=== PATIENT | male | born 1945 | race Caucasian/White ===

== ENCOUNTER → 2016-12-19 | Outpatient (CLI) | payer MEDICARE, BC ==
[2016-12-19 15:41] LABS: CH 32.8; CHCM 32.7; HCT 38.6 % (39.0-53.0); HDW 2.67; HGB 12.7 gm/dL (13.0-17.5); MCH 33.2 pg (25.0-35.0); MCV 100.6 fL (80.0-100.0); Macrocytosis Slight; Mean Platelet Volume 8.6; RBC 3.84 m/uL (4.30-5.90); RDW 14.2 % (11.5-15.5); WBC 7.3 k/uL (3.8-10.6)
[2016-12-19 16:05] LABS: Anion Gap 13 mmol/L; Blood Urea Nitrogen 10 mg/dL (9-20); Carbon Dioxide 25 mmol/L (22-30); Chloride 104 mmol/L (98-107); Non-African American GFR(MDRD) >60 (>60 ml/min/1.73 sqM); Potassium 4.6 mmol/L (3.5-5.1); Sodium 142 mmol/L (137-145)
== END | disposition home or self-care (01) ==
LOC: LABWHC1 14:59
PROVIDERS: ATTEND Internal Medicine Cardiovascular Disease
DX: I47.2 Ventricular tachycardia (principal)
CPT/HCPCS: 36415; 80051; 82565; 84443; 84520; 85027

== ENCOUNTER → 2016-12-21 | Outpatient (CLI) | payer MEDICARE, BC | END | disposition home or self-care (01) | LOC: LABWHC1 11:07 | PROVIDERS: ATTEND Internal Medicine Cardiovascular Disease | DX: E05.90 Thyrotoxicosis, unspecified without thyrotoxic crisis or storm (principal) | CPT/HCPCS: 36415; 84439; 84481 ==

== ENCOUNTER → 2016-12-24 | Outpatient (CLI) | payer MEDICARE, BC | LOC: LABWHC1 10:24 | PROVIDERS: ATTEND Internal Medicine Endocrinology, Diabetes & Metabolism | DX: E05.00 Thyrotoxicosis with diffuse goiter without thyrotoxic crisis or storm (principal) | CPT/HCPCS: 36415; 84439; 84443; 84445; 84480 ==

== ENCOUNTER → 2017-01-09 | Outpatient (CLI) | payer MEDICARE, BC ==
[2017-01-09 12:06] LABS: Blood Urea Nitrogen 9 mg/dL (9-20); Non-African American GFR(MDRD) >60 (>60 ml/min/1.73 sqM)
--- NOTE | 2017-01-09 13:40 | CT ---
EXAMINATION TYPE: CT ChestAbdPelvis w con DATE OF EXAM: 01/09/2017 1:10 PM COMPARISON: CT cap October 01, 2016 HISTORY: f/u for right sided lung ca CT DLP: 830.9 mGycm. Automated Exposure Control for Dose Reduction was Utilized. CONTRAST: CT scan of the thorax, abdomen and pelvis is performed with oral and with IV Contrast, patient inject ed with 100 mL of Omnipaque 300. FINDINGS: LUNGS: Left apical scarring and bleb formation is redemonstrated. Some anterior subpleural fibrosis a djacent to fluid collection anteriorly right midlung is redemonstrated. There is persistent small rig ht basilar pleural effusion or fluid collection contiguous with this felt diminished in size versus p rior. Some right basilar linear scarring and/or atelectasis is redemonstrated with more focal nodular consolidation anteriorly right midlung on axial image 52 measuring 1.8 x 1.1 cm favor inflammatory c hange or atelectasis, neoplasm felt much less likely due to appearance and location but can be follow ed. There is linear scarring left medial lung base on axial image 53 redemonstrated. No left-sided no dules or masses are identified There is no pneumothorax seen. The tracheobronchial tree is patent. Right-sided volume loss with mediastinal shift is redemonstrated. Surgical changes from partial right -sided pneumonectomy are redemonstrated. MEDIASTINUM: There are no greater than 1 cm new noncalcified hilar or mediastinal lymph nodes. There is stable prominent right paratracheal 1.4 x 0.8 cm lymph node. Calcified subcentimeter subcarinal ly mph nodes are redemonstrated No cardiomegaly or pericardial effusion is seen. There is stable left-s ided dual lead pacemaker. Coronary artery calcifications are redemonstrated. Ascending aorta is stabl e measuring up to 4.1 cm in diameter. OTHER: Small degree of bilateral gynecomastia is again seen. LIVER/GB: Small dependent gallstone is redemonstrated in gallbladder. PANCREAS: Some atrophy and calcification in the pancreas consistent with product of chronic pancreati tis is redemonstrated. SPLEEN: No significant abnormality is seen. ADRENALS: 1 cm nodularity to the left adrenal gland on axial image 66 is stable, nonspecific. KIDNEYS: No significant abnormality is seen. BOWEL: A 3.7 cm diverticulum on coronal image 36 along the medial portion of the duodenum is unchange d from prior exam. Normal-appearing appendix is seen from cecum. No suspicious bowel dilatation is se en. GENITAL ORGANS: Prostate gland is stable and felt upper limits of normal in size. LYMPH NODES: No greater than 1cm abdominal or pelvic lymph nodes are appreciated. OSSEOUS STRUCTURES: There is facet arthropathy lower lumbar levels.. Vacuum disc phenomenon lumbosacr al junction is noted. OTHER: There is moderate atherosclerotic change of aorta and pelvic branch vessels. Some ectasia to r ight common iliac artery measuring up to 1.4 cm in diameter is redemonstrated. Small fat-containing umbilical hernia on axial image 95 is stable. IMPRESSION: Interval improvement in small right pleural effusion or fluid collection. No new mass or adenopathy is definitively seen to suggest neoplastic recurrent.
== END | disposition home or self-care (01) ==
LOC: RADCTMAIN 11:17
PROVIDERS: ATTEND Internal Medicine Hematology & Oncology
DX: Z03.89 Encounter for observation for other suspected diseases and conditions ruled out (principal); C34.11 Malignant neoplasm of upper lobe, right bronchus or lung
CPT/HCPCS: 82565; 84520; 71260; 74177; 36415; Q9967

== ENCOUNTER → 2017-02-11 | Outpatient (CLI) | payer MEDICARE, BC ==
[2017-02-11 12:06] LABS: ALT 19 U/L (21-72); AST 16 U/L (17-59)
== END | disposition home or self-care (01) ==
LOC: LABWHC1 11:21
PROVIDERS: ATTEND Internal Medicine Cardiovascular Disease
DX: I47.2 Ventricular tachycardia (principal)
CPT/HCPCS: 36415; 84443; 84450; 84460

== ENCOUNTER → 2017-02-25 | Outpatient (CLI) | payer MEDICARE, BC ==
--- NOTE | 2017-02-26 11:50 | NM ---
EXAMINATION TYPE: NM thyroid image w uptake DATE OF EXAM: 02/26/2017 11:43 AM COMPARISON: CT cap January 09, 2017. Older chest CT December 06, 2015. HISTORY: Graves' disease per order. Family history of thyroid disease per patient. TECHNIQUE: After the intravenous administration of 10.9 mCi Tc 99m Sodium Pertechnetate, thyroid imag ing is performed 10 minutes post injection. Thyroid iodine uptake is calculated after the oral admini stration of 11.0 uCi I-131 capsule. FINDINGS: There is normal distribution of activity throughout the gland. No suspicious increased or d iminished uptake at area of more hypodense probable nodule lower pole level right thyroid lobe. The 4 hour iodine uptake is calculated at 10% (normal range 8-14%). The 24-hour iodine uptake is calculate d at 28% (normal range 15-35%). IMPRESSION: Normal thyroid scan and uptake.
== END | disposition home or self-care (01) ==
LOC: RADNMMAIN 10:43
PROVIDERS: ATTEND Internal Medicine Endocrinology, Diabetes & Metabolism
DX: E05.00 Thyrotoxicosis with diffuse goiter without thyrotoxic crisis or storm (principal)
CPT/HCPCS: 78014; A9528; A9512

== ENCOUNTER → 2017-02-28 | Outpatient (CLI) | payer MEDICARE, BC | END | disposition home or self-care (01) | LOC: LABWHC1 11:53 | PROVIDERS: ATTEND Internal Medicine Endocrinology, Diabetes & Metabolism | DX: E05.90 Thyrotoxicosis, unspecified without thyrotoxic crisis or storm (principal) | CPT/HCPCS: 36415; 84439; 84443; 84445; 84480 ==

== ENCOUNTER → 2017-04-11 | Outpatient (CLI) | payer MEDICARE, BC ==
[2017-04-11 12:00] LABS: Blood Urea Nitrogen 10 mg/dL (9-20); Non-African American GFR(MDRD) >60 (>60 ml/min/1.73 sqM)
--- NOTE | 2017-04-11 14:08 | CT ---
EXAMINATION TYPE: CT ChestAbdPelvis w con DATE OF EXAM: 04/11/2017 COMPARISON: CT cap January 09, 2017. HISTORY: Lung cancer progress study. CT DLP: 1088.6 mGycm. Automated Exposure Control for Dose Reduction was Utilized. CONTRAST: CT scan of the thorax, abdomen and pelvis is performed with oral and with IV Contrast, patient inject ed with 100 mL of Omnipaque 300. FINDINGS: LUNGS: Mild left apical scarring is redemonstrated. There is persistent small right pleural fluid col lection that does not completely layer dependently. No significant change from prior study is seen. T here is additional right basilar scarring redemonstrated. Slightly more prominent nodular right anter ior basilar component measures 15 x 7 mm on current study less prominent than prior exam. No suspicio us new nodule or adenopathy is present. Right-sided volume loss with mediastinal shift is again seen. Right-sided surgical changes are redemonstrated. MEDIASTINUM: There are no greater than 1 cm new hilar or mediastinal lymph nodes. There is stable ri ght paratracheal lymph node measuring 13 x 8 mm on axial image 25. Calcified subcentimeter subcarinal lymph nodes are redemonstrated. No pericardial effusion is seen. Cardiomegaly is redemonstrated. Th ere is dual lead pacemaker/AICD seen. Coronary artery calcification is again seen. Ascending aorta me asures up to 4.0 cm in diameter on axial image 33. OTHER: Bilateral gynecomastia is redemonstrated. LIVER/GB: Tiny dependent gallstone is again seen on axial image 71. PANCREAS: Atrophic calcified pancreas consistent with product of chronic pancreatitis is redemonstrat ed. SPLEEN: No significant abnormality is seen. ADRENALS: No significant abnormality is seen. KIDNEYS: No significant abnormality is seen. BOWEL: Fecal prominence in the rectum is present. No suspicious bowel dilatation is seen. Moderate fe arnold material throughout the distal colon is somewhat prominent. There is stable 3 cm diverticulum of duodenal near axial image 79 there is GENITAL ORGANS: Prostate gland felt within normal limits. LYMPH NODES: No greater than 1cm abdominal or pelvic lymph nodes are appreciated. OSSEOUS STRUCTURES: Facet arthropathy lower lumbar levels is seen. Multilevel spurring and spine is p resent. There is healing or healed right posterior lateral rib fracture deformity of seventh rib rede monstrated. OTHER: There is moderate to severe calcified atherosclerotic change of the distal abdominal aorta ext ending to pelvic branch vessels. Small fat-containing umbilical hernia is stable. IMPRESSION: Postsurgical changes right lung redemonstrated. No new mass or adenopathy is seen to sugg est neoplastic recurrence.
== END | disposition home or self-care (01) ==
LOC: RADCTMAIN 11:14
PROVIDERS: ATTEND Internal Medicine Hematology & Oncology
DX: C34.11 Malignant neoplasm of upper lobe, right bronchus or lung (principal); E05.00 Thyrotoxicosis with diffuse goiter without thyrotoxic crisis or storm; E05.90 Thyrotoxicosis, unspecified without thyrotoxic crisis or storm; Z98.890 Other specified postprocedural states
CPT/HCPCS: 84439; 84443; 82565; 84520; 71260; 74177; 36415; Q9967

== ENCOUNTER → 2017-06-19 | Outpatient (CLI) | payer MEDICARE, BC | END | disposition home or self-care (01) | LOC: LABWHC1 12:25 | PROVIDERS: ATTEND Internal Medicine Endocrinology, Diabetes & Metabolism | DX: E05.90 Thyrotoxicosis, unspecified without thyrotoxic crisis or storm (principal) | CPT/HCPCS: 36415; 84439; 84443 ==

== ENCOUNTER → 2017-06-24 | Outpatient (CLI) | payer MEDICARE, BC ==
[2017-06-24 15:32] LABS: Anion Gap 10 mmol/L; Blood Urea Nitrogen 9 mg/dL (9-20); Carbon Dioxide 26 mmol/L (22-30); Chloride 105 mmol/L (98-107); Magnesium 1.9 mg/dL (1.6-2.3); Non-African American GFR(MDRD) >60 (>60 ml/min/1.73 sqM); Potassium 4.8 mmol/L (3.5-5.1); Sodium 141 mmol/L (137-145)
== END | disposition home or self-care (01) ==
LOC: LABWHC1 14:55
PROVIDERS: ATTEND Internal Medicine Cardiovascular Disease
DX: I47.2 Ventricular tachycardia (principal)
CPT/HCPCS: 36415; 80051; 82565; 83735; 84520

== ENCOUNTER → 2017-08-06 | Outpatient (CLI) | payer MEDICARE, BC ==
[2017-08-06 11:40] LABS: Blood Urea Nitrogen 7 mg/dL (9-20); Non-African American GFR(MDRD) >60 (>60 ml/min/1.73 sqM)
--- NOTE | 2017-08-06 13:16 | CT ---
EXAMINATION TYPE: CT ChestAbdPelvis w con DATE OF EXAM: 08/06/2017 COMPARISON: 04/11/2017 HISTORY: Lung CA CT DLP: 2172 mGycm CONTRAST: CT scan of the chest, abdomen and pelvis is performed with Oral Contrast and with IV Contrast, patien t injected with 100 mL of Omnipaque 300. CT Chest: LUNGS: Partially loculated right-sided pleural effusion persists and may be slightly smaller in size. Adjacent parenchymal scar or atelectasis unchanged. Postoperative changes right hemithorax. No evide nce for suspicious nodule or mass at this time. Left upper lobe emphysematous change. MEDIASTINUM: St able ascending thoracic aorta measures of 4.2 cm AP dimension. The heart is not enlarged. No evidenc e for mediastinal mass or adenopathy. HILAR STRUCTURES: No evidence for mass. No hilar adenopathy is appreciated. OTHER: Bilateral gynecomastia. CONTRAST CT ABDOMEN AND PELVIS FINDINGS: LIVER/GB: No calcified gallstones. No space occupying hepatic lesion. Biliary tree is of normal ca liber. PANCREAS: No inflammation. No distinct mass. Atrophic changes of the pancreas with calcifications n oted compatible with chronic pancreatitis. SPLEEN: No splenic enlargement. No lesion seen. ADRENALS: No nodule. No thickening. KIDNEYS/BLADDER: No hydronephrosis. No nephrolithiasis. No distinct renal mass. BOWEL: Normal appendix. Normal bowel caliber. No inflammation. GENITAL ORGANS: No gross abnormality. LYMPH NODES: No greater than 1cm abdominal or pelvic lymph nodes are appreciated. AORTA: No significant abnormality. OSSEOUS STRUCTURES: No significant abnormality is seen. OTHER: No significant additional abnormality is seen. IMPRESSION: 1. Postoperative changes right hemithorax is partially loculated pleural effusion. No evidence for re current or residual neoplasm. No evidence for metastatic disease at this time.
== END | disposition home or self-care (01) ==
LOC: RADCTMAIN 11:02
PROVIDERS: ATTEND Internal Medicine Hematology & Oncology
DX: C34.11 Malignant neoplasm of upper lobe, right bronchus or lung (principal); J90 Pleural effusion, not elsewhere classified; Z98.890 Other specified postprocedural states
CPT/HCPCS: 82565; 84520; 71260; 74177; 36415; Q9967

== ENCOUNTER 2017-10-21 09:21 | Inpatient (IN) | payer MEDICARE, BC ==
--- NOTE | 2017-10-21 09:39 | ED ---
General Adult HPI - General Chief complaint: Shortness of Breath Stated complaint: SHAHID Time Seen by Provider: 10/21/17 09:25 Source: patient, family, RN notes reviewed Mode of arrival: wheelchair - History of Present Illness Initial comments: This is a 71-year-old male who presents emergency department with past medical history significant for lung cancer and a lobectomy. Patient states he is a smoker continues to smoke. Patient comes in today complaining of difficulty breathing which is worsening over the last few weeks. Family notes that he is much more pale than normal. Patient denies being on any blood thinners. Patient denies any black or bloody stools. Patient denies abdominal pain patient denies nausea vomiting diarrhea. Patient denies any chest pain or palpitations. Patient denies headache patient denies any numbness weakness. Patient denies lightheadedness dizziness or near syncopal episode. - Related Data Home Medications Medication Instructions Recorded Confirmed Aspirin [Adult Low Dose Aspirin EC] 81 mg PO DAILY 01/06/16 10/21/17 Carvedilol 6.25 mg PO BID 01/06/16 10/21/17 Citalopram Hydrobromide [CeleXA] 40 mg PO DAILY 10/21/17 10/21/17 Gemfibrozil [Lopid] 600 mg PO AC-BID 10/21/17 10/21/17 Mexiletine [Mexitil] 150 mg PO DAILY 10/21/17 10/21/17 Omeprazole 40 mg PO DAILY 10/21/17 10/21/17 Potassium Chloride ER [K-Dur 10] 10 meq PO DAILY 10/21/17 10/21/17 Pregabalin [Lyrica] 75 mg PO BID 10/21/17 10/21/17 Rosuvastatin [Crestor] 10 mg PO DAILY 10/21/17 10/21/17 Saw Benton 450mg 900 mg PO BID 10/21/17 10/21/17 Tamsulosin [Flomax] 0.4 mg PO DAILY 10/21/17 10/21/17 metFORMIN HCL 1,000 mg PO BID 10/21/17 10/21/17 Allergies Allergy/AdvReac Type Severity Reaction Status Date / Time No Known Allergies Allergy Verified 10/21/17 10:39 Review of Systems ROS Statement: Those systems with pertinent positive or pertinent negative responses have been documented in the HPI. ROS Other: All systems not noted in ROS Statement are negative. Past Medical History Past Medical History: Cancer, Diabetes Mellitus, GERD/Reflux, Hyperlipidemia, Hypertension, Renal Disease Additional Past Medical History / Comment(s): R sided LUNG CA, cardiomyopathy with AICD, STATES WAS TOLD HAD KIDNEY STONES IN PAST, FREQUENT SINUSITIS, IDDM diagnosed within the past year, History of Any Multi-Drug Resistant Organisms: None Reported Past Surgical History: AICD, Orthopedic Surgery Additional Past Surgical History / Comment(s): 06/04/16 Robotic assisted R thoracoscopy, R upper lobectomy, mediastinal lymph node disection, cryoablation intercostal nerves 3-7. Other surgical hx: AICD, DFT, RT SHOULDER SX for dislocation, AICHA CATARACTS, bilateral lasik eye surgery, testicular surgery, Past Anesthesia/Blood Transfusion Reactions: No Reported Reaction Type of Cardiac Device: AICD Device Placement Date:: 2005 [employer] Past Psychological History: Anxiety Smoking Status: Current every day smoker Past Alcohol Use History: None Reported Past Drug Use History: None Reported - Past Family History Father Family Medical History: Cancer Additional Family Medical History / Comment(s): Father of lung cancer in his 80's Mother Family Medical History: Myocardial Infarction ([place]) Additional Family Medical History / Comment(s): Mother of [place] in her 80's General Exam - General Exam Comments Initial Comments: GENERAL: Patient is well-developed and well-nourished. Patient is nontoxic and well- hydrated and is in mild distress. ENT: Neck is soft and supple. No significant lymphadenopathy is noted. Oropharynx is clear. Moist mucous membranes. Neck has full range of motion without eliciting any pain. EYES: The sclera were anicteric and conjunctiva is pale. Extraocular movements were intact and pupils were equal round and reactive to light. Eyelids were unremarkable. PULMONARY: Unlabored respirations. Good breath sounds bilaterally. No audible rales rhonchi or wheezing was noted. CARDIOVASCULAR: There is a regular rate and rhythm without any murmurs gallops or rubs. ABDOMEN: Soft and nontender with normal bowel sounds. No palpable organomegaly was noted. There is no palpable pulsatile mass. SKIN: Patient's skin is extremely pale NEUROLOGIC: Patient is alert and oriented x3. Cranial nerves II through XII are grossly intact. Motor and sensory are also intact. Normal speech, volume and content. Symmetrical smile. MUSCULOSKELETAL: Normal extremities with adequate strength and full range of motion. No lower extremity swelling or edema. No calf tenderness. LYMPHATICS: No significant lymphadenopathy is noted PSYCHIATRIC: Normal psychiatric evaluation. Normal interpersonal interactions appears functionally intact in deals appropriately with others. No signs of depression. No signs of anxiety. Course Vital Signs 10/21/17 09:23 Temperature 97 F L Pulse Rate 77 Respiratory 20 Rate Blood Pressure 130/58 O2 Sat by Pulse 100 Oximetry Medical Decision Making - Medical Decision Making EKG shows sinus rhythm at a rate of 76 bpm [place] interval 236 QRS is 108 QT interval is 410 QTC is 461. Patient's EKG shows no ST segment elevation or depression or T wave abnormalities are noted Chest x-ray shows right-sided pleural effusion. Patient's hemoglobin was 6.3 so I gave the patient a unit of packed red blood cells. I spoke with the primary medical care doctor admitted the patient and wrote admitting orders - Lab Data Result diagrams: 10/21/17 09:43 10/21/17 09:43 Lab Results 10/21/17 10/21/17 10/21/17 Range/Units 09:43 09:43 09:43 WBC 1.4 L* (3.8-10.6) k/uL RBC 1.95 L (4.30-5.90) m/uL Hgb 6.3 L* (13.0-17.5) gm/dL Hct 18.7 L* (39.0-53.0) % MCV 95.8 (80.0-100.0) fL MCH 32.3 (25.0-35.0) pg MCHC 33.8 (31.0-37.0) g/dL RDW 25.3 H (11.5-15.5) % Plt Count 62 L (150-450) k/uL Neutrophils % 42 % Lymphocytes % 46 % Monocytes % 8 % Eosinophils % 1 % Basophils % 1 % Neutrophils # 0.6 L (1.3-7.7) k/uL Lymphocytes # 0.6 L (1.0-4.8) k/uL Monocytes # 0.1 (0-1.0) k/uL Eosinophils # 0.0 (0-0.7) k/uL Basophils # 0.0 (0-0.2) k/uL Manual Slide Review Performed Hypochromasia Slight Poikilocytosis Moderate Anisocytosis Marked Microcytosis Slight Macrocytosis Moderate Fragmented RBCs Present PT (9.0-12.0) sec INR (<1.2) APTT (22.0-30.0) sec Sodium (137-145) mmol/L Potassium (3.5-5.1) mmol/L Chloride (98-107) mmol/L Carbon Dioxide (22-30) mmol/L Anion Gap mmol/L BUN (9-20) mg/dL Creatinine (0.66-1.25) mg/dL Est GFR (MDRD) Af Amer (>60 ml/min/1.73 sqM) Est GFR (MDRD) Non-Af (>60 ml/min/1.73 sqM) Glucose (74-99) mg/dL Calcium (8.4-10.2) mg/dL Total Bilirubin (0.2-1.3) mg/dL AST (17-59) U/L ALT (21-72) U/L Alkaline Phosphatase (38-126) U/L Total Creatine Kinase 33 L (55-170) U/L CK-MB (CK-2) 1.6 (0.0-2.4) ng/mL CK-MB (CK-2) Rel Index 4.8 Troponin I <0.012 (0.000-0.034) ng/mL Total Protein (6.3-8.2) g/dL Albumin (3.5-5.0) g/dL Stool Occult Blood (Negative) Blood Type A Negative Blood Type Recheck No Antibody Screen NEGATIVE Crossmatch See Detail Spec Expiration Date 10/24/2017234210/21/17 10/21/17 10/21/17 Range/Units 09:43 09:43 09:43 WBC (3.8-10.6) k/uL RBC (4.30-5.90) m/uL Hgb (13.0-17.5) gm/dL Hct (39.0-53.0) % MCV (80.0-100.0) fL MCH (25.0-35.0) pg MCHC (31.0-37.0) g/dL RDW (11.5-15.5) % Plt Count (150-450) k/uL Neutrophils % % Lymphocytes % % Monocytes % % Eosinophils % % Basophils % % Neutrophils # (1.3-7.7) k/uL Lymphocytes # (1.0-4.8) k/uL Monocytes # (0-1.0) k/uL Eosinophils # (0-0.7) k/uL Basophils # (0-0.2) k/uL Manual Slide Review Hypochromasia Poikilocytosis Anisocytosis Microcytosis Macrocytosis Fragmented RBCs PT 11.4 (9.0-12.0) sec INR 1.2 H (<1.2) APTT 24.3 (22.0-30.0) sec Sodium 133 L (137-145) mmol/L Potassium 4.3 (3.5-5.1) mmol/L Chloride 102 (98-107) mmol/L Carbon Dioxide 21 L (22-30) mmol/L Anion Gap 10 mmol/L BUN 14 (9-20) mg/dL Creatinine 0.80 (0.66-1.25) mg/dL Est GFR (MDRD) Af Amer >60 (>60 ml/min/1.73 sqM) Est GFR (MDRD) Non-Af >60 (>60 ml/min/1.73 sqM) Glucose 137 H (74-99) mg/dL Calcium 8.9 (8.4-10.2) mg/dL Total Bilirubin 1.1 (0.2-1.3) mg/dL AST 12 L (17-59) U/L ALT 25 (21-72) U/L Alkaline Phosphatase 66 (38-126) U/L Total Creatine Kinase (55-170) U/L CK-MB (CK-2) (0.0-2.4) ng/mL CK-MB (CK-2) Rel Index Troponin I (0.000-0.034) ng/mL Total Protein 6.7 (6.3-8.2) g/dL Albumin 4.0 (3.5-5.0) g/dL Stool Occult Blood Negative (Negative) Blood Type Blood Type Recheck Antibody Screen Crossmatch Spec Expiration Date Disposition Clinical Impression: Anemia Disposition: [facility] Referrals: Bradly Yang MD [Primary Care Provider] - 1-2 days Time of Disposition: 10:13
[2017-10-21 09:52] LABS: Anisocytosis Marked; Basophils % (A) 1 %; Eosinophils % (A) 1 %; Hypochromasia Slight; Lymphocytes # (A) 0.6 k/uL (1.0-4.8); Lymphocytes % (A) 46 %; MCH 32.3 pg (25.0-35.0); MCHC 33.8 g/dL (31.0-37.0); MCV 95.8 fL (80.0-100.0); Macrocytosis Moderate; Mean Platelet Volume 13.2; Microcytosis Slight; Monocytes # (A) 0.1 k/uL (0-1.0); Monocytes % (A) 8 %; Neutrophils # (A) 0.6 k/uL (1.3-7.7); Neutrophils % (A) 42 %; Poikilocytosis Moderate; RBC 1.95 m/uL (4.30-5.90)
[2017-10-21 10:03] LABS: INR 1.2 (<1.2); Partial Thromboplastin Time 24.3 sec (22.0-30.0); Prothrombin Time 11.4 sec (9.0-12.0)
[2017-10-21 10:04] LABS: ALT 25 U/L (21-72); AST 12 U/L (17-59); Alkaline Phosphatase 66 U/L (38-126); Anion Gap 10 mmol/L; Blood Urea Nitrogen 14 mg/dL (9-20); Calcium 8.9 mg/dL (8.4-10.2); Carbon Dioxide 21 mmol/L (22-30); Chloride 102 mmol/L (98-107); Glucose 137 mg/dL (74-99); Potassium 4.3 mmol/L (3.5-5.1); Sodium 133 mmol/L (137-145); Total Bilirubin 1.1 mg/dL (0.2-1.3); Total Protein 6.7 g/dL (6.3-8.2)
--- NOTE | 2017-10-21 10:08 | XR ---
EXAMINATION TYPE: XR chest 2V DATE OF EXAM: 10/21/2017 HISTORY: difficulty breathing. REFERENCE: Previous study dated 06/21/2016. FINDINGS: There is a bipolar pacemaker in place on the left. The lungs are overinflated. The heart is enlarged. There is a worsening, chronic right pleural reacti on. This may represent some loculated fluid or pleural thickening.. IMPRESSION: 1. COPD. 2. CARDIOMEGALY. 3. WORSENING RIGHT-SIDED PLEURAL REACTION.
[2017-10-21 10:13] LABS: RDW 25.3 % (11.5-15.5)
[2017-10-21 10:14] LABS: Creatine Kinase 33 U/L (55-170); WBC 1.4 k/uL (3.8-10.6)
[2017-10-21 10:15] LABS: HCT 18.7 % (39.0-53.0); HGB 6.3 gm/dL (13.0-17.5)
[2017-10-21 10:26] LABS: Creatine Kinase MB 1.6 ng/mL (0.0-2.4); Troponin I <0.012 ng/mL (0.000-0.034)
[2017-10-21 10:29] LABS: Platelet Count 62 k/uL (150-450)
[2017-10-21 10:31] LABS: RBC Fragments Present
[2017-10-21] MEDS ORDERED: SODIUM CHLORIDE 0.9% 1,000 ML IV ONE (10:51)
--- NOTE | 2017-10-21 13:58 | P.CONS ---
History of Present Illness - Reason for Consult Consult date: 10/21/17 New onset Pancytopenia. History of lung cancer - History of Present Illness The patient is a 71-year-old gentleman, well-known to myself. 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 He underwent right upper lobectomy , revealing a 3.2 cm, cell cancer. Initially one lymph node was felt to be involved, but subsequently this was felt to be a fragment of the main tumor. After recovery from surgery, the patient had adjuvant chemotherapy, which he completed about a year ago. He was then placed on observation. The patient was admitted a few weeks ago to [facility], with COPD exacerbation and suspected pneumonia. He has a chronic right-sided located pleural effusion since his surgery, which is slowly diminished in size. It was some concern during that admission about progression, but comparison of imaging ruled that out. The patient was treated with antibiotics and steroids and aerosols, and was subsequently discharged post improvement. He has unfortunately continued to smoke. It appears that he required antibiotics again with a Z-Bethel, as well as oral steroids. Despite the same, his breathing continued to worsen, over the past 2 weeks. He also reported a cough with minimal mostly clear expectoration. Due to progressive shortness of breath he came back to the emergency room. His family had also noted significant pallor. Chest x-ray noted possible progression of the right pleural effusion. Interestingly his CBC showed pancytopenia with white count 1.4, hemoglobin of 6.3, platelets of 62. This is a new finding, and recovered after completion of chemotherapy. Therefore admitted, and consult placed a further evaluation. He is currently receiving a unit of blood. Review of Systems Constitutional: Reports fatigue, Reports weakness Eyes: denies blurred vision, denies pain Ears: deny: decreased hearing, ear discharge, earache, tinnitus Ears, nose, mouth and throat: Reports nasal congestion, Reports post-nasal drip , Denies headache, Denies sore throat Cardiovascular: Reports dyspnea on exertion Respiratory: Reports cough with sputum, Reports dyspnea Gastrointestinal: Denies abdominal pain, Denies diarrhea, Denies nausea, Denies vomiting Genitourinary: Reports urinary frequency Musculoskeletal: Reports muscle weakness Integumentary: Denies pruritus, Denies rash Neurological: Reports weakness Psychiatric: Denies anxiety, Denies depression Endocrine: Reports fatigue, Denies weight change Hematologic/Lymphatic: Reports as per HPI Past Medical History Past Medical History: Cancer, Diabetes Mellitus, GERD/Reflux, Hyperlipidemia, Hypertension, Renal Disease Additional Past Medical History / Comment(s): R sided LUNG CA, cardiomyopathy with AICD, STATES WAS TOLD HAD KIDNEY STONES IN PAST, FREQUENT SINUSITIS, IDDM diagnosed within the past year, History of Any Multi-Drug Resistant Organisms: None Reported Past Surgical History: AICD, Orthopedic Surgery Additional Past Surgical History / Comment(s): 06/04/16 Robotic assisted R thoracoscopy, R upper lobectomy, mediastinal lymph node disection, cryoablation intercostal nerves 3-7. Other surgical hx: AICD, DFT, RT SHOULDER SX for dislocation, AICHA CATARACTS, bilateral lasik eye surgery, testicular surgery, Past Anesthesia/Blood Transfusion Reactions: No Reported Reaction Type of Cardiac Device: AICD Device Placement Date:: 2005 [employer] Past Psychological History: Anxiety Additional Psychological History / Comment(s): Pt currently resides with son. He is independent. He drives. Smoking Status: Current every day smoker Past Alcohol Use History: None Reported Additional Past Alcohol Use History / Comment(s): SMOKES 1 PPD SINCE AGE OF 17 OR YOUNGER Past Drug Use History: None Reported - Past Family History Father Family Medical History: Cancer Additional Family Medical History / Comment(s): Father of lung cancer in his 80's Mother Family Medical History: Myocardial Infarction ([place]) Additional Family Medical History / Comment(s): Mother of [place] in her 80's Medications and Allergies Home Medications Medication Instructions Recorded Confirmed Type Aspirin [Adult Low Dose Aspirin EC] 81 mg PO DAILY 01/06/16 10/21/17 History Carvedilol 6.25 mg PO BID 01/06/16 10/21/17 History Citalopram Hydrobromide [CeleXA] 40 mg PO DAILY 10/21/17 10/21/17 History Gemfibrozil [Lopid] 600 mg PO AC-BID 10/21/17 10/21/17 History Mexiletine [Mexitil] 150 mg PO DAILY 10/21/17 10/21/17 History Omeprazole 40 mg PO DAILY 10/21/17 10/21/17 History Potassium Chloride ER [K-Dur 10] 10 meq PO DAILY 10/21/17 10/21/17 History Pregabalin [Lyrica] 75 mg PO BID 10/21/17 10/21/17 History Rosuvastatin [Crestor] 10 mg PO DAILY 10/21/17 10/21/17 History Saw [place] 450mg 900 mg PO BID 10/21/17 10/21/17 History Tamsulosin [Flomax] 0.4 mg PO DAILY 10/21/17 10/21/17 History guaiFENesin-DM 600/30MG [Mucinex 1 each PO Q12HR 10/21/17 10/21/17 History Dm] metFORMIN HCL 1,000 mg PO BID 10/21/17 10/21/17 History Allergies Allergy/AdvReac Type Severity Reaction Status Date / Time No Known Allergies Allergy Verified 10/21/17 10:39 Physical Exam Vitals: Vital Signs Temp Pulse Resp BP Pulse Ox 10/21/17 11:48 98 F 72 18 109/57 100 10/21/17 11:20 98 F 74 18 113/55 100 10/21/17 11:07 98.2 F 72 18 113/66 10/21/17 09:23 97 F L 77 20 130/58 100 Intake and Output 10/20/17 10/21/17 10/21/17 22:59 06:59 14:59 Intake Total 0 Balance 0 Intake: Blood Product 0 Rc As-1 Unit 0 [id number] Other: Weight 99.79 kg Patient Weight 10/22/17 06:59 Weight 99.79 kg - Constitutional General appearance: no acute distress - EENT Eyes: EOMI, PERRLA ENT: hearing grossly normal, normal oropharynx - Neck Neck: no lymphadenopathy Thyroid: bilateral: normal size - Respiratory Respiratory: bilateral: diminished, wheezing - Cardiovascular Rhythm: regular Heart sounds: normal: S1, S2 - Gastrointestinal General gastrointestinal: normal bowel sounds, soft - Integumentary Integumentary: normal - Neurologic Neurologic: CNII-XII intact - Musculoskeletal Musculoskeletal: generalized weakness, strength equal bilaterally - Psychiatric Psychiatric: A&O x's 3, appropriate affect Results CBC & Chem 7: 10/21/17 09:43 10/21/17 09:43 Labs: Abnormal Lab Results - Last 24 Hours (Table) 10/21/17 10/21/17 10/21/17 Range/Units 09:43 09:43 09:43 WBC 1.4 L* (3.8-10.6) k/uL RBC 1.95 L (4.30-5.90) m/uL Hgb 6.3 L* (13.0-17.5) gm/dL Hct 18.7 L* (39.0-53.0) % RDW 25.3 H (11.5-15.5) % Plt Count 62 L (150-450) k/uL Neutrophils # 0.6 L (1.3-7.7) k/uL Lymphocytes # 0.6 L (1.0-4.8) k/uL INR (<1.2) Sodium (137-145) mmol/L Carbon Dioxide (22-30) mmol/L Glucose (74-99) mg/dL AST (17-59) U/L Total Creatine Kinase 33 L (55-170) U/L Crossmatch See Detail 10/21/17 10/21/17 Range/Units 09:43 09:43 WBC (3.8-10.6) k/uL RBC (4.30-5.90) m/uL Hgb (13.0-17.5) gm/dL Hct (39.0-53.0) % RDW (11.5-15.5) % Plt Count (150-450) k/uL Neutrophils # (1.3-7.7) k/uL Lymphocytes # (1.0-4.8) k/uL INR 1.2 H (<1.2) Sodium 133 L (137-145) mmol/L Carbon Dioxide 21 L (22-30) mmol/L Glucose 137 H (74-99) mg/dL AST 12 L (17-59) U/L Total Creatine Kinase (55-170) U/L Crossmatch Chest x-ray: report reviewed Assessment and Plan (1) Pancytopenia Narrative/Plan: This is a new finding for the patient. He did have some cytopenias when on chemotherapy, but these have subsequently recovered. Agree with transfusing in the acute setting, as needed, to keep hemoglobin above 7. Platelet counts are currently adequate. I will start the patient on filgrastim to improve his WBC. Regarding etiology, a possibility could be suppression of the bone marrow ( which could be compromised somewhat at baseline due to prior chemotherapy), due to infection, such as a viral infection affecting the respiratory tract, given his symptoms. I will order workup to rule out other causes of pancytopenia. Another concern in this patient could be chemotherapy related myelodysplasia or even leukemia, counts do not improve with resolution of his presenting complaints. Current Visit: Yes Status: Acute Code(s): D61.818 - OTHER PANCYTOPENIA SNOMED Code(s): 491933982 (2) Squamous cell lung cancer Narrative/Plan: She is status post surgery and chemotherapy. Most recent imaging, done within the last month or so at [facility] did not show any evidence of progression. Noted, he does have a chronic small right-sided pleural effusion since his surgery, which have not shown any evidence of progression. On clinical exam today, there does not appear to be definite evidence of increase. CT of the chest will be repeated Current Visit: Yes Status: Acute Code(s): C34.90 - MALIGNANT NEOPLASM OF UNSP PART OF UNSP BRONCHUS OR LUNG SNOMED Code(s): 442278132 Plan: Defer to the admitting service and other consultants for management of his respiratory issues and other medical problems
[2017-10-21] MEDS ORDERED: RX INFO: IV CONTRAST WAS GIVEN 1 EACH MISC MISCELLANE PRN (14:02)
[2017-10-21] MEDS ORDERED: guaiFENesin SYRUP 100MG/5ML 200 MG/10 ML CUP PO PRN (14:30)
[2017-10-21 17:00] LABS: Glucose,Whole Blood 177 mg/dL (75-99)
[2017-10-21] MEDS: GEMFIBROZIL 600 MG TAB PO SCH (17:44)
[2017-10-21] MEDS: INSULIN ASPART 100 UNIT/ML 1 ML 10 ML VIAL SQ SCH ×2 (17:48→20:46)
[2017-10-21 18:59] LABS: Anisocytosis Marked; Basophils % (A) 1 %; Eosinophils % (A) 1 %; Hypochromasia Slight; Lymphocytes # (A) 0.8 k/uL (1.0-4.8); Lymphocytes % (A) 56 %; MCH 31.4 pg (25.0-35.0); MCHC 33.6 g/dL (31.0-37.0); MCV 93.3 fL (80.0-100.0); Macrocytosis Slight; Mean Platelet Volume 11.5; Microcytosis Slight; Monocytes # (A) 0.1 k/uL (0-1.0); Monocytes % (A) 6 %; Neutrophils # (A) 0.5 k/uL (1.3-7.7); Neutrophils % (A) 33 %; Platelet Count 65 k/uL (150-450); Poikilocytosis Moderate; RBC 2.14 m/uL (4.30-5.90)
[2017-10-21 19:01] LABS: HGB 6.7 gm/dL (13.0-17.5); RDW 25.1 % (11.5-15.5); WBC 1.4 k/uL (3.8-10.6)
[2017-10-21 20:17] LABS: Polychromasia Present
[2017-10-21 20:32] LABS: Glucose,Whole Blood 145 mg/dL (75-99)
[2017-10-21] MEDS: guaiFENesin-DM 600/30MG 1 EACH TAB.ER.12H PO SCH (20:45)
[2017-10-21] MEDS: metFORMIN 500 MG TAB PO SCH (20:45)
[2017-10-21] MEDS: CARVEDILOL 6.25 MG TAB PO SCH (20:45)
[2017-10-21] MEDS: PREGABALIN 75 MG CAP PO SCH (20:48)
[2017-10-21 23:37] LABS: Hemoglobin A1C 6.6 % (4.0-6.0)
[2017-10-21 23:57] LABS: Anisocytosis Marked; Hypochromasia Slight; MCH 31.8 pg (25.0-35.0); MCHC 33.4 g/dL (31.0-37.0); MCV 95.2 fL (80.0-100.0); Macrocytosis Moderate; Mean Platelet Volume 13.1; Microcytosis Slight; Poikilocytosis Moderate; RBC 1.97 m/uL (4.30-5.90)
[2017-10-21 23:58] LABS: RDW 25.2 % (11.5-15.5)
[2017-10-22 00:03] LABS: HGB 6.2 gm/dL (13.0-17.5); WBC 1.1 k/uL (3.8-10.6)
[2017-10-22 00:04] LABS: HCT 18.7 % (39.0-53.0); Platelet Count 57 k/uL (150-450)
[2017-10-22] MEDS: FILGRASTIM-SNDZ 300 MCG/0.5 ML SYRINGE SQ SCH ×2 (00:21→08:45)
[2017-10-22] MEDS: ZOLPIDEM 10 MG TAB PO PRN ×2 (00:21→19:55)
[2017-10-22 00:31] LABS: Band Neutrophils % 2 %; Eosinophils # (M) 0.01 k/uL (0-0.7); Large Platelets Present; Lymphocytes # (M) 0.62 k/uL (1.0-4.8); Monocytes # (M) 0.06 k/uL (0-1.0); Neutrophils % (M) 36 %; Nucleated Red Blood Cells 0 /100 WBC (0-0); Total Cells Counted 100
[2017-10-22 06:48] LABS: Anisocytosis Marked; HCT 22.9 % (39.0-53.0); HGB 7.4 gm/dL (13.0-17.5); Hypochromasia Slight; MCH 31.4 pg (25.0-35.0); MCHC 32.4 g/dL (31.0-37.0); MCV 96.9 fL (80.0-100.0); Macrocytosis Moderate; Mean Platelet Volume 12.6; Microcytosis Slight; Poikilocytosis Slight; RBC 2.36 m/uL (4.30-5.90); WBC 2.6 k/uL (3.8-10.6)
[2017-10-22 06:49] LABS: Platelet Count 65 k/uL (150-450); RDW 25.7 % (11.5-15.5)
[2017-10-22 08:07] LABS: Glucose,Whole Blood 157 mg/dL (75-99)
--- NOTE | 2017-10-22 08:35 | HP ---
HISTORY AND PHYSICAL CHIEF COMPLAINT: Pancytopenia, history of lung cancer, severe shortness of breath. HISTORY OF PRESENT ILLNESS: This 71-year-old white male diagnosed squamous cell lung cancer on May 2016, right upper lobe. He underwent right lobectomy of his squamous cell cancer. He had adjunctive chemotherapy after that time, about a year ago. He came in the hospital recently with COPD exacerbation and pneumonia and chronic right-sided pleural effusion. He was discharged home. He continues to smoke at home. He was given a Z-Bethel for shortness of breath recently. His breathing became worse over the last 2 weeks. Came into the hospital at this time with increasing pleural effusion of the right lower lobe. Pancytopenia on CBC which is brand new after chemotherapy. Received a unit of blood. His hemoglobin still is only 6.7. REVIEW OF SYSTEMS: CONSTITUTIONAL: Severe fatigue and weakness PULMONARY: Persistent short of breath. GI: Nausea. Otherwise, fourteen point review of systems negative except for mentioned in HPI. PAST MEDICAL HISTORY: Diabetes mellitus, GERD, dyslipidemia, hypertension, cancer, cardiomyopathy, ICD, history of renal stones, chronic sinusitis, insulin-dependent diabetes mellitus, bilateral cataract surgery. SOCIAL HISTORY: Current everyday smoker. No alcohol. No illicit drugs. FAMILY HISTORY: Father cancer of the lungs. Mother with myocardial infarction. LABS: Reviewed. PHYSICAL EXAMINATION: VITAL SIGNS: Reviewed. CARDIOVASCULAR: S1, S2. LUNGS: Show scattered rhonchi and wheeze. Decreased breath sounds x4. GI: Distended, soft. HEMATOLOGY: Negative Homans. PSYCH: Fair mood and affect. OPHTHALMOLOGICAL: Pupils equal, round, reactive to light and accommodation. ENDOCRINE: BMI is over 40. White count 1.4, hemoglobin 6.3 up to 6.7, BUN of 14, creatinine 0.80. ASSESSMENT: 1. Pancytopenia. Continue with transfuse him a unit of blood as his severe anemia below 7. Myelodysplasia or even leukemia possibly. Continue to transfuse him. 2. Squamous cell lung cancer. 3. Nicotine addiction. 4. Chronic obstructive pulmonary disease exacerbation. PLAN: Continue with blood transfusions. Respiratory treatments for breathing. Pulmonary consult for pleural effusion, worsening respiratory status. MMODL / IJN: [id number] /
[2017-10-22] MEDS: INSULIN ASPART 100 UNIT/ML 1 ML 10 ML VIAL SQ SCH ×4 (08:46→20:05)
[2017-10-22] MEDS: ATORVASTATIN 20 MG TAB PO SCH (08:46)
[2017-10-22] MEDS: CITALOPRAM HYDROBROMIDE 20 MG TAB PO SCH (08:46)
[2017-10-22] MEDS: PANTOPRAZOLE 40 MG TABLET PO SCH (08:46)
[2017-10-22] MEDS: CARVEDILOL 6.25 MG TAB PO SCH ×2 (08:46→19:54)
[2017-10-22] MEDS: guaiFENesin-DM 600/30MG 1 EACH TAB.ER.12H PO SCH ×2 (08:46→19:55)
[2017-10-22] MEDS: GEMFIBROZIL 600 MG TAB PO SCH ×2 (08:46→17:44)
[2017-10-22] MEDS: MEXILETINE 150 MG CAP PO SCH (08:47)
[2017-10-22] MEDS: TAMSULOSIN 0.4 MG CAP.ER.24H PO SCH (08:47)
[2017-10-22] MEDS: metFORMIN 500 MG TAB PO SCH ×2 (08:47→19:54)
[2017-10-22] MEDS: PREGABALIN 75 MG CAP PO SCH ×2 (08:53→19:55)
--- NOTE | 2017-10-22 10:09 | CT ---
EXAMINATION TYPE: CT chest w con DATE OF EXAM: 10/22/2017 COMPARISON: 08/06/2017 HISTORY: Lung cancer, Chronic pleural effusion CT DLP: 457.60 mGycm, Automated exposure control for dose reduction was used. CONTRAST: Performed injected with 100 ml mL of Omnipaque 300. TECHNIQUE: Axial images were obtained at 5 mm thick sections. Reconstructed images are reviewed on [employer] computer in the coronal plane. FINDINGS: Limited Portion of the thyroid visualized is normal. There is a spiculated area within the left apex measuring 0.6 cm present previously. Some subsegmenta l atelectasis may be adjacent to the right lung base. Some spiculated density may be along the latera l right lung base measuring 0.8 cm, series 4 image 48. This may have some slight increased fullness c ompared to the previous exam. There is fluid at the right lung base. Pattern suggests there may be so me loculation present. This appears stable from 08/06/2017 There is an enlarged pretracheal lymph node measuring 1.5 cm. Multiple small aortopulmonic window ly mph nodes are present. Some right hilar and left hilar adenopathy is present. On the right this is en larged measuring 1.2 cm. Adenopathy is increasing in size and number from comparison. The ascending a christiano diameter at the level of the main pulmonary artery is 4.5 cm. This may be increased from compari son. The main pulmonary artery diameter at the bifurcation is 3.[address] sections are obtained through the upper abdomen. Abdomen is essentially unremarkable. IMPRESSIONS: 1. There is some slight increase in size of linear markings at the right lung base. Underlying mass i s not excluded. This is at the location of the patient's previous cancer. This could also be volume a veraging with chronic scarring. Some stable scarring may be at the left apex. 2. Aneurysm of the ascending thoracic aorta, increased in size from July 2017. 3. Small right pleural effusion may be partially loculated. 4. Increasing mediastinal adenopathy, some of which is enlarged.
[2017-10-22] MEDS: NICOTINE 21MG/24HR PATCH TRANSDERM SCH (10:18)
--- NOTE | 2017-10-22 10:32 | P.PN ---
Subjective Progress Note Date: 10/22/17 Principal diagnosis: SHAHID, pancytopenia, Hx NSCLC Objective - Vital Signs Vital signs: Vital Signs Temp 97.8 F 10/22/17 07:00 Pulse 83 10/22/17 07:00 Resp 16 10/22/17 07:00 BP 120/65 10/22/17 07:00 Pulse Ox 100 10/22/17 07:00 Intake & Output 10/21/17 10/22/17 10/22/17 18:59 06:59 18:59 Intake Total 310 310 Output Total 400 Balance -90 310 Weight 99.79 kg Intake: Blood Product 310 310 Rc As-1 Unit 310 [id number] Rc As-1 Unit 310 [id number] Output: Urine 400 Other: Voiding Method Toilet Toilet # Voids 1 - Constitutional General appearance: Present: average body habitus, cooperative, mild distress - EENT EENT Comment(s): periorbital edema noted, R>L Eyes: Present: anicteric sclerae - Respiratory Respiratory: bilateral: diminished - Cardiovascular Heart sounds: normal: S1, S2 - Peripheral edema leg Peripheral Edema: bilateral: None - Gastrointestinal General gastrointestinal: Present: normal bowel sounds - Integumentary Integumentary: Present: pale - Neurologic Neurologic: Present: CNII-XII intact - Musculoskeletal Musculoskeletal: Present: strength equal bilaterally - Psychiatric Psychiatric: Present: A&O x's 3, appropriate affect, intact judgment & insight - Labs CBC & Chem 7: 10/22/17 06:10 10/21/17 09:43 Labs: Abnormal Lab Results - Last 24 Hours (Table) 10/21/17 10/21/17 10/21/17 Range/Units 09:43 09:43 09:43 WBC 1.4 L* (3.8-10.6) k/uL RBC 1.95 L (4.30-5.90) m/uL Hgb 6.3 L* (13.0-17.5) gm/dL Hct 18.7 L* (39.0-53.0) % RDW 25.3 H (11.5-15.5) % Plt Count 62 L (150-450) k/uL Neutrophils # 0.6 L (1.3-7.7) k/uL Neutrophils # (Manual) (1.3-7.7) k/uL Lymphocytes # 0.6 L (1.0-4.8) k/uL Lymphocytes # (Manual) (1.0-4.8) k/uL POC Glucose (mg/dL) (75-99) mg/dL Hemoglobin A1c (4.0-6.0) % Total Creatine Kinase 33 L (55-170) U/L Crossmatch See Detail 10/21/17 10/21/17 10/21/17 Range/Units 16:56 17:14 17:14 WBC 1.4 L* (3.8-10.6) k/uL RBC 2.14 L (4.30-5.90) m/uL Hgb 6.7 L* (13.0-17.5) gm/dL Hct 20.0 L* (39.0-53.0) % RDW 25.1 H (11.5-15.5) % Plt Count 65 L (150-450) k/uL Neutrophils # 0.5 L (1.3-7.7) k/uL Neutrophils # (Manual) (1.3-7.7) k/uL Lymphocytes # 0.8 L (1.0-4.8) k/uL Lymphocytes # (Manual) (1.0-4.8) k/uL POC Glucose (mg/dL) 177 H (75-99) mg/dL Hemoglobin A1c 6.6 H (4.0-6.0) % Total Creatine Kinase (55-170) U/L Crossmatch 10/21/17 10/21/17 10/22/17 Range/Units 20:30 23:19 06:10 WBC 1.1 L* 2.6 L (3.8-10.6) k/uL RBC 1.97 L 2.36 L (4.30-5.90) m/uL Hgb 6.2 L* 7.4 L (13.0-17.5) gm/dL Hct 18.7 L* 22.9 L (39.0-53.0) % RDW 25.2 H 25.7 H (11.5-15.5) % Plt Count 57 L 65 L (150-450) k/uL Neutrophils # (1.3-7.7) k/uL Neutrophils # (Manual) 0.40 L (1.3-7.7) k/uL Lymphocytes # (1.0-4.8) k/uL Lymphocytes # (Manual) 0.62 L (1.0-4.8) k/uL POC Glucose (mg/dL) 145 H (75-99) mg/dL Hemoglobin A1c (4.0-6.0) % Total Creatine Kinase (55-170) U/L Crossmatch 10/22/17 Range/Units 08:05 WBC (3.8-10.6) k/uL RBC (4.30-5.90) m/uL Hgb (13.0-17.5) gm/dL Hct (39.0-53.0) % RDW (11.5-15.5) % Plt Count (150-450) k/uL Neutrophils # (1.3-7.7) k/uL Neutrophils # (Manual) (1.3-7.7) k/uL Lymphocytes # (1.0-4.8) k/uL Lymphocytes # (Manual) (1.0-4.8) k/uL POC Glucose (mg/dL) 157 H (75-99) mg/dL Hemoglobin A1c (4.0-6.0) % Total Creatine Kinase (55-170) U/L Crossmatch - Imaging and Cardiology CT scan - chest: report reviewed (reviewed after examining pt) Assessment and Plan (1) SOB (shortness of breath) Narrative/Plan: Pulmonary consulted, pt is on O2 currently with mild respiratory distress at rest. Current Visit: Yes Status: Acute Priority: High Code(s): R06.02 - SHORTNESS OF BREATH SNOMED Code(s): 692116946 (2) Pancytopenia Narrative/Plan: Pt has not had chemo since 08/2016. Possible causes for pancytopenia include weakened marrow from history of chemo exacerbated by infection vs. chemo induce blood disorder. Multiple labs have been ordered for evaluation, pending results. GCSF is being administered with a good response in WBC today, pt did receive 2 units of blood without the anticipated increase in Hgb, platelets are stable. CBC in AM. If pancytopenia persists possible bone marrow biopsy may indicated, will await complete lab work up until making that decision. Current Visit: Yes Status: Acute Priority: High Code(s): D61.818 - OTHER PANCYTOPENIA SNOMED Code(s): 355020633 (3) Mediastinal adenopathy Current Visit: Yes Status: Acute Priority: High Code(s): R59.0 - LOCALIZED ENLARGED LYMPH NODES SNOMED Code(s): 72182126 (4) Squamous cell lung cancer Narrative/Plan: Surveillance CT 07/2017 showed no evidence of disease. Current CT reveals increased number and size of medistinal adenopathy. Current recommendation would be to treat acute conditions with CT follow up study to re-evaluate. Pt has CT scheduled in early Nov as part of surveillance. If condition does not improve or progresses then biopsy may need to be considered. Current Visit: No Status: Chronic Priority: Medium Code(s): C34.90 - MALIGNANT NEOPLASM OF UNSP PART OF UNSP BRONCHUS OR LUNG SNOMED Code(s): 710060507 (5) Nicotine dependence Current Visit: Yes Status: Chronic Code(s): F17.200 - NICOTINE DEPENDENCE, UNSPECIFIED, UNCOMPLICATED SNOMED Code(s): 79491011
[2017-10-22] MEDS ORDERED: FUROSEMIDE 10 MG/ML 4 ML VIAL IV STA ×2 (11:14→11:52)
[2017-10-22 12:01] LABS: Glucose,Whole Blood 173 mg/dL (75-99)
[2017-10-22] MEDS: methylPREDNISolone SOD SUCCI 125 MG/2 ML VIAL IV SCH ×3 (12:07→23:41)
[2017-10-22 12:29] LABS: Protein, Total 6.2 g/dL (6.2-8.2)
[2017-10-22 13:54] LABS: Rheumatoid Factor <4 IU/mL (0-15)
[2017-10-22] MEDS: IPRATROPIUM-ALBUTEROL 3 ML NEB INHALATION SCH ×3 (14:54→19:22)
[2017-10-22 16:57] LABS: Glucose,Whole Blood 180 mg/dL (75-99)
[2017-10-22 17:23] LABS: Anisocytosis Moderate; HCT 25.4 % (39.0-53.0); HGB 8.7 gm/dL (13.0-17.5); MCH 31.4 pg (25.0-35.0); MCHC 34.1 g/dL (31.0-37.0); MCV 91.9 fL (80.0-100.0); Macrocytosis Slight; Mean Platelet Volume 7.8; Microcytosis Slight; Poikilocytosis Moderate; RBC 2.77 m/uL (4.30-5.90); RDW 23.2 % (11.5-15.5); WBC 3.5 k/uL (3.8-10.6)
[2017-10-22 17:55] LABS: Platelet Count 40 k/uL (150-450)
--- NOTE | 2017-10-22 18:45 | CONS ---
CONSULTATION Evan Aguilar is a 71-year-old male who presented to the ED at [facility] with increasing shortness of breath. This has been going on for 5-6 days. He had no fever or chills. He was bringing up a scant amount of sputum. He denied any melena or bloody stools. He subsequently was seen in the ED and was admitted for further evaluation and management. His past medical historyis positive for right-sided lung cancer, squamous cell, status post resection. He did receive adjuvant chemotherapy with good response. He continues to smoke at this time. SOCIAL HISTORY: Patient is a current smoker. Does not drink alcohol excessively. Family history is positive for coronary artery disease and myocardial infarction in his mother, cancer of the lung in his father. Medications prior to admission were: 1. Guaifenesin with dextromethorphan. 2. Metformin. 3. Flomax. 4. Rosuvastatin. 5. Pregabalin. 6. Potassium chloride. 7. Omeprazole. 8. Mexitil. 9. Lopid. 10.Celexa. 11.Carvedilol and. 12.Aspirin. Review of systems is positive for elevated blood sugars and diabetes, anemia, history of cardiac dysrhythmias and AICD placement, bilateral cataract surgery, testicular surgery. PHYSICAL EXAMINATION: He was lying in bed. He was quite short of breath. His respiratory rate is 22, pulse of 83, temperature 97.8, blood pressure 120/65, O2 saturation on 2L by nasal cannula was 100%. HEENT was pupils are equal. Mild prominence of the jugular veins. Chest revealed decreased breath sounds with prolonged expiration; expiratory wheeze, more on the right than left. Cardiovascular system reveals an S1, S2. No S3, no S4. Short systolic murmur is heard. Abdomen is soft. There is 2+ pedal edema. Initial labs reveal a white count of 1.4, hemoglobin of 6.7, platelet count of 65,000. Hemoglobin A1c of 6.6 with a glucose of 145. CT scan of the chest shows worsening right-sided mediastinal adenopathy, possible irregularity of the mucosa in the trachea just adjacent to the right mainstem bronchus, small right pleural effusion. Impression at this time is: 1. Dyspnea secondary to chronic obstructive pulmonary disease with acute exacerbation and also contributed by severe symptomatic anemia along with history of heart disease and cardiomyopathy. 2. Severe symptomatic anemia with pancytopenia. 3. History of ventricular arrhythmia, status post automatic implantable cardioverter- defibrillator placement. 4. Current smoker. 5. History of squamous cell cancer of the lung with possible recurrence. 6. Chronic right pleural effusion which has not worsened from recent CT scan. At this point in time from a pulmonary standpoint, would keep the patient in negative fluid balance, start him on IV steroids, bronchodilators, aerosolized steroids. He has received 2 units of packed cells. His hemoglobin is in the 7 range. Would transfuse him another unit of packed cells. Would keep him on GI prophylaxis. Would hold off on heparin because of his low hemoglobin at this time. He was counseled on the need to quit smoking. He may require further workup and possible bronchoscopy down the line for possible recurrence of his cancer. Depending on how he does, we shall make further changes to his care. He was counseled regarding his condition and this approach in the presence of his sister. MMODL / IJN: [id number] /
[2017-10-22] MEDS: BUDESONIDE 0.5 MG/2 ML NEBU INHALATION SCH (19:22)
[2017-10-22] MEDS: MONTELUKAST 10 MG TAB PO SCH (19:55)
[2017-10-22 20:02] LABS: Glucose,Whole Blood 270 mg/dL (75-99)
[2017-10-22] MEDS ORDERED: HEPARIN SODIUM,PORCINE 5,000 UNIT/ML 1 ML VIAL SQ SCH (21:00)
--- NOTE | 2017-10-23 05:27 | CONS ---
CONSULTATION DATE OF SERVICE: 10/22/2017 REASON FOR CONSULTATION: Infection. HISTORY OF PRESENT ILLNESS: The patient is a 71-year-old with a past medical history significant for lung cancer, status post lobectomy, coming to the ER at [facility] with chief complaints of increasing shortness of breath that has been getting worse for the last few weeks. However, has got worse to the point that patient ended up coming to the hospital. The patient denies any high-grade fever, rigors and chills. He did have very minimal cough, but not bringing up any sputum. No hemoptysis. No significant chest pain. No nausea, vomiting. No abdominal pain, no diarrhea. With these symptoms, the patient presented to the ER where the patient did have a chest x-ray which did show COPD with cardiomegaly, worsening right-sided pleural effusion. Subsequently a chest CT has been done this morning, which did show increase in size of linear markings of the right lung base. Underlying mass is not excluded. The patient has been admitted to the hospital with consult to the Oncology and Pulmonary and ID was consulted to rule out any infectious etiology. Currently the patient has not been on any antibiotics and the patient does have leukopenia on admission, but white count has slightly improved to 3.5 as of today. REVIEW OF SYSTEMS: CONSTITUTIONAL: Positive for weakness, but denies any high-grade fever. EYES: No complaint. ENT: No complaint. RESPIRATORY: As per HPI. CARDIOVASCULAR: No complaint. GENITOURINARY: No complaint. GASTROINTESTINAL: No complaint MUSCULOSKELETAL: No complaint. INTEGUMENTARY: No complaint. PSYCHOLOGICAL: No complaint. ENDOCRINE: No complaint. NEUROLOGICAL: No complaint. PAST MEDICAL HISTORY: Significant for squamous cell carcinoma of right lung, status post lobectomy and chemo. The patient also history of diabetes mellitus, gastroesophageal reflux disease, hyperlipidemia, hypertension, renal insufficiency. PAST SURGICAL HISTORY: AICD placement, robotic assisted right thoracoscopy, right upper lobectomy, mediastinal lymph node dissection, bilateral cataract surgery. SOCIAL HISTORY: Current everyday smoker. He has been smoking since the age of 17. No drinking or drug use. FAMILY HISTORY: Father of lung cancer in his 80s. Mother of [place]. ALLERGIES: No known drug allergies. MEDICATIONS: Medications include the patient is currently on Ambien, Flomax, Lyrica, Protonix , nicotine patch, filgrastim, Celexa, Coreg, Pulmicort, Lipitor, DuoNeb, Lopid. PHYSICAL EXAMINATION: On examination, blood pressure is 133/77 with a pulse of 86, temperature 97.9. He is 99% on 2 L nasal cannula. General description is an elderly male lying in bed in no distress. No tachypnea or accessory muscle of respiration use. HEENT examination shows pallor, no scleral icterus. Oral mucous membranes dry. No pharyngeal erythema or thrush NECK: Trachea central. No thyromegaly. LUNGS: Unlabored breathing, decreased breath sounds at the bases. No wheeze. HEART: S1, S2. Regular rate and rhythm. No added sounds. ABDOMEN: Soft, no tenderness. No guarding or rigidity. EXTREMITIES: No edema of feet. SKIN EXAMINATION: No rash or mass palpable. NEUROLOGICAL: Patient is awake, alert, oriented x3. Mood and affect normal. LABS: Hemoglobin 8.7, white count 3.5 with a BUN of 14, creatinine 0.80. Electrolytes have been normal. Liver enzymes are normal. No lactic acid has been done. Stool for occult blood was negative. CMV IgG antibodies was detected. IgM was nonreactive. No culture has been done. DIAGNOSTIC IMPRESSION AND PLAN: Patient admitted to the hospital with generalized weakness in a patient noticed to have pancytopenia in addition to the right-sided pleural effusion with a question of possible recurrence of his underlying lung mass. Clinically doubt any infectious etiology as the patient is currently not running any fever, he did have some leukopenia that responded to the filgrastim therapy. The patient is not running any fever and did not have significant cough or sputum production to be suspicious for pneumonia and no other clinical focus of infection. PLAN: 1. We will hold on any empiric antibiotic therapy at this point. 2. If the patient's spike any fever or significant change in the patient's clinical condition appropriate cultures will be obtained before starting him on any antibiotic therapy. Thank you for this consultation. Will follow this patient along with you. MMODL / IJN: [id number] / MTDD
[2017-10-23] MEDS: methylPREDNISolone SOD SUCCI 125 MG/2 ML VIAL IV SCH ×3 (05:35→17:31)
[2017-10-23] MEDS: IPRATROPIUM-ALBUTEROL 3 ML NEB INHALATION SCH ×4 (07:10→19:56)
[2017-10-23] MEDS: BUDESONIDE 0.5 MG/2 ML NEBU INHALATION SCH ×2 (07:10→19:56)
[2017-10-23 07:19] LABS: Glucose,Whole Blood 165 mg/dL (75-99)
[2017-10-23] MEDS: INSULIN ASPART 100 UNIT/ML 1 ML 10 ML VIAL SQ SCH ×4 (07:49→22:10)
[2017-10-23] MEDS: PREGABALIN 75 MG CAP PO SCH ×2 (07:49→20:35)
[2017-10-23] MEDS: NICOTINE 21MG/24HR PATCH TRANSDERM SCH (07:49)
[2017-10-23] MEDS: guaiFENesin-DM 600/30MG 1 EACH TAB.ER.12H PO SCH ×2 (07:50→20:35)
[2017-10-23] MEDS: GEMFIBROZIL 600 MG TAB PO SCH ×2 (07:50→17:30)
[2017-10-23] MEDS: metFORMIN 500 MG TAB PO SCH ×2 (07:50→20:35)
[2017-10-23] MEDS: PANTOPRAZOLE 40 MG TABLET PO SCH (07:50)
[2017-10-23] MEDS: CARVEDILOL 6.25 MG TAB PO SCH ×2 (07:50→20:36)
[2017-10-23] MEDS: MEXILETINE 150 MG CAP PO SCH (07:50)
[2017-10-23] MEDS: ATORVASTATIN 20 MG TAB PO SCH (07:50)
[2017-10-23] MEDS: CITALOPRAM HYDROBROMIDE 20 MG TAB PO SCH (07:51)
[2017-10-23] MEDS: TAMSULOSIN 0.4 MG CAP.ER.24H PO SCH (07:51)
[2017-10-23 08:43] LABS: Anisocytosis Marked; HCT 24.8 % (39.0-53.0); HGB 8.2 gm/dL (13.0-17.5); Hypochromasia Slight; MCH 31.5 pg (25.0-35.0); MCV 95.5 fL (80.0-100.0); Macrocytosis Moderate; Mean Platelet Volume 8.9; Microcytosis Slight; Poikilocytosis Slight; RBC 2.59 m/uL (4.30-5.90); RDW 24.6 % (11.5-15.5); WBC 3.7 k/uL (3.8-10.6)
[2017-10-23 08:45] LABS: Platelet Count 40 k/uL (150-450)
[2017-10-23 11:08] LABS: ANA Pattern Homogeneous; ANA Pattern 2 Nucleolar
[2017-10-23 11:42] LABS: Glucose,Whole Blood 159 mg/dL (75-99)
[2017-10-23] MEDS ORDERED: CALCIUM CARBONATE 500 MG CHEWABLE PO PRN (14:21)
[2017-10-23] MEDS: FILGRASTIM-SNDZ 300 MCG/0.5 ML SYRINGE SQ SCH (14:41)
--- NOTE | 2017-10-23 15:19 | P.PN ---
Subjective Progress Note Date: 10/23/17 Principal diagnosis: Acute exacerbation of COPD Patient seen and examined. Patient states his breathing is better today. He is complaining of heartburn and asking for some Tums or Rolaids. He has no other needs or complaints at this time. Objective - Vital Signs Vital signs: Vital Signs Temp 97.7 F 10/23/17 07:00 Pulse 88 10/23/17 11:43 Resp 18 10/23/17 07:00 BP 113/69 10/23/17 07:00 Pulse Ox 100 10/23/17 07:00 Intake & Output 10/22/17 10/23/17 10/23/17 18:59 06:59 18:59 Intake Total 310 540 Balance 310 540 Intake: Oral 540 Blood Product 310 Rc As-1 Unit 310 [id number] Other: Voiding Method Toilet Toilet Toilet # Voids 1 1 3 - Exam Gen.: Patient is alert and oriented 3, no acute distress, obese Cardiovascular: Regular rate and rhythm, S1/S2 Lungs: Diminished breath sounds bilaterally Abdomen: Soft nontender nondistended positive bowel sounds Extremities: 1+ edema - Labs CBC & Chem 7: 10/23/17 08:16 10/21/17 09:43 Labs: Abnormal Lab Results - Last 24 Hours (Table) 10/21/17 10/22/17 10/22/17 Range/Units 09:43 06:10 06:10 WBC (3.8-10.6) k/uL RBC (4.30-5.90) m/uL Hgb (13.0-17.5) gm/dL Hct (39.0-53.0) % RDW (11.5-15.5) % Plt Count (150-450) k/uL POC Glucose (mg/dL) (75-99) mg/dL Iron 268 H (65-175) ug/dL Iron Saturation 97.10 H (15.00-50.00) Ferritin 385.6 H (22.0-322.0) ng/mL RBC Folate 1,002 H (280 - 791) ng/mL KRISTA Screen POSITIVE H (NEGATIVE) CMV IgG Ab Reactive H (Non-Reactive) Crossmatch See Detail 10/22/17 10/22/17 10/22/17 Range/Units 16:40 16:55 20:00 WBC 3.5 L (3.8-10.6) k/uL RBC 2.77 L (4.30-5.90) m/uL Hgb 8.7 L (13.0-17.5) gm/dL Hct 25.4 L (39.0-53.0) % RDW 23.2 H (11.5-15.5) % Plt Count 40 L* (150-450) k/uL POC Glucose (mg/dL) 180 H 270 H (75-99) mg/dL Iron (65-175) ug/dL Iron Saturation (15.00-50.00) Ferritin (22.0-322.0) ng/mL RBC Folate (280 - 791) ng/mL KRISTA Screen (NEGATIVE) CMV IgG Ab (Non-Reactive) Crossmatch 10/23/17 10/23/17 10/23/17 Range/Units 07:18 08:16 11:40 WBC 3.7 L (3.8-10.6) k/uL RBC 2.59 L (4.30-5.90) m/uL Hgb 8.2 L (13.0-17.5) gm/dL Hct 24.8 L (39.0-53.0) % RDW 24.6 H (11.5-15.5) % Plt Count 40 L* (150-450) k/uL POC Glucose (mg/dL) 165 H 159 H (75-99) mg/dL Iron (65-175) ug/dL Iron Saturation (15.00-50.00) Ferritin (22.0-322.0) ng/mL RBC Folate (280 - 791) ng/mL KRISTA Screen (NEGATIVE) CMV IgG Ab (Non-Reactive) Crossmatch Assessment and Plan Assessment: Acute hypoxemia Acute exacerbation of COPD Symptomatic anemia Cardiomyopathy Pancytopenia Tobacco abuse History of squamous cell lung cancer, question recurrent Chronic right pleural effusion Mediastinal lymphadenopathy GERD Status post right thoracotomy and right upper lobectomy Diabetes mellitus type 2 Obesity O2 to maintain saturation greater than or equal to 90% Heme/onc recommendations appreciated Solu-Medrol taper Bronchodilators and Pulmicort Smoking cessation Monitor labs Singulair Repeat CT chest as an outpatient May need biopsy pending CT report results. Pulmonary hygiene and incentive spirometry Smoking cessation is highly recommended GI and DVT prophylaxis
[2017-10-23 15:47] LABS: Albumin 4.09 g/dL (3.80-4.90); Gamma Globulin 0.56 g/dL (0.70-1.50)
[2017-10-23 17:02] LABS: Glucose,Whole Blood 228 mg/dL (75-99)
[2017-10-23] MEDS: ZOLPIDEM 10 MG TAB PO PRN (20:35)
[2017-10-23] MEDS: MONTELUKAST 10 MG TAB PO SCH (20:36)
[2017-10-23 21:31] LABS: Glucose,Whole Blood 226 mg/dL (75-99)
[2017-10-23 23:39] LABS: Glucose,Whole Blood 233 mg/dL (75-99)
[2017-10-23] MEDS ORDERED: MORPHINE SULFATE 5 MG/ML SYRINGE IVP PRN (23:54)
[2017-10-24] MEDS: methylPREDNISolone SOD SUCCI 125 MG/2 ML VIAL IV SCH ×5 (00:10→23:05)
[2017-10-24] MEDS: MORPHINE SULFATE 5 MG/ML SYRINGE IVP PRN ×4 (00:29→12:58)
--- NOTE | 2017-10-24 01:09 | CT ---
ADDENDUM - Added by Liu Gaspar MD on 11/21/2017 12:02 AM (-08:00) Addendum: Clinical history: Fall tonight, evaluate for trauma. EXAM: CT Head Without Intravenous Contrast CLINICAL HISTORY: Reason: fall TECHNIQUE: Axial computed tomography images of the head/brain without intravenous contrast. CTDI is 1030.5 mGy and DLP is 341.6 mGy-cm. This CT exam was performed using one or more of the following dose reduction techniques: automated exposure control, adjustment of the mA and/or kV according to patient size, and/or use of iterative reconstruction technique. COMPARISON: No relevant prior studies available. FINDINGS: Brain: Scattered hypodense foci in the periventricular and subcortical white matter. Age-related cerebral atrophy. No hemorrhage. No edema. Ventricles: Unremarkable. No ventriculomegaly. Bones/joints: Unremarkable. No acute fracture. Soft tissues: Mild soft tissue swelling overlying the left posterior occiput. Sinuses: Unremarkable as visualized. No acute sinusitis. Mastoid air cells: Unremarkable as visualized. No mastoid effusion. IMPRESSION: No acute intracranial findings. Chronic microangiopathic ischemic changes in the white matter and age- related cerebral atrophy. EXAM: CT Cervical Spine Without Intravenous Contrast CLINICAL HISTORY: Reason: fall TECHNIQUE: Axial computed tomography images of the cervical spine without intravenous contrast. CTDI is 1030.5 mGy and DLP is 341.6 mGy-cm. This CT exam was performed using one or more of the following dose reduction techniques: automated exposure control, adjustment of the mA and/or kV according to patient size, and/or use of iterative reconstruction technique. COMPARISON: No relevant prior studies available. FINDINGS: Vertebrae: Multilevel cervical spondylosis and facet arthropathy. Osseous fusion between the C5 and C6 vertebral bodies. Straightening of the cervical spine. No acute fracture. Discs/spinal canal/neural foramina: No acute findings. No spinal canal stenosis. Soft tissues: Unremarkable. Lung apices: Unremarkable as visualized. Other findings: Nuchal ligament calcification. IMPRESSION: No acute fracture or subluxation. Moderate multilevel cervical spondylosis with fusion between the C5 and C6 vertebral bodies. Straightening of the cervical spine may be due to patient positioning versus muscle spasm.
--- NOTE | 2017-10-24 01:23 | XR ---
ADDENDUM - Added by Liu Gaspar MD on 11/21/2017 12:02 AM (-08:00) Addendum: Clinical history: Fall tonight, evaluate for trauma. EXAM: XR Left Hip With Pelvis When Performed, 1 View CLINICAL HISTORY: Reason: Fall TECHNIQUE: Frontal view of the left hip, with pelvis when performed. COMPARISON: No relevant prior studies available. FINDINGS: Bones/joints: Displaced left subtrochanteric fracture with apex lateral angulation. No dislocation. Soft tissues: Unremarkable. IMPRESSION: Displaced left subtrochanteric fracture with apex lateral angulation.
--- NOTE | 2017-10-24 01:25 | XR ---
EXAM: XR Left Humerus, 2 or More Views CLINICAL HISTORY: Reason: Fall TECHNIQUE: Frontal and lateral views of the left humerus. Single lateral view of the left elbow. COMPARISON: No relevant prior studies available. FINDINGS: Bones/joints: Degenerative changes at the acromioclavicular joint. No evidence of a fracture. No dislocation. Single lateral view of the left elbow without evidence of displaced fracture Soft tissues: Unremarkable. Other findings: Cardiac device projects over the left chest wall. IMPRESSION: No acute findings.
--- NOTE | 2017-10-24 02:53 | XR ---
ADDENDUM - Added by Liu Gaspar MD on 11/21/2017 12:03 AM (-08:00) Addendum: Clinical history: Left femur pain from fall. EXAM: XR Left Femur, 2 Views CLINICAL HISTORY: Reason: fall TECHNIQUE: Frontal and lateral views of the left femur. COMPARISON: No relevant prior studies available. FINDINGS: There is a displaced and angulated left subtrochanteric fracture. Fracture lucency extends into the intertrochanteric region. There is overlap of the major fracture fragments. Vascular calcifications. IMPRESSION: Displaced and angulated left subtrochanteric fracture with extension of the fracture lucency into the intertrochanteric region.
[2017-10-24 07:12] LABS: Glucose,Whole Blood 210 mg/dL (75-99)
[2017-10-24 07:22] LABS: Anisocytosis Marked; MCV 94.1 fL (80.0-100.0); Macrocytosis Slight; Mean Platelet Volume 8.5; Microcytosis Slight; RBC 2.13 m/uL (4.30-5.90); RDW 24.6 % (11.5-15.5); WBC 3.3 k/uL (3.8-10.6)
[2017-10-24 07:24] LABS: Platelet Count 24 k/uL (150-450)
[2017-10-24 07:27] LABS: HGB 6.8 gm/dL (13.0-17.5)
[2017-10-24] MEDS: IPRATROPIUM-ALBUTEROL 3 ML NEB INHALATION SCH ×4 (07:37→19:16)
[2017-10-24] MEDS: BUDESONIDE 0.5 MG/2 ML NEBU INHALATION SCH ×2 (07:37→19:16)
[2017-10-24 07:54] LABS: Band Neutrophils % 10 %; Lymphocytes # (M) 0.53 k/uL (1.0-4.8); Metamyelocytes # (M) 0.07 k/uL (0); Metamyelocytes % 2 %; Monocytes # (M) 0.13 k/uL (0-1.0); Neutrophils % (M) 68 %; Nucleated Red Blood Cells 0 /100 WBC (0-0); Total Cells Counted 100
[2017-10-24 07:55] LABS: Poikilocytosis (M) Present
[2017-10-24] MEDS: INSULIN ASPART 100 UNIT/ML 1 ML 10 ML VIAL SQ SCH ×4 (08:21→23:05)
[2017-10-24] MEDS: PREGABALIN 75 MG CAP PO SCH ×2 (08:21→23:05)
[2017-10-24] MEDS: NICOTINE 21MG/24HR PATCH TRANSDERM SCH (08:22)
[2017-10-24] MEDS: CARVEDILOL 6.25 MG TAB PO SCH ×2 (08:22→22:58)
[2017-10-24] MEDS: metFORMIN 500 MG TAB PO SCH ×2 (08:22→22:59)
[2017-10-24] MEDS: CITALOPRAM HYDROBROMIDE 20 MG TAB PO SCH (08:22)
[2017-10-24] MEDS: TAMSULOSIN 0.4 MG CAP.ER.24H PO SCH (08:23)
[2017-10-24] MEDS: GEMFIBROZIL 600 MG TAB PO SCH ×3 (08:23→22:58)
[2017-10-24] MEDS: PANTOPRAZOLE 40 MG TABLET PO SCH (08:23)
[2017-10-24] MEDS: ATORVASTATIN 20 MG TAB PO SCH (08:23)
[2017-10-24] MEDS: guaiFENesin-DM 600/30MG 1 EACH TAB.ER.12H PO SCH ×2 (08:23→22:59)
[2017-10-24] MEDS: MEXILETINE 150 MG CAP PO SCH (08:23)
--- NOTE | 2017-10-24 10:48 | P.CNOR ---
History of Present Illness - [facility] Consult date: 10/24/17 Requesting physician: Kolby Lau Consult reason: fracture History of present illness: Patient is a 71 yo male seen at bedside this morning for consultation of left hip fracture after a fall last evening. He has been an inpatient for other multiple medical problems including anemia and SOB. He has left hip pain as expected. he denies numbness, tingling or calf pain. He has no other complaints currently. Review of Systems All systems: negative Constitutional: Denies chills, Denies fever Eyes: denies blurred vision, denies pain Ears, nose, mouth and throat: Denies headache, Denies sore throat Cardiovascular: Denies chest pain, Denies shortness of breath Respiratory: Denies cough Gastrointestinal: Denies abdominal pain, Denies diarrhea, Denies nausea, Denies vomiting Musculoskeletal: Denies myalgias Integumentary: Denies pruritus, Denies rash Neurological: Denies numbness, Denies weakness Psychiatric: Denies anxiety, Denies depression Endocrine: Denies fatigue, Denies weight change Past Medical History Past Medical History: Cancer, Diabetes Mellitus, GERD/Reflux, Hyperlipidemia, Hypertension, Renal Disease Additional Past Medical History / Comment(s): R sided LUNG CA, cardiomyopathy with AICD, STATES WAS TOLD HAD KIDNEY STONES IN PAST, FREQUENT SINUSITIS, IDDM diagnosed within the past year, History of Any Multi-Drug Resistant Organisms: None Reported Past Surgical History: AICD, Orthopedic Surgery Additional Past Surgical History / Comment(s): 06/04/16 Robotic assisted R thoracoscopy, R upper lobectomy, mediastinal lymph node disection, cryoablation intercostal nerves 3-7. Other surgical hx: AICD, DFT, RT SHOULDER SX for dislocation, AICHA CATARACTS, bilateral lasik eye surgery, testicular surgery, Past Anesthesia/Blood Transfusion Reactions: No Reported Reaction Type of Cardiac Device: AICD Device Placement Date:: 2005 Liquidations [employer] Past Psychological History: Anxiety Additional Psychological History / Comment(s): Pt currently resides with son. He is independent. He drives. Smoking Status: Current every day smoker Past Alcohol Use History: None Reported Additional Past Alcohol Use History / Comment(s): SMOKES 1 PPD SINCE AGE OF 17 OR YOUNGER Past Drug Use History: None Reported - Past Family History Father Family Medical History: Cancer Additional Family Medical History / Comment(s): Father of lung cancer in his 80's Mother Family Medical History: Myocardial Infarction ([place]) Additional Family Medical History / Comment(s): Mother of [place] in her 80's Medications and Allergies Home Medications Medication Instructions Recorded Confirmed Type Aspirin [Adult Low Dose Aspirin EC] 81 mg PO DAILY 01/06/16 10/21/17 History Carvedilol 6.25 mg PO BID 01/06/16 10/21/17 History Citalopram Hydrobromide [CeleXA] 40 mg PO DAILY 10/21/17 10/21/17 History Gemfibrozil [Lopid] 600 mg PO AC-BID 10/21/17 10/21/17 History Mexiletine [Mexitil] 150 mg PO DAILY 10/21/17 10/21/17 History Omeprazole 40 mg PO DAILY 10/21/17 10/21/17 History Potassium Chloride ER [K-Dur 10] 10 meq PO DAILY 10/21/17 10/21/17 History Pregabalin [Lyrica] 75 mg PO BID 10/21/17 10/21/17 History Rosuvastatin [Crestor] 10 mg PO DAILY 10/21/17 10/21/17 History Saw [place] 450mg 900 mg PO BID 10/21/17 10/21/17 History Tamsulosin [Flomax] 0.4 mg PO DAILY 10/21/17 10/21/17 History guaiFENesin-DM 600/30MG [Mucinex 1 each PO Q12HR 10/21/17 10/21/17 History Dm] metFORMIN HCL 1,000 mg PO BID 10/21/17 10/21/17 History Allergies Allergy/AdvReac Type Severity Reaction Status Date / Time No Known Allergies Allergy Verified 10/21/17 10:39 Physical Examination Inspection of the left shoulder shows a shortened, externally rotated leg. There are no open wounds or lacerations. He is tender at the left hip. Range of motion of the left hip is not tested due to the fracture. Neurovascular status is intact with motor and sensation throughout the left lower extremity.calf is soft and nontender. 2+ dorsalis pedis pulse and less than 2 second capillary refills present. Results x-ray of the left hip and femur show a mildly angulated and displaced subtrochanteric/peritrochanteric hip fracture. Remainder of the femur is benign. - Labs Labs: Abnormal Lab Results - Last 24 Hours (Table) 10/21/17 10/22/17 10/23/17 Range/Units 09:43 06:10 11:40 WBC (3.8-10.6) k/uL RBC (4.30-5.90) m/uL Hgb (13.0-17.5) gm/dL Hct (39.0-53.0) % RDW (11.5-15.5) % Plt Count (150-450) k/uL Lymphocytes # (Manual) (1.0-4.8) k/uL Metamyelocytes # (Man) (0) k/uL POC Glucose (mg/dL) 159 H (75-99) mg/dL Gamma Globulins 0.56 L (0.70-1.50) g/dL Crossmatch See Detail 10/23/17 10/23/17 10/23/17 Range/Units 16:57 21:30 23:26 WBC (3.8-10.6) k/uL RBC (4.30-5.90) m/uL Hgb (13.0-17.5) gm/dL Hct (39.0-53.0) % RDW (11.5-15.5) % Plt Count (150-450) k/uL Lymphocytes # (Manual) (1.0-4.8) k/uL Metamyelocytes # (Man) (0) k/uL POC Glucose (mg/dL) 228 H 226 H 233 H (75-99) mg/dL Gamma Globulins (0.70-1.50) g/dL Crossmatch 10/24/17 10/24/17 Range/Units 06:37 07:11 WBC 3.3 L (3.8-10.6) k/uL RBC 2.13 L (4.30-5.90) m/uL Hgb 6.8 L* (13.0-17.5) gm/dL Hct 20.0 L* (39.0-53.0) % RDW 24.6 H (11.5-15.5) % Plt Count 24 L* (150-450) k/uL Lymphocytes # (Manual) 0.53 L (1.0-4.8) k/uL Metamyelocytes # (Man) 0.07 H (0) k/uL POC Glucose (mg/dL) 210 H (75-99) mg/dL Gamma Globulins (0.70-1.50) g/dL Crossmatch H & H 10/21/17 10/21/17 10/21/17 Range/Units 09:43 17:14 23:19 Hgb 6.3 L* 6.7 L* 6.2 L* (13.0-17.5) gm/dL Hct 18.7 L* 20.0 L* 18.7 L* (39.0-53.0) % 10/22/17 10/22/17 10/23/17 Range/Units 06:10 16:40 08:16 Hgb 7.4 L 8.7 L 8.2 L (13.0-17.5) gm/dL Hct 22.9 L 25.4 L 24.8 L (39.0-53.0) % 10/24/17 Range/Units 06:37 Hgb 6.8 L* (13.0-17.5) gm/dL Hct 20.0 L* (39.0-53.0) % Coagulation 10/21/17 Range/Units 09:43 INR 1.2 H (<1.2) Result Diagrams: 10/24/17 06:37 10/21/17 09:43 Assessment and Plan (1) Closed left hip fracture Narrative/Plan: The patient has been placed nothing by mouth. He'll need surgical repair and fixation of the left subtrochanteric femur fracture. We have requested preoperative clearance. a unit of blood has been ordered already due to his low hemoglobin. Plan will be to proceed with long gamma nail insertion with intramedullary hip screw possibly this afternoon if he is cleared by medicine. He will need postoperative placement. We will continue to follow and make further recommendations as appropriate. Current Visit: Yes Status: Acute Priority: Medium Code(s): S72.002A - FRACTURE OF UNSP PART OF NECK OF LEFT FEMUR, INIT SNOMED Code(s): 927420271 Time with Patient: Less than 30
[2017-10-24 11:46] LABS: Glucose,Whole Blood 172 mg/dL (75-99)
--- NOTE | 2017-10-24 12:11 | PN ---
PROGRESS NOTE DATE OF SERVICE: 10/24/2017 HISTORY OF PRESENT ILLNESS: Patient is a 71-year-old male who initially was admitted with acute hypoxia with acute exacerbation of COPD and symptomatic anemia. He does have a history of squamous cell lung cancer and has problems with chronic right pleural effusion. Last evening, patient had episode where he had fallen. He had multiple x-rays done and patient was found to have left subtrochanteric femur fracture with plans for this to be repaired today. Patient was also noted to have hemoglobin at 6.8 and presently will be getting platelets and is having blood transfused. Most likely will require additional transfusion of blood and platelets, possibly during and after surgery. Patient is high risk for any surgical complications due to his comorbidities and will need to be monitored closely. Patient has considerable pain at this time. He has been sedated and has been n.p.o. for preparation for surgery. He appears in no acute respiratory distress at this time. PHYSICAL EXAMINATION: His vital signs show temperature of 97.7, heart rate 81, respiratory rate 18, blood pressure is 115/68, oxygen saturation is 99% on 3 L. LABS: WBCs are 3.3, hemoglobin 6.8, hematocrit 20, platelets are 24, glucose was 210. Femur x-ray is showing displaced and angulated left subtrochanteric fracture with extension of fracture lucency into the intertrochanteric region. Humerus x-ray showed no acute findings and CT of the head showed no acute intracranial findings with age- related cerebral atrophy and chronic micro angiopathic ischemic changes in the white matter. GENERAL: He is a 71-year-old male who appears in no acute respiratory distress at this time. HEENT: Mucous membranes are dry. Pupils reactive. Neck is short, supple, thick. Lungs sounds are diminished throughout. CARDIOVASCULAR: S1, S2 is heard, regular abdomen soft. Bowel sounds heard. Extremities with 1+ edema. Left leg is rotated out. NEUROLOGIC: He is sleeping, easily awakened. IMPRESSION: 1. Left subtrochanteric femur fracture from a fall. 2. Anemia, where patient is getting blood. 3. Pancytopenia, where patient will be getting platelets. 4. Acute hypoxia on admission. 5. Acute exacerbation of chronic obstructive pulmonary disease. 6. Symptomatic anemia. 7. Cardiomyopathy. 8. History of tobacco abuse. 9. History of squamous cell lung cancer, uncertain of recurrent. 10.Chronic right pleural effusion. 11.Mediastinal lymphadenopathy. 12.Gastroesophageal reflux disease. 13.Diabetes mellitus type 2. 14.History of status post right thoracotomy with right upper lobectomy. RECOMMENDATIONS: Are for patient to continue with oxygen to keep sats 90% or better. Continue with blood transfusion and platelets as ordered. Monitor his labs closely. Continue with medications as ordered. Continue with smoking cessation. Continue with pulmonary hygiene. Continue with GI and DVT prophylaxis. Patient is high risk for surgery, but patient still requires surgical intervention. He will need to be monitored closely and be assured that he has oxygen, blood transfusions and nebulizer treatments as needed. MMODL / IJN: [id number] /
[2017-10-24] MEDS: CYANOCOBALAMIN 1,000 MCG/ML 1 ML VIAL IM SCH (12:14)
[2017-10-24] MEDS: FILGRASTIM-SNDZ 300 MCG/0.5 ML SYRINGE SQ SCH (13:57)
[2017-10-24] MEDS ORDERED: ceFAZolin IN SWFI 2 GM/20 ML SYRINGE IVP STA (14:49)
[2017-10-24 15:25] LABS: Glucose,Whole Blood 171 mg/dL (75-99)
[2017-10-24] MEDS ORDERED: LACTATED RINGERS 1,000 ML IV ONE ×2 (15:35→18:59)
[2017-10-24] MEDS ORDERED: LIDOCAINE 1% 20 ML VIAL (10MG/ML) FOR IV START INTRADERMA ONE (15:40)
[2017-10-24] MEDS ORDERED: ONDANSETRON 4 MG/2 ML VIAL IVP ONE (15:41)
--- NOTE | 2017-10-24 17:32 | P.PN ---
Subjective Progress Note Date: 10/24/17 Principal diagnosis: SHAHID, pancytopenia, Hx NSCLC Patient seen today in follow-up. Patient fell last night and fractured his left femur, surgery scheduled for later today. Patient states pain in the hip but, denies numbness or tingling in the leg. Pt continues to generally feel weak, feels his breathing is a little better, he can lay flat more comfortably. Appetite continues to be poor, denies fever, chills, vomiting, abd pain, diarrhea, bleeding. Objective - Vital Signs Vital signs: Vital Signs Temp 97.9 F 10/24/17 15:22 Pulse 94 10/24/17 15:22 Resp 20 10/24/17 15:22 BP 137/69 10/24/17 15:22 Pulse Ox 99 10/24/17 15:22 Intake & Output 10/23/17 10/24/17 10/24/17 18:59 06:59 18:59 Intake Total 620 Output Total 1500 Balance -880 Intake: Blood Product 620 Rc As-1 Unit 310 [id number] Output: Urine 1500 Other: Voiding Method Toilet Toilet Urinal # Voids 3 1 - Constitutional General appearance: Present: average body habitus, cooperative, no acute distress - Respiratory Respiratory: bilateral: CTA - Cardiovascular Heart sounds: normal: S1, S2 - Peripheral edema leg Peripheral Edema: right: None, left: Trace - Peripheral pulses dorsalis pedis Peripheral Pulses: bilateral: Normal - Gastrointestinal General gastrointestinal: Present: normal bowel sounds, soft - Integumentary Integumentary: Present: pale - Neurologic Neurologic: Present: CNII-XII intact - Musculoskeletal Musculoskeletal: Present: generalized weakness, strength equal bilaterally - Psychiatric Psychiatric: Present: A&O x's 3, appropriate affect, intact judgment & insight - Labs CBC & Chem 7: 10/24/17 06:37 10/21/17 09:43 Labs: Abnormal Lab Results - Last 24 Hours (Table) 10/21/17 10/23/17 10/23/17 Range/Units 09:43 21:30 23:26 WBC (3.8-10.6) k/uL RBC (4.30-5.90) m/uL Hgb (13.0-17.5) gm/dL Hct (39.0-53.0) % RDW (11.5-15.5) % Plt Count (150-450) k/uL Lymphocytes # (Manual) (1.0-4.8) k/uL Metamyelocytes # (Man) (0) k/uL POC Glucose (mg/dL) 226 H 233 H (75-99) mg/dL Crossmatch See Detail 10/24/17 10/24/17 10/24/17 Range/Units 06:37 07:11 11:45 WBC 3.3 L (3.8-10.6) k/uL RBC 2.13 L (4.30-5.90) m/uL Hgb 6.8 L* (13.0-17.5) gm/dL Hct 20.0 L* (39.0-53.0) % RDW 24.6 H (11.5-15.5) % Plt Count 24 L* (150-450) k/uL Lymphocytes # (Manual) 0.53 L (1.0-4.8) k/uL Metamyelocytes # (Man) 0.07 H (0) k/uL POC Glucose (mg/dL) 210 H 172 H (75-99) mg/dL Crossmatch 10/24/17 Range/Units 15:01 WBC (3.8-10.6) k/uL RBC (4.30-5.90) m/uL Hgb (13.0-17.5) gm/dL Hct (39.0-53.0) % RDW (11.5-15.5) % Plt Count (150-450) k/uL Lymphocytes # (Manual) (1.0-4.8) k/uL Metamyelocytes # (Man) (0) k/uL POC Glucose (mg/dL) 171 H (75-99) mg/dL Crossmatch Assessment and Plan (1) SOB (shortness of breath) Narrative/Plan: Severe anemia is likely contributing, Pulmonary following, pt is on O2 and resp treatments. 1 unit PRBCs ordered. Current Visit: Yes Status: Acute Priority: High Code(s): R06.02 - SHORTNESS OF BREATH SNOMED Code(s): 989257764 (2) Pancytopenia Narrative/Plan: Pt counts not improving. Even with GCSF WBC is not recovering adequately. There was a concern for marrow damage from history of chemo, plan was then to do bone marrow. This will be postponed temporarily while pt has femur repair. CBC will be monitored, supportive transfusions as needed, cont GCSF. Current Visit: Yes Status: Acute Priority: High Code(s): D61.818 - OTHER PANCYTOPENIA SNOMED Code(s): 150585719 (3) Mediastinal adenopathy Current Visit: Yes Status: Acute Priority: High Code(s): R59.0 - LOCALIZED ENLARGED LYMPH NODES SNOMED Code(s): 69665735 (4) Squamous cell lung cancer Current Visit: No Status: Chronic Priority: Medium Code(s): C34.90 - MALIGNANT NEOPLASM OF UNSP PART OF UNSP BRONCHUS OR LUNG SNOMED Code(s): 088498700 (5) Nicotine dependence Current Visit: Yes Status: Chronic Code(s): F17.200 - NICOTINE DEPENDENCE, UNSPECIFIED, UNCOMPLICATED SNOMED Code(s): 13099744 (6) Closed left hip fracture Narrative/Plan: Pt needs surgical repair. Platelets ordered to be given prior to surgery for thrombocytopenia, CBC in AM. Current Visit: Yes Status: Acute Priority: Medium Code(s): S72.002A - FRACTURE OF UNSP PART OF NECK OF LEFT FEMUR, INIT SNOMED Code(s): 754174407
[2017-10-24] MEDS ORDERED: SUCCINYLCHOLINE CHLORIDE 100 MG/5 ML SYR IV ONE (17:35)
[2017-10-24] MEDS ORDERED: ETOMIDATE 2 MG/ML 10 ML VIAL ONE (17:35)
[2017-10-24] MEDS ORDERED: LIDOCAINE 1% INJ 10MG/ML (20 ML MDV) ONE (17:35)
[2017-10-24] MEDS ORDERED: PHENYLEPHRINE-0.9% NACL SYG 1 MG/10 ML SYRINGE ONE (17:35)
[2017-10-24] MEDS ORDERED: KETAMINE 10 MG/ML 20 ML VIAL ONE (17:35)
[2017-10-24] MEDS ORDERED: fentaNYL (PF) 50 MCG/ML 2 ML AMP ONE (17:35)
[2017-10-24] MEDS ORDERED: MIDAZOLAM 2 MG/2 ML VIAL ONE (17:35)
[2017-10-24] MEDS ORDERED: ceFAZolin 1,000 MG in SODIUM CHLORIDE 0.9% 1,000 ML IRRIGATION ONE (17:35)
[2017-10-24] MEDS ORDERED: ACETAMINOPHEN IV (For NPO) 1,000 MG/100 ML VIAL ONE (17:35)
[2017-10-24 20:59] LABS: Glucose,Whole Blood 237 mg/dL (75-99)
[2017-10-24] MEDS ORDERED: MAGNESIUM HYDROXIDE 2,400 MG/10 ML CUP PO PRN (22:31)
[2017-10-24] MEDS ORDERED: NALOXONE 0.4 MG/ML 1 ML VIAL IV PRN (22:31)
[2017-10-24] MEDS ORDERED: HYDROmorphone 0.5 MG/0.5 ML SYRINGE IVP PRN ×2 (22:31)
[2017-10-24] MEDS ORDERED: HYDROcodone/APAP 5-325MG 1 EACH TAB PO PRN (22:31)
[2017-10-24] MEDS: MONTELUKAST 10 MG TAB PO SCH (22:59)
[2017-10-24] MEDS: SODIUM CHLORIDE 0.45% 1,000 ML IV SCH (23:00)
--- NOTE | 2017-10-24 23:15 | FL ---
EXAMINATION TYPE: FL guidance operating room, XR femur LT DATE OF EXAM: 10/24/2017 CLINICAL HISTORY: Left femur fracture. TECHNIQUE: Fluoroscopy. 2 views left femur COMPARISON: Left femur x-ray earlier today. FINDINGS: Fluoroscopic guidance was provided during left hip open reduction and internal fixation pr ocedure performed by Dr. Lau. A total of 2 minutes 12 seconds of fluoroscopic time was utilized d uring the procedure and 6 spot images was acquired. Images acquired show placement of intramedullary madelyn with large femoral neck fixating screw and 2 dis yoana transverse fixating screws through subtrochanteric fracture of left proximal femur. Improved alig nment is seen on intraoperative images acquired. IMPRESSION: As Above.
[2017-10-24 23:19] LABS: Anisocytosis Moderate; HCT 20.6 % (39.0-53.0); MCH 31.1 pg (25.0-35.0); MCHC 33.8 g/dL (31.0-37.0); MCV 92.1 fL (80.0-100.0); Macrocytosis Slight; Mean Platelet Volume 13.7; Microcytosis Slight; RBC 2.24 m/uL (4.30-5.90); RDW 23.5 % (11.5-15.5); WBC 2.2 k/uL (3.8-10.6)
[2017-10-24 23:38] LABS: Platelet Count 38 k/uL (150-450)
[2017-10-24] MEDS: ceFAZolin IN SWFI 2 GM/20 ML SYRINGE IVP SCH (23:49)
[2017-10-25 00:03] LABS: Band Neutrophils % 24 %; Eosinophils # (M) 0.02 k/uL (0-0.7); Large Platelets Present; Lymphocytes # (M) 0.66 k/uL (1.0-4.8); Metamyelocytes % 9 %; Monocytes # (M) 0.13 k/uL (0-1.0); Myelocytes # (M) 0.02 k/uL (0); Myelocytes % 1 %; Neutrophils % (M) 31 %; Nucleated Red Blood Cells 1 /100 WBC (0-0); Polychromasia Present; Total Cells Counted 200
[2017-10-25 00:05] LABS: Toxic Granulation Present
[2017-10-25 00:06] LABS: Poikilocytosis (M) Present
[2017-10-25] MEDS: HYDROcodone/APAP 5-325MG 1 EACH TAB PO PRN ×3 (02:40→15:29)
[2017-10-25] MEDS: methylPREDNISolone SOD SUCCI 125 MG/2 ML VIAL IV SCH ×4 (05:20→23:42)
[2017-10-25 05:23] LABS: Anisocytosis Moderate; MCH 31.1 pg (25.0-35.0); MCHC 33.1 g/dL (31.0-37.0); MCV 93.9 fL (80.0-100.0); Macrocytosis Slight; Mean Platelet Volume 8.2; Poikilocytosis Slight; RBC 2.11 m/uL (4.30-5.90)
[2017-10-25 05:27] LABS: Anion Gap 12 mmol/L; Blood Urea Nitrogen 39 mg/dL (9-20); Calcium 8.2 mg/dL (8.4-10.2); Carbon Dioxide 21 mmol/L (22-30); Chloride 95 mmol/L (98-107); Glucose 198 mg/dL (74-99); Magnesium 1.9 mg/dL (1.6-2.3); Phosphorus 4.2 mg/dL (2.5-4.5); Potassium 4.5 mmol/L (3.5-5.1); Sodium 128 mmol/L (137-145)
[2017-10-25 05:34] LABS: HCT 19.8 % (39.0-53.0); HGB 6.6 gm/dL (13.0-17.5); Platelet Count 25 k/uL (150-450); WBC 1.8 k/uL (3.8-10.6)
[2017-10-25] MEDS ORDERED: Magnesium Replacement Protocol 1 EACH MISC MISCELLANE PRN (05:37)
[2017-10-25] MEDS: MAGNESIUM SULFATE-D5W PMX 1 GM in DEXTROSE/WATER 1 100ML.BAG IVPB SCH ×2 (06:16→09:37)
[2017-10-25 06:51] LABS: Parvovirus B-19 IgG Antibodies 1.7 INDEX (<0.9); Parvovirus B-19 IgM Antibodies 0.1 INDEX (<0.9)
--- NOTE | 2017-10-25 07:08 | XR ---
EXAMINATION TYPE: XR chest 1V DATE OF EXAM: 10/25/2017 CLINICAL HISTORY: Difficulty breathing progress study. TECHNIQUE: 2 AP portable semiupright views of the chest are obtained. COMPARISON: Chest x-ray from [address] chest from 3 days earlier. FINDINGS: There is persistent cardiomegaly with dual lead pacemaker/AICD. There is persistent right basilar scarring and pleural thickening/loculated fluid with right basilar volume loss. Left lung is clear. Osseous structures are intact. IMPRESSION: Overall stable findings, cardiomegaly with right-sided loculated pleural fluid and thic kening and right basilar scarring with volume loss redemonstrated. No acute infiltrate is seen.
[2017-10-25] MEDS: IPRATROPIUM-ALBUTEROL 3 ML NEB INHALATION SCH ×4 (07:32→19:26)
[2017-10-25] MEDS: BUDESONIDE 0.5 MG/2 ML NEBU INHALATION SCH ×2 (07:32→19:26)
[2017-10-25 08:13] LABS: Band Neutrophils % 14 %; Lymphocytes # (M) 0.43 k/uL (1.0-4.8); Metamyelocytes # (M) 0.05 k/uL (0); Metamyelocytes % 3 %; Monocytes # (M) 0.29 k/uL (0-1.0); Myelocytes # (M) 0.05 k/uL (0); Myelocytes % 3 %; Neutrophils % (M) 40 %; Nucleated Red Blood Cells 0 /100 WBC (0-0); Total Cells Counted 100; Toxic Granulation Present
[2017-10-25] MEDS: INSULIN ASPART 100 UNIT/ML 1 ML 10 ML VIAL SQ SCH ×4 (09:37→20:17)
[2017-10-25] MEDS: PANTOPRAZOLE 40 MG TABLET PO SCH (09:38)
[2017-10-25] MEDS: ATORVASTATIN 20 MG TAB PO SCH (09:38)
[2017-10-25] MEDS: ceFAZolin IN SWFI 2 GM/20 ML SYRINGE IVP SCH (09:38)
[2017-10-25] MEDS: CYANOCOBALAMIN 1,000 MCG/ML 1 ML VIAL IM SCH (09:39)
[2017-10-25] MEDS: CARVEDILOL 6.25 MG TAB PO SCH ×2 (09:39→20:22)
[2017-10-25] MEDS: guaiFENesin-DM 600/30MG 1 EACH TAB.ER.12H PO SCH ×2 (09:39→20:22)
[2017-10-25] MEDS: CITALOPRAM HYDROBROMIDE 20 MG TAB PO SCH (09:39)
[2017-10-25] MEDS: metFORMIN 500 MG TAB PO SCH ×2 (09:40→20:22)
[2017-10-25] MEDS: MEXILETINE 150 MG CAP PO SCH (09:40)
[2017-10-25] MEDS: NICOTINE 21MG/24HR PATCH TRANSDERM SCH (09:48)
[2017-10-25] MEDS: PREGABALIN 75 MG CAP PO SCH ×2 (09:49→20:22)
--- NOTE | 2017-10-25 10:51 | PN ---
PROGRESS NOTE DATE OF SERVICE: 10/25/2017 Patient is a 71-year-old male who is seen in the ICU with nursing at bedside. Patient is awake, alert, pale. Pain is controlled as long as he does not move. Patient is afebrile, hemodynamically stable, status post repair of left hip fracture last night. Patient's hemoglobin and platelets are low this morning and will be replaced. Hematology-Oncology is following patient as well. PHYSICAL EXAM: Vital signs, temp is 97.5, heart rate is 92, respiratory rate is 16, blood pressure is 104/72, O2 sats 99% on room air. HEENT: Head is normocephalic, atraumatic. Neck is supple. Trachea is midline. LUNGS: Decreased. No clear rales or wheezes. HEART: S1, S2 are heard. Not tachycardic. Abdomen is soft. Bowel sounds are positive. EXTREMITIES: With 1+ edema bilaterally. Dressing to that left hip is dry and intact. Patient's skin color is pale. LABS: White count is 1.8, hemoglobin is 6.6, hematocrit 19.8 with 25,000 platelets. Sodium is 128, potassium is 4.5, chloride is 95, CO2 is 21, anion gap is 12, BUN is 39, creatinine is 1.0, glucose is 198, calcium is 8.2, phosphorus 4.2, magnesium is 1.9. IMAGING: This morning's chest x-ray, overall stable findings. Cardiomegaly with right-sided loculated pleural fluid and thickening and right basilar scarring with volume loss re- demonstrated. No acute infiltrate is seen. IMPRESSION: 1. Left subtrochanteric femur fracture, status post IM nailing. 2. Pancytopenia. 3. Acute hypoxia on admission, which has resolved. 4. Acute exacerbation of chronic obstructive pulmonary disease, improving. 5. Symptomatic anemia. 6. Cardiomyopathy. 7. History of tobacco abuse. 8. History of squamous cell lung cancer, uncertain of reoccurrence. 9. Chronic right pleural effusion. 10.Mediastinal lymphadenopathy. 11.Gastroesophageal reflux disease. 12.Diabetes mellitus type 2. 13.History of right thoracotomy with right upper lobectomy. PLAN: Continue current medications which have been reviewed. Patient is going to receive platelets and PRBCs per Hematology-Oncology. Continue Orthopedic Surgery recommendations. Continue pulmonary hygiene. Continue GI and DVT prophylaxis and we will follow patient closely with you making further changes as necessary. MMODL / IJN: [id number] /
[2017-10-25] MEDS: TAMSULOSIN 0.4 MG CAP.ER.24H PO SCH (11:16)
[2017-10-25] MEDS: FILGRASTIM-SNDZ 300 MCG/0.5 ML SYRINGE SQ SCH (11:53)
[2017-10-25] MEDS: MULTIVITAMINS, THERA 1 EACH TAB PO SCH (11:54)
[2017-10-25 12:08] LABS: Glucose,Whole Blood 311 mg/dL (75-99)
[2017-10-25 12:17] VITALS: BMI 29.5
--- NOTE | 2017-10-25 14:07 | P.GSCN ---
History of Present Illness Consult date: 10/25/17 History of present illness: 71-year-old male presented to the emergency department with complaints of shortness of breath. He is known to have a history of lung cancer, squamous cell. He did have a right-sided upper lobectomy and had chemotherapy secondary to this. He does continue to smoke. He was found to have anemia and his blood work. General surgery consultation secondary to possible endoscopy due to anemia. During his admission the patient did have a fall and fracture of his left hip that was repaired by orthopedics. The patient is currently in the ICU. He was receiving a unit of packed red blood cells during my examination. He states his last colonoscopy was approximately 10 years ago and had no significant finding. He denies any abdominal pain. He denies any blood in his bowel movements. He denies any nausea or vomiting. He denies any hematemesis. At this time he has no additional complaints. The patient has been found to have pancytopenia and hematology oncology is on board for possible bone marrow biopsy. This is been placed on hold secondary to the recent fracture. Past Medical History Past Medical History: Cancer, Diabetes Mellitus, GERD/Reflux, Hyperlipidemia, Hypertension, Renal Disease Additional Past Medical History / Comment(s): R sided LUNG CA, cardiomyopathy with AICD, STATES WAS TOLD HAD KIDNEY STONES IN PAST, FREQUENT SINUSITIS, IDDM diagnosed within the past year, History of Any Multi-Drug Resistant Organisms: None Reported Past Surgical History: AICD, Orthopedic Surgery Additional Past Surgical History / Comment(s): 06/04/16 Robotic assisted R thoracoscopy, R upper lobectomy, mediastinal lymph node disection, cryoablation intercostal nerves 3-7. Other surgical hx: AICD, DFT, RT SHOULDER SX for dislocation, AICHA CATARACTS, bilateral lasik eye surgery, testicular surgery, Past Anesthesia/Blood Transfusion Reactions: No Reported Reaction Type of Cardiac Device: AICD Device Placement Date:: 2005 [place] Past Psychological History: Anxiety Additional Psychological History / Comment(s): Pt currently resides with son. He is independent. He drives. Smoking Status: Current every day smoker Past Alcohol Use History: None Reported Additional Past Alcohol Use History / Comment(s): SMOKES 1 PPD SINCE AGE OF 17 OR YOUNGER Past Drug Use History: None Reported - Past Family History Father Family Medical History: Cancer Additional Family Medical History / Comment(s): Father of lung cancer in his 80's Mother Family Medical History: Myocardial Infarction (ID) Additional Family Medical History / Comment(s): Mother of ID in her 80's Medications and Allergies Home Medications Medication Instructions Recorded Confirmed Type Aspirin [Adult Low Dose Aspirin EC] 81 mg PO DAILY 01/06/16 10/24/17 History Carvedilol 6.25 mg PO BID 01/06/16 10/24/17 History Citalopram Hydrobromide [CeleXA] 40 mg PO DAILY 10/21/17 10/24/17 History Gemfibrozil [Lopid] 600 mg PO AC-BID 10/21/17 10/24/17 History Mexiletine [Mexitil] 150 mg PO DAILY 10/21/17 10/24/17 History Omeprazole 40 mg PO DAILY 10/21/17 10/24/17 History Potassium Chloride ER [K-Dur 10] 10 meq PO DAILY 10/21/17 10/24/17 History Pregabalin [Lyrica] 75 mg PO BID 10/21/17 10/24/17 History Rosuvastatin [Crestor] 10 mg PO DAILY 10/21/17 10/24/17 History [place] 450mg 900 mg PO BID 10/21/17 10/24/17 History Tamsulosin [Flomax] 0.4 mg PO DAILY 10/21/17 10/24/17 History guaiFENesin-DM 600/30MG [Mucinex 1 each PO Q12HR 10/21/17 10/24/17 History Dm] metFORMIN HCL 1,000 mg PO BID 10/21/17 10/24/17 History Allergies Allergy/AdvReac Type Severity Reaction Status Date / Time No Known Allergies Allergy Verified 10/24/17 14:50 Surgical - Exam Osteopathic Statement: *. No significant issues noted on an osteopathic structural exam other than those noted in the History and Physical/Consult. Vital Signs Temp Pulse Resp BP Pulse Ox 97 F L 77 20 130/58 100 10/21/17 09:23 10/21/17 09:23 10/21/17 09:23 10/21/17 09:23 10/21/17 09:23 - General well nourished, no distress - Eyes PERRL, normal ocular movement - ENT normal mucosa - Neck no masses, no bruits, trachea midline - Respiratory normal respiratory effort - Abdomen Soft, nontender, no distention, no rebound, no guarding - Psychiatric oriented to time, oriented to person, oriented to place, speech is normal Results - Labs 10/25/17 04:19 10/25/17 04:19 Abnormal Lab Results - Last 24 Hours (Table) 10/22/17 10/24/17 10/24/17 Range/Units 06:10 06:45 15:01 WBC (3.8-10.6) k/uL RBC (4.30-5.90) m/uL Hgb (13.0-17.5) gm/dL Hct (39.0-53.0) % RDW (11.5-15.5) % Plt Count (150-450) k/uL Neutrophils # (Manual) (1.3-7.7) k/uL Lymphocytes # (Manual) (1.0-4.8) k/uL Metamyelocytes # (Man) (0) k/uL Myelocytes # (Manual) (0) k/uL Nucleated RBCs (0-0) /100 WBC Sodium (137-145) mmol/L Chloride (98-107) mmol/L Carbon Dioxide (22-30) mmol/L BUN (9-20) mg/dL Glucose (74-99) mg/dL POC Glucose (mg/dL) 171 H (75-99) mg/dL Calcium (8.4-10.2) mg/dL Parvovirus B19 IgG Ab 1.7 H (<0.9) INDEX Crossmatch See Detail 10/24/17 10/24/17 10/25/17 Range/Units 20:58 23:04 04:19 WBC 2.2 L 1.8 L* (3.8-10.6) k/uL RBC 2.24 L 2.11 L (4.30-5.90) m/uL Hgb 7.0 L* 6.6 L* (13.0-17.5) gm/dL Hct 20.6 L 19.8 L* (39.0-53.0) % RDW 23.5 H 22.0 H (11.5-15.5) % Plt Count 38 L* D 25 L* (150-450) k/uL Neutrophils # (Manual) 1.20 L 0.90 L (1.3-7.7) k/uL Lymphocytes # (Manual) 0.66 L 0.43 L (1.0-4.8) k/uL Metamyelocytes # (Man) 0.20 H 0.05 H (0) k/uL Myelocytes # (Manual) 0.02 H 0.05 H (0) k/uL Nucleated RBCs 1 H (0-0) /100 WBC Sodium (137-145) mmol/L Chloride (98-107) mmol/L Carbon Dioxide (22-30) mmol/L BUN (9-20) mg/dL Glucose (74-99) mg/dL POC Glucose (mg/dL) 237 H (75-99) mg/dL Calcium (8.4-10.2) mg/dL Parvovirus B19 IgG Ab (<0.9) INDEX Crossmatch 10/25/17 10/25/17 Range/Units 04:19 11:52 WBC (3.8-10.6) k/uL RBC (4.30-5.90) m/uL Hgb (13.0-17.5) gm/dL Hct (39.0-53.0) % RDW (11.5-15.5) % Plt Count (150-450) k/uL Neutrophils # (Manual) (1.3-7.7) k/uL Lymphocytes # (Manual) (1.0-4.8) k/uL Metamyelocytes # (Man) (0) k/uL Myelocytes # (Manual) (0) k/uL Nucleated RBCs (0-0) /100 WBC Sodium 128 L (137-145) mmol/L Chloride 95 L (98-107) mmol/L Carbon Dioxide 21 L (22-30) mmol/L BUN 39 H (9-20) mg/dL Glucose 198 H (74-99) mg/dL POC Glucose (mg/dL) 311 H (75-99) mg/dL Calcium 8.2 L (8.4-10.2) mg/dL Parvovirus B19 IgG Ab (<0.9) INDEX Crossmatch Diabetes panel 10/25/17 Range/Units 04:19 Sodium 128 L (137-145) mmol/L Potassium 4.5 (3.5-5.1) mmol/L Chloride 95 L (98-107) mmol/L Carbon Dioxide 21 L (22-30) mmol/L BUN 39 H (9-20) mg/dL Creatinine 1.00 (0.66-1.25) mg/dL Glucose 198 H (74-99) mg/dL Calcium 8.2 L (8.4-10.2) mg/dL Calcium panel 10/25/17 Range/Units 04:19 Calcium 8.2 L (8.4-10.2) mg/dL Phosphorus 4.2 (2.5-4.5) mg/dL Pituitary panel 10/25/17 Range/Units 04:19 Sodium 128 L (137-145) mmol/L Potassium 4.5 (3.5-5.1) mmol/L Chloride 95 L (98-107) mmol/L Carbon Dioxide 21 L (22-30) mmol/L BUN 39 H (9-20) mg/dL Creatinine 1.00 (0.66-1.25) mg/dL Glucose 198 H (74-99) mg/dL Calcium 8.2 L (8.4-10.2) mg/dL Adrenal panel 10/25/17 Range/Units 04:19 Sodium 128 L (137-145) mmol/L Potassium 4.5 (3.5-5.1) mmol/L Chloride 95 L (98-107) mmol/L Carbon Dioxide 21 L (22-30) mmol/L BUN 39 H (9-20) mg/dL Creatinine 1.00 (0.66-1.25) mg/dL Glucose 198 H (74-99) mg/dL Calcium 8.2 L (8.4-10.2) mg/dL Assessment and Plan Plan: 71-year-old male with pancytopenia - Patient is due for a colonoscopy, however during his inpatient stay there are more acute issues that need to be addressed - Agree with hematology oncology workup with bone marrow biopsy for pancytopenia - Orthopedic recommendations due to recent fracture and surgery - Would plan on outpatient colonoscopy when necessary I appreciate this consultation, and look forward and providing in this patient' s care
[2017-10-25] MEDS ORDERED: FUROSEMIDE 10 MG/ML 4 ML VIAL IV STA (15:30)
--- NOTE | 2017-10-25 17:10 | P.PN ---
Subjective Progress Note Date: 10/25/17 Principal diagnosis: pancytopenia Patient seen today postop. Considering surgery patient's CBC was relatively stable. He is being transfused with red blood cells and platelets. He is more alert today then yesterday, he is currently denying any pain, numbness or tingling in the leg. No fevers,appetite is poor, no nausea or vomit, he is comfortable breathing with O2. Objective - Vital Signs Vital signs: Vital Signs Temp 86 F L 10/25/17 16:39 Pulse 87 10/25/17 16:39 Resp 16 10/25/17 16:39 BP 107/58 10/25/17 16:39 Pulse Ox 100 10/25/17 16:00 Intake & Output 10/24/17 10/25/17 10/25/17 18:59 06:59 18:59 Intake Total 2122 1100 2132 Output Total 1700 1005 815 Balance 712 76 9254 Weight 98.9 kg 98.9 kg Intake: IV 1301 400 300 Sodium Chloride 0.45% 1, 400 300 000 ml @ 50 mls/hr IV . Q20H [facility] Rx#:[id number] Oral 700 Blood Product 821 1832 Platelet Pheresis Acda1 296 Unit [id number] Platelet Pheresis Acda3 201 Unit [id number] Rc As-1 Unit 310 [id number] Rc As-1 Unit 310 [id number] Rc Pheresis As-3 Unit 310 [id number] Output: Urine 1500 1005 815 Estimated Blood Loss 200 Other: Voiding Method Urinal Indwelling Catheter Indwelling Catheter - Constitutional General appearance: Present: average body habitus, cooperative, no acute distress - Respiratory Respiratory: bilateral: rales (few scattered) - Cardiovascular Heart sounds: normal: S1, S2 - Peripheral edema leg Peripheral Edema: bilateral: 1+, Pitting - Peripheral pulses dorsalis pedis Peripheral Pulses: bilateral: Normal - Gastrointestinal General gastrointestinal: Present: normal bowel sounds, soft - Integumentary Integumentary Comment(s): left leg dressing clean, dry, no bleeding noted, no bruising around dressing Integumentary: Present: pale - Neurologic Neurologic: Present: CNII-XII intact - Musculoskeletal Musculoskeletal: Present: generalized weakness - Psychiatric Psychiatric: Present: A&O x's 3, appropriate affect, intact judgment & insight - Labs CBC & Chem 7: 10/25/17 04:19 10/25/17 04:19 Labs: Abnormal Lab Results - Last 24 Hours (Table) 10/22/17 10/24/17 10/24/17 Range/Units 06:10 06:45 20:58 WBC (3.8-10.6) k/uL RBC (4.30-5.90) m/uL Hgb (13.0-17.5) gm/dL Hct (39.0-53.0) % RDW (11.5-15.5) % Plt Count (150-450) k/uL Neutrophils # (Manual) (1.3-7.7) k/uL Lymphocytes # (Manual) (1.0-4.8) k/uL Metamyelocytes # (Man) (0) k/uL Myelocytes # (Manual) (0) k/uL Nucleated RBCs (0-0) /100 WBC Sodium (137-145) mmol/L Chloride (98-107) mmol/L Carbon Dioxide (22-30) mmol/L BUN (9-20) mg/dL Glucose (74-99) mg/dL POC Glucose (mg/dL) 237 H (75-99) mg/dL Calcium (8.4-10.2) mg/dL Parvovirus B19 IgG Ab 1.7 H (<0.9) INDEX Crossmatch See Detail 10/24/17 10/25/17 10/25/17 Range/Units 23:04 04:19 04:19 WBC 2.2 L 1.8 L* (3.8-10.6) k/uL RBC 2.24 L 2.11 L (4.30-5.90) m/uL Hgb 7.0 L* 6.6 L* (13.0-17.5) gm/dL Hct 20.6 L 19.8 L* (39.0-53.0) % RDW 23.5 H 22.0 H (11.5-15.5) % Plt Count 38 L* D 25 L* (150-450) k/uL Neutrophils # (Manual) 1.20 L 0.90 L (1.3-7.7) k/uL Lymphocytes # (Manual) 0.66 L 0.43 L (1.0-4.8) k/uL Metamyelocytes # (Man) 0.20 H 0.05 H (0) k/uL Myelocytes # (Manual) 0.02 H 0.05 H (0) k/uL Nucleated RBCs 1 H (0-0) /100 WBC Sodium 128 L (137-145) mmol/L Chloride 95 L (98-107) mmol/L Carbon Dioxide 21 L (22-30) mmol/L BUN 39 H (9-20) mg/dL Glucose 198 H (74-99) mg/dL POC Glucose (mg/dL) (75-99) mg/dL Calcium 8.2 L (8.4-10.2) mg/dL Parvovirus B19 IgG Ab (<0.9) INDEX Crossmatch 10/25/17 Range/Units 11:52 WBC (3.8-10.6) k/uL RBC (4.30-5.90) m/uL Hgb (13.0-17.5) gm/dL Hct (39.0-53.0) % RDW (11.5-15.5) % Plt Count (150-450) k/uL Neutrophils # (Manual) (1.3-7.7) k/uL Lymphocytes # (Manual) (1.0-4.8) k/uL Metamyelocytes # (Man) (0) k/uL Myelocytes # (Manual) (0) k/uL Nucleated RBCs (0-0) /100 WBC Sodium (137-145) mmol/L Chloride (98-107) mmol/L Carbon Dioxide (22-30) mmol/L BUN (9-20) mg/dL Glucose (74-99) mg/dL POC Glucose (mg/dL) 311 H (75-99) mg/dL Calcium (8.4-10.2) mg/dL Parvovirus B19 IgG Ab (<0.9) INDEX Crossmatch Assessment and Plan (1) SOB (shortness of breath) Narrative/Plan: Likely some fluid overload from multiple transfusions, Lasix ordered. Pt on O2 , supportive meds prescribed, Pulmonary following. Current Visit: Yes Status: Acute Priority: High Code(s): R06.02 - SHORTNESS OF BREATH SNOMED Code(s): 724495019 (2) Pancytopenia Narrative/Plan: No clear underlying cause for persistently low counts in work up that has been completed. Plan is for bone marrow next week. This was discussed with pt and daughter at bedside. They agree with plan. This will be scheduled for next week. Current Visit: Yes Status: Acute Priority: High Code(s): D61.818 - OTHER PANCYTOPENIA SNOMED Code(s): 827064562 (3) Mediastinal adenopathy Current Visit: Yes Status: Acute Priority: High Code(s): R59.0 - LOCALIZED ENLARGED LYMPH NODES SNOMED Code(s): 16340431 (4) Squamous cell lung cancer Current Visit: No Status: Chronic Priority: Medium Code(s): C34.90 - MALIGNANT NEOPLASM OF UNSP PART OF UNSP BRONCHUS OR LUNG SNOMED Code(s): 992796524 (5) Nicotine dependence Current Visit: Yes Status: Chronic Code(s): F17.200 - NICOTINE DEPENDENCE, UNSPECIFIED, UNCOMPLICATED SNOMED Code(s): 79449516 (6) Closed left hip fracture Narrative/Plan: Pt post op this AM. Orthopedics following. Current Visit: Yes Status: Acute Priority: Medium Code(s): S72.002A - FRACTURE OF UNSP PART OF NECK OF LEFT FEMUR, INIT SNOMED Code(s): 614223583
[2017-10-25 17:36] LABS: Glucose,Whole Blood 268 mg/dL (75-99)
[2017-10-25] MEDS: GEMFIBROZIL 600 MG TAB PO SCH (17:50)
[2017-10-25] MEDS: SODIUM CHLORIDE 0.45% 1,000 ML IV SCH (17:50)
[2017-10-25] MEDS ORDERED: guaiFENesin-DM 100-10MG/5ML 10 ML CUP PO PRN (18:08)
--- NOTE | 2017-10-25 18:51 | P.PN ---
Progress Note - Text Progress Note Date: 10/25/17 Patient seen and examined in the ICU. Patient is complaining of cough productive of phlegm. He denies fevers and chills. He states "I need a new body." He has been hemodynamically stable. He is s/p left hip repair. Urine output has been adequate. Please see NURSE EDUCATOR note for full dictation. Ok to transfer out of ICU today.
[2017-10-25 18:52] LABS: Anisocytosis Moderate; HCT 25.6 % (39.0-53.0); MCH 30.4 pg (25.0-35.0); MCHC 32.9 g/dL (31.0-37.0); MCV 92.5 fL (80.0-100.0); Macrocytosis Slight; Mean Platelet Volume 10.7; RBC 2.77 m/uL (4.30-5.90); WBC 2.4 k/uL (3.8-10.6)
[2017-10-25 19:07] LABS: HGB 8.4 gm/dL (13.0-17.5)
[2017-10-25 19:10] LABS: Platelet Count 44 k/uL (150-450)
[2017-10-25 20:00] LABS: Band Neutrophils % 9 %; Eosinophils # (M) 0.02 k/uL (0-0.7); Lymphocytes # (M) 0.46 k/uL (1.0-4.8); Metamyelocytes # (M) 0.17 k/uL (0); Metamyelocytes % 7 %; Monocytes # (M) 0.38 k/uL (0-1.0); Myelocytes # (M) 0.34 k/uL (0); Myelocytes % 14 %; Neutrophils % (M) 35 %; Nucleated Red Blood Cells 1 /100 WBC (0-0); Total Cells Counted 200; Toxic Granulation Present
[2017-10-25 20:01] LABS: Large Platelets Present; Polychromasia Present
[2017-10-25 20:17] LABS: Glucose,Whole Blood 319 mg/dL (75-99)
[2017-10-25] MEDS: MORPHINE SULFATE 5 MG/ML SYRINGE IVP PRN (20:22)
[2017-10-25] MEDS: MONTELUKAST 10 MG TAB PO SCH (20:22)
[2017-10-25] MEDS: SENNOSIDES-DOCUSATE SODIUM 1 EACH TAB PO SCH (20:22)
[2017-10-26] MEDS: HYDROcodone/APAP 5-325MG 1 EACH TAB PO PRN (00:38)
[2017-10-26] MEDS: ZOLPIDEM 10 MG TAB PO PRN (00:39)
[2017-10-26] MEDS: SODIUM CHLORIDE 0.45% 1,000 ML IV SCH (02:50)
[2017-10-26] MEDS: methylPREDNISolone SOD SUCCI 125 MG/2 ML VIAL IV SCH ×4 (06:28→23:45)
[2017-10-26 07:27] LABS: Glucose,Whole Blood 233 mg/dL (75-99)
[2017-10-26 07:40] LABS: Anion Gap 14 mmol/L; Blood Urea Nitrogen 49 mg/dL (9-20); Calcium 8.5 mg/dL (8.4-10.2); Carbon Dioxide 21 mmol/L (22-30); Chloride 89 mmol/L (98-107); Glucose 210 mg/dL (74-99); Magnesium 2.5 mg/dL (1.6-2.3); Phosphorus 4.2 mg/dL (2.5-4.5); Potassium 5.5 mmol/L (3.5-5.1); Sodium 124 mmol/L (137-145)
[2017-10-26 07:51] LABS: Anisocytosis Moderate; HGB 8.8 gm/dL (13.0-17.5); MCHC 32.5 g/dL (31.0-37.0); MCV 92.4 fL (80.0-100.0); Macrocytosis Slight; Microcytosis Slight; RBC 2.92 m/uL (4.30-5.90); RDW 23.2 % (11.5-15.5)
[2017-10-26 07:57] LABS: Platelet Count 51 k/uL (150-450)
[2017-10-26] MEDS: BUDESONIDE 0.5 MG/2 ML NEBU INHALATION SCH ×2 (08:10→19:40)
[2017-10-26] MEDS: IPRATROPIUM-ALBUTEROL 3 ML NEB INHALATION SCH ×4 (08:10→19:40)
[2017-10-26] MEDS ORDERED: SODIUM CHLORIDE 0.9% 1,000 ML IV SCH (08:15)
--- NOTE | 2017-10-26 08:46 | XR ---
EXAMINATION TYPE: XR chest 1V portable DATE OF EXAM: 10/26/2017 COMPARISON: Yesterday HISTORY: Short of breath TECHNIQUE: Single frontal view of the chest is obtained. FINDINGS: There is patchy consolidation in the right lower lobe. There is no heart failure. Heart is enlarged. There is left axillary pacemaker with the lead tips in the right ventricle. There are ches t leads. There is blunting of right costophrenic angle. IMPRESSION: Consolidation and pleural fluid in the right lower lobe is the same or worse than yester day. No gross heart failure.
[2017-10-26 09:18] LABS: Band Neutrophils % 9 %; Lymphocytes # (M) 0.55 k/uL (1.0-4.8); Metamyelocytes # (M) 0.12 k/uL (0); Metamyelocytes % 4 %; Myelocytes # (M) 0.12 k/uL (0); Myelocytes % 4 %; Neutrophils % (M) 57 %; Nucleated Red Blood Cells 3 /100 WBC (0-0); Total Cells Counted 100; WBC 2.9 k/uL (3.8-10.6)
[2017-10-26 09:19] LABS: Poikilocytosis (M) Present; RBC Fragments Present
[2017-10-26] MEDS: INSULIN ASPART 100 UNIT/ML 1 ML 10 ML VIAL SQ SCH ×4 (09:28→21:00)
[2017-10-26] MEDS ORDERED: FUROSEMIDE 10 MG/ML 10 ML VIAL IV STA (09:30)
--- NOTE | 2017-10-26 09:40 | P.PN ---
Subjective Progress Note Date: 10/26/17 Principal diagnosis: Left hip/Femur Fracture Patient is 71 yo male seen at bedside this morning. He is 2 days postop from left sub/peritrochanteric femur fracture repair/stabilization with a long IT gamma nail and intamedullary hip screw. He has multiple medical issues is and is being managed by medicine. He does not communicate much this morning. He does not appear to be in acute distress. Objective - Vital Signs Vital signs: Vital Signs Temp 97.7 F 10/25/17 23:00 Pulse 84 10/26/17 08:28 Resp 20 10/26/17 00:00 BP 118/67 10/25/17 23:00 Pulse Ox 100 10/25/17 23:00 Intake & Output 10/25/17 10/26/17 10/26/17 18:59 06:59 18:59 Intake Total 2232 620 Output Total 1165 360 Balance 1067 260 Weight 98.9 kg Intake: IV 400 500 Sodium Chloride 0.45% 1, 400 500 000 ml @ 50 mls/hr IV . Q20H [facility] Rx#:[id number] Oral 120 Blood Product 1832 Platelet Pheresis Acda1 296 Unit [id number] Rc As-1 Unit 310 [id number] Rc Pheresis As-3 Unit 310 [id number] Output: Urine 1165 360 Other: Voiding Method Indwelling Catheter Urinal # Voids 1 - Exam Inspection of the left lower extremity shows a benign surgical wound. There is no active bleeding or drainage. Neurovascular status appears to be grossly intact with motor and sensation throughout the left lower extremity. Calf is soft and nontender. 2+ dorsalis pedis pulse and less than 2 second cap refill is present. - Constitutional General appearance: Present: no acute distress - Labs CBC & Chem 7: 10/26/17 07:09 10/26/17 07:09 Labs: Abnormal Lab Results - Last 24 Hours (Table) 10/24/17 10/25/17 10/25/17 Range/Units 06:45 11:52 17:30 WBC (3.8-10.6) k/uL RBC (4.30-5.90) m/uL Hgb (13.0-17.5) gm/dL Hct (39.0-53.0) % RDW (11.5-15.5) % Plt Count (150-450) k/uL Neutrophils # (Manual) (1.3-7.7) k/uL Lymphocytes # (Manual) (1.0-4.8) k/uL Metamyelocytes # (Man) (0) k/uL Myelocytes # (Manual) (0) k/uL Nucleated RBCs (0-0) /100 WBC D-Dimer (<0.60) mg/L FEU Sodium (137-145) mmol/L Potassium (3.5-5.1) mmol/L Chloride (98-107) mmol/L Carbon Dioxide (22-30) mmol/L BUN (9-20) mg/dL Glucose (74-99) mg/dL POC Glucose (mg/dL) 311 H 268 H (75-99) mg/dL Magnesium (1.6-2.3) mg/dL Crossmatch See Detail 10/25/17 10/25/17 10/26/17 Range/Units 18:40 20:14 07:09 WBC 2.4 L 2.9 L (3.8-10.6) k/uL RBC 2.77 L 2.92 L (4.30-5.90) m/uL Hgb 8.4 L D 8.8 L (13.0-17.5) gm/dL Hct 25.6 L 27.0 L (39.0-53.0) % RDW 23.0 H 23.2 H (11.5-15.5) % Plt Count 44 L* D 51 L (150-450) k/uL Neutrophils # (Manual) 1.00 L (1.3-7.7) k/uL Lymphocytes # (Manual) 0.46 L 0.55 L (1.0-4.8) k/uL Metamyelocytes # (Man) 0.17 H 0.12 H (0) k/uL Myelocytes # (Manual) 0.34 H 0.12 H (0) k/uL Nucleated RBCs 1 H 3 H (0-0) /100 WBC D-Dimer (<0.60) mg/L FEU Sodium (137-145) mmol/L Potassium (3.5-5.1) mmol/L Chloride (98-107) mmol/L Carbon Dioxide (22-30) mmol/L BUN (9-20) mg/dL Glucose (74-99) mg/dL POC Glucose (mg/dL) 319 H (75-99) mg/dL Magnesium (1.6-2.3) mg/dL Crossmatch 10/26/17 10/26/17 10/26/17 Range/Units 07:09 07:25 08:52 WBC (3.8-10.6) k/uL RBC (4.30-5.90) m/uL Hgb (13.0-17.5) gm/dL Hct (39.0-53.0) % RDW (11.5-15.5) % Plt Count (150-450) k/uL Neutrophils # (Manual) (1.3-7.7) k/uL Lymphocytes # (Manual) (1.0-4.8) k/uL Metamyelocytes # (Man) (0) k/uL Myelocytes # (Manual) (0) k/uL Nucleated RBCs (0-0) /100 WBC D-Dimer 1.90 H (<0.60) mg/L FEU Sodium 124 L (137-145) mmol/L Potassium 5.5 H (3.5-5.1) mmol/L Chloride 89 L (98-107) mmol/L Carbon Dioxide 21 L (22-30) mmol/L BUN 49 H (9-20) mg/dL Glucose 210 H (74-99) mg/dL POC Glucose (mg/dL) 233 H (75-99) mg/dL Magnesium 2.5 H (1.6-2.3) mg/dL Crossmatch Assessment and Plan (1) Closed left hip fracture Narrative/Plan: He is to continue with routine postop orthopedic protocol including pain management, wound care, DVT prophylaxis, physical therapy where he is nonweightbearing with the left lower extremity, and medical management. We will continue to follow make further recommendations as appropriate.. Current Visit: Yes Status: Acute Priority: Medium Code(s): S72.002A - FRACTURE OF UNSP PART OF NECK OF LEFT FEMUR, INIT SNOMED Code(s): 152651473 Time with Patient: Less than 30
[2017-10-26] MEDS ORDERED: FUROSEMIDE 10 MG/ML 2 ML VIAL IV ONE (10:10)
[2017-10-26 10:18] LABS: Glucose,Whole Blood 262 mg/dL (75-99)
[2017-10-26] MEDS: PREGABALIN 75 MG CAP PO SCH ×2 (10:24→22:13)
[2017-10-26] MEDS: MEXILETINE 150 MG CAP PO SCH (10:24)
[2017-10-26] MEDS: TAMSULOSIN 0.4 MG CAP.ER.24H PO SCH (10:24)
--- NOTE | 2017-10-26 11:19 | OP ---
OPERATIVE REPORT DATE OF PROCEDURE: 10/24/2017. PREOPERATIVE DIAGNOSIS: Left closed subtrochanteric femur fracture. POSTOPERATIVE DIAGNOSIS: Left closed subtrochanteric femur fracture. PROCEDURE: Open reduction and internal fixation with cephalomedullary nail for left subtrochanteric femur fracture. SURGEON: Kolby Lau MD [employer] SUPERVISOR: SURESH Menendez. ANESTHESIA: General endotracheal. ESTIMATED BLOOD LOSS: 200 mL. TOURNIQUET: None. DRAINS: None. COMPLICATIONS: None apparent. DISPOSITION: Postanesthesia care unit. INDICATIONS: Evan is a very pleasant, 71-year-old male, who was admitted to the hospital several days ago for anemia. He does carry diagnosis a diagnosis of lung cancer as well. Unfortunately he fell during his hospital stay while going to the bathroom, the night of the , and sustained a subtrochanteric femur fracture. We were consulted. He is an independent ambulator. A long discussion with Evan and his daughter with regard to treatment options. They do wish to proceed with operative intervention. The risks were explained to the patient and his daughter which include but are not limited to, risk of infection, nerve damage, bleeding, pain, and a small risk of deep vein thrombosis which could lead to fatal pulmonary embolism. Further risks include periprosthetic fracture, failure of the fracture to heal, and continued pain in the leg. Certainly Evan is of high perioperative risk also due to his underlying medical condition. The patient and his family understand the risks and they wish to proceed with the surgical procedure. DESCRIPTION OF PROCEDURE: The patient was identified in the preoperative holding area. Surgical sites marked by both the patient myself. He is given 2 g of Ancef IV for prophylactic purposes. He was then transferred to the operative suite, placed supine on the operative table. A general anesthetic was then administered dosed per the Anesthesia Department without apparent complication. He was then placed onto the fracture table well-padded in preparation for surgery. Fluoroscopy was then brought in preoperatively. The fracture was reduced as good as possible with traction and rotation. Also had the C-arm set up for the case preoperatively. The patient's left lower extremity was then prepped and draped in the usual sterile fashion. Standard surgical pause undertaken to ensure that we were operating the correct site and that appropriate preoperative antibiotics were given. All staff in the room in agreement and we proceeded. Fluoroscopy was then brought in. The level of the fracture was then identified. I made 5 to 7 cm incision centered over the fracture site laterally on the thigh. Dissection was carried down sharply to the tensor fascia. Hemostasis was achieved with electrocautery. The tensor fascia was then incised in line with the incision. The vastus lateralis muscle was then incised utilizing electrocautery. This exposed the femur fracture. I then, utilizing rotation as well as a large compressive clamp, was able to reduce the fracture. The clamp was left on the fracture. I had good visualization of the fracture reduction. I then proceeded with placement of the cephalomedullary nail. A second small 2 to 3 cm incision extending from the tip of the greater trochanter proximally in line with the femur was then made. Dissection was carried down sharply to the tensor fascia. The tensor fascia was incised in line with the incision. The curved awl was then placed on the medial aspect of the greater trochanter. The threaded guide pin was then advanced down the femoral shaft. Fluoroscopy was utilized to ensure proper placement. I then used the starting drill. The soft tissue protector was placed. The starting drill was utilized to gain access to the proximal femur. The threaded guide pin was removed and the ball-tipped guidewire was then placed down the shaft of the femur. Correct placement of the ball-tipped guidewire within the shaft femur was again confirmed with fluoroscopy. I then proceeded to measure the ball-tipped guidewire for length as we were going to utilize a long cephalomedullary nail. This measured at 380 mm. I then over-reamed the ball-tipped guidewire. I started with a 9 mm reamer and increasing incrementally up to a 13 mm reamer as to accept an 11 mm cephalomedullary nail. I then had the [employer] inside sales account representative open a 380 mm x 11 mm x 125 degree cephalomedullary nail. This was then placed onto the manager of regulatory affairs by the ophthalmic surgical assistant. The nail was then inserted over the ball-tipped guidewire. Fluoroscopy was utilized to visualize the nail as it passed the fracture site. It was then advanced down the femur. The ball-tipped guidewire was removed. I then proceeded with placement of the hip screw. The guide was then placed along the lateral cortex of the femur. This was placed through the previously placed incision. The guide pin was then placed in the center of the femoral head on both AP and lateral views. The tip-apex distance was appropriate. I then measured for length. A 105 mm screw was deemed appropriate. The reamer was then set at 105 mm and then the threaded guide pin was then reamed under fluoroscopic imaging. I then had the inside sales account representative open a 10 mm x 105 mm Shireen cannulated hip screw. This was then placed over the threaded guide pin. It had excellent purchase in the femoral head. The hip screw was placed deep and central in the femoral head on both AP and lateral views. The tip-apex distance was appropriate. I then utilized the set screw and locked the hip screw fully. I then proceeded to again evaluate the rotation, the distal rotation of the femur was deemed appropriate. I then proceeded to place 2 distal interlocking screws through the nail. The fluoroscopy was then reoriented to allow for perfect circles of the distal screw of the nail. I first placed from lateral to medial placed a 5 mm x 45 mm screw through the proximal static locking hole. This was done utilized standard technique. Fluoroscopy was utilized to ensure that it's placement was through the nail and that the length of the screw was appropriate. I then placed a 2nd 5 mm x 45 mm screw distally in the oblong hole of the nail. This was again placed utilizing standard technique, and utilizing fluoroscopy to ensure that it was of appropriate length and that was indeed through the distal slot of the nail. At this point, I proceeded to remove the clamp. The fracture was very stable. I decided at this point not to place a cerclage wire around the fracture. At this point in time, final fluoroscopic images were taken. The long nail was of appropriate length. The distal interlocking screws were through the nail and were of appropriate length. The proximal hip screw was well seated in the center of the femoral head and tip-apex distance was appropriate. The fracture had been reduced nicely and was very stable. At this point time nothing further was deemed necessary. The proximal inserting device was removed from the nail. Final fluoroscopic images were taken. I proceeded with closure. All 3 wounds were thoroughly irrigated with sterile saline solution with antibiotic added. The vastus lateralis fascia was closed with 2-0 Vicryl interrupted suture. The tensor fascia was closed with 0 Vicryl interrupted suture and the subcutaneous tissues were closed with 2-0 Vicryl interrupted suture. The skin was closed with stainless steel kasie. Sterile compressive dressings were then applied. All sponge and needle counts were deemed correct prior to closure. The patient tolerated the procedure well without apparent complication. He was transferred to the recovery room in stable condition. SARAH / POLO: [id number] /
[2017-10-26 11:48] LABS: Glucose,Whole Blood 238 mg/dL (75-99)
[2017-10-26] MEDS: PANTOPRAZOLE 40 MG TABLET PO SCH (12:29)
[2017-10-26] MEDS: CARVEDILOL 6.25 MG TAB PO SCH ×2 (12:29→21:55)
[2017-10-26] MEDS: ATORVASTATIN 20 MG TAB PO SCH (12:29)
[2017-10-26] MEDS: GEMFIBROZIL 600 MG TAB PO SCH ×2 (12:29→17:51)
[2017-10-26] MEDS: CITALOPRAM HYDROBROMIDE 20 MG TAB PO SCH (12:29)
[2017-10-26] MEDS: metFORMIN 500 MG TAB PO SCH ×2 (12:30→21:58)
[2017-10-26] MEDS: guaiFENesin-DM 600/30MG 1 EACH TAB.ER.12H PO SCH (12:30)
[2017-10-26] MEDS: ENOXAPARIN 30 MG/0.3 ML SYRINGE SQ SCH (13:27)
[2017-10-26] MEDS: MULTIVITAMINS, THERA 1 EACH TAB PO SCH (13:27)
[2017-10-26] MEDS: CYANOCOBALAMIN 1,000 MCG/ML 1 ML VIAL IM SCH (13:27)
[2017-10-26] MEDS: NICOTINE 21MG/24HR PATCH TRANSDERM SCH (13:30)
--- NOTE | 2017-10-26 13:35 | P.CRDCN ---
History of Present Illness Consult date: 10/26/17 Requesting physician: Bradly Yang Reason for Consult (text): Pacer failure to capture Chief complaint: shortness of breath History of present illness: This is a pleasant 71-year-old gentleman who follows with Dr. Sutton in the office. He has a history of diabetes, hypertension, dyslipidemia, severe nonischemic cardiomyopathy status post dual-chamber AICD placement, lung cancer , continues to smoke. Initially presented to the hospital here and was admitted with anemia. Patient sustained a fall and subsequently underwent ORIF of the left hip. Was transferred to selective care today and we are placement consults due to questionable pacemaker malfunction. Patient is currently complaining of shortness of breath with chest discomfort he is quite restless. HPI was obtained from the chart due to his incoherence, obtain a limited review of systems as well. EKG shows patient to be in atrial fibrillation, does not appear patient has a history of this. She continues to be anemic at with a hemoglobin of 8.8 this is improved he was 6.3 on admission. Platelet count is low at 51. He did have a d-dimer drawn came back to be elevated at 1.9. Sodium is low at 124 troponin 1 was negative. Upon examination, patient is restless, visibly short of breath and dyspneic. Past Medical History Past Medical History: Cancer, Diabetes Mellitus, GERD/Reflux, Hyperlipidemia, Hypertension, Renal Disease Additional Past Medical History / Comment(s): R sided LUNG CA, cardiomyopathy with AICD, STATES WAS TOLD HAD KIDNEY STONES IN PAST, FREQUENT SINUSITIS, IDDM diagnosed within the past year, History of Any Multi-Drug Resistant Organisms: None Reported Past Surgical History: AICD, Orthopedic Surgery Additional Past Surgical History / Comment(s): 06/04/16 Robotic assisted R thoracoscopy, R upper lobectomy, mediastinal lymph node disection, cryoablation intercostal nerves 3-7. Other surgical hx: AICD, DFT, RT SHOULDER SX for dislocation, AICHA CATARACTS, bilateral lasik eye surgery, testicular surgery, Past Anesthesia/Blood Transfusion Reactions: No Reported Reaction Type of Cardiac Device: AICD Device Placement Date:: 2005 [employer] Past Psychological History: Anxiety Additional Psychological History / Comment(s): Pt currently resides with son. He is independent. He drives. Smoking Status: Current every day smoker Past Alcohol Use History: None Reported Additional Past Alcohol Use History / Comment(s): SMOKES 1 PPD SINCE AGE OF 17 OR YOUNGER Past Drug Use History: None Reported - Past Family History Father Family Medical History: Cancer Additional Family Medical History / Comment(s): Father of lung cancer in his 80's Mother Family Medical History: Myocardial Infarction (HI) Additional Family Medical History / Comment(s): Mother of HI in her 80's Medications and Allergies Home Medications Medication Instructions Recorded Confirmed Type Aspirin [Adult Low Dose Aspirin EC] 81 mg PO DAILY 01/06/16 10/24/17 History Carvedilol 6.25 mg PO BID 01/06/16 10/24/17 History Citalopram Hydrobromide [CeleXA] 40 mg PO DAILY 10/21/17 10/24/17 History Gemfibrozil [Lopid] 600 mg PO AC-BID 10/21/17 10/24/17 History Mexiletine [Mexitil] 150 mg PO DAILY 10/21/17 10/24/17 History Omeprazole 40 mg PO DAILY 10/21/17 10/24/17 History Potassium Chloride ER [K-Dur 10] 10 meq PO DAILY 10/21/17 10/24/17 History Pregabalin [Lyrica] 75 mg PO BID 10/21/17 10/24/17 History Rosuvastatin [Crestor] 10 mg PO DAILY 10/21/17 10/24/17 History [place] 450mg 900 mg PO BID 10/21/17 10/24/17 History Tamsulosin [Flomax] 0.4 mg PO DAILY 10/21/17 10/24/17 History guaiFENesin-DM 600/30MG [Mucinex 1 each PO Q12HR 10/21/17 10/24/17 History Dm] metFORMIN HCL 1,000 mg PO BID 10/21/17 10/24/17 History Allergies Allergy/AdvReac Type Severity Reaction Status Date / Time No Known Allergies Allergy Verified 10/24/17 14:50 Physical Exam Vitals: Vital Signs Temp Pulse Pulse Pulse Resp BP BP 10/26/17 12:01 92 10/26/17 11:55 90 10/26/17 08:28 84 10/26/17 08:11 76 10/26/17 07:00 97.8 F 111 H 20 138/76 10/26/17 00:00 20 10/25/17 23:00 97.7 F 77 20 118/67 10/25/17 21:00 122/61 10/25/17 20:00 97.6 F 74 22 122/61 10/25/17 19:46 85 10/25/17 19:28 79 10/25/17 19:00 83 18 114/65 10/25/17 18:30 73 12 114/65 10/25/17 18:00 78 25 H 114/65 10/25/17 17:30 83 22 110/56 10/25/17 17:00 80 27 H 107/58 10/25/17 16:39 86 F L 87 16 107/58 10/25/17 16:30 80 22 111/65 10/25/17 16:00 97.4 F L 93 22 118/78 10/25/17 15:41 88 10/25/17 15:30 77 23 126/55 10/25/17 15:29 84 10/25/17 15:17 97 F L 80 16 110/68 10/25/17 15:00 90 23 118/64 10/25/17 14:47 96.9 F L 92 16 107/62 10/25/17 14:37 97.6 F 74 16 89/64 10/25/17 14:30 88 22 103/71 10/25/17 14:25 97.6 F 89 16 113/60 10/25/17 14:00 88 14 101/63 10/25/17 13:30 75 20 111/68 10/25/17 13:00 75 20 115/53 10/25/17 12:35 97.2 F L 16 L 16 105/62 10/25/17 12:30 77 22 103/62 Pulse Ox 10/26/17 12:01 10/26/17 11:55 10/26/17 08:28 10/26/17 08:11 10/26/17 07:00 96 10/26/17 00:00 10/25/17 23:00 100 10/25/17 21:00 10/25/17 20:00 97 10/25/17 19:46 10/25/17 19:28 10/25/17 19:00 98 10/25/17 18:30 99 10/25/17 18:00 98 10/25/17 17:30 98 10/25/17 17:00 99 10/25/17 16:39 10/25/17 16:30 98 10/25/17 16:00 100 10/25/17 15:41 10/25/17 15:30 100 10/25/17 15:29 10/25/17 15:17 10/25/17 15:00 90 L 10/25/17 14:47 10/25/17 14:37 10/25/17 14:30 99 10/25/17 14:25 10/25/17 14:00 98 10/25/17 13:30 98 10/25/17 13:00 99 10/25/17 12:35 10/25/17 12:30 99 Intake and Output 10/25/17 10/26/17 10/26/17 22:59 06:59 14:59 Intake Total 842 520 Output Total 830 Balance 12 520 Intake: IV 250 400 Sodium Chloride 0.45% 1, 250 400 000 ml @ 50 mls/hr IV . Q20H [facility] Rx#:[id number] Oral 120 Blood Product 592 Platelet Pheresis Acda1 296 Unit [id number] Output: Urine 830 Other: Voiding Method Indwelling Catheter Urinal # Voids 1 PHYSICAL EXAMINATION: HEENT: Head is atraumatic, normocephalic. Pupils equal, round. Neck is supple. There is no elevated jugular venous pressure. HEART EXAMINATION: Heart sounds irregularly irregular, S1 and S2 normal. No murmur or gallop heard. CHEST EXAMINATION: Lungs reveal coarse rhonchi and rales throughout. No chest wall tenderness is noted on palpation or with deep breathing. ABDOMEN: Soft, obese, nontender. Bowel sounds are heard. No organomegaly noted. EXTREMITIES: 2+ peripheral pulses with no evidence of peripheral edema and no calf tenderness noted. NEUROLOGIC patient is awake and oriented to person, restless. . Results 10/26/17 07:09 10/26/17 07:09 Cardiac Enzymes 10/26/17 Range/Units 08:52 Troponin I 0.015 (0.000-0.034) ng/mL CBC 10/25/17 10/26/17 Range/Units 18:40 07:09 WBC 2.4 L 2.9 L (3.8-10.6) k/uL RBC 2.77 L 2.92 L (4.30-5.90) m/uL Hgb 8.4 L D 8.8 L (13.0-17.5) gm/dL Hct 25.6 L 27.0 L (39.0-53.0) % Plt Count 44 L* D 51 L (150-450) k/uL Comprehensive Metabolic Panel 10/26/17 Range/Units 07:09 Sodium 124 L (137-145) mmol/L Potassium 5.5 H (3.5-5.1) mmol/L Chloride 89 L (98-107) mmol/L Carbon Dioxide 21 L (22-30) mmol/L BUN 49 H (9-20) mg/dL Creatinine 1.10 (0.66-1.25) mg/dL Glucose 210 H (74-99) mg/dL Calcium 8.5 (8.4-10.2) mg/dL Current Medications Generic Name Dose Route Start Last Admin Trade Name Freq PRN Reason Stop Dose Admin Hydrocodone Bitart/Acetaminophen 1 each 10/24/17 22:31 [place] 5-325 PO Q6HR PRN Pain Scale 1 to 5 Hydrocodone Bitart/Acetaminophen 2 each 10/24/17 22:31 10/26/17 00:38 [place] 5-325 PO 2 each Q6HR PRN Administration Pain Scale 6 to 10 Albuterol/Ipratropium 3 ml 10/22/17 12:00 10/26/17 11:52 Duoneb 0.5 Mg-3 Mg/3 Ml Soln INHALATION 3 ml RT-QID MEMO Administration Atorvastatin Calcium 20 mg 10/22/17 09:00 10/25/17 09:38 Lipitor PO 20 mg DAILY MEMO Administration Budesonide 0.5 mg 10/22/17 20:00 10/26/17 08:10 Pulmicort INHALATION 0.5 mg RT-BID MEMO Administration Calcium Carbonate/Glycine 500 mg 10/23/17 14:21 10/23/17 14:40 Tums PO 500 mg QID PRN Administration Heartburn Carvedilol 6.25 mg 10/21/17 21:00 10/25/17 20:22 Coreg PO 6.25 mg BID MEMO Administration Citalopram Hydrobromide 40 mg 10/22/17 09:00 10/25/17 09:39 Celexa PO 40 mg DAILY MEMO Administration Cyanocobalamin 1,000 mcg 10/24/17 10:15 10/25/17 09:39 Vitamin B-12 IM 10/28/17 09:01 1,000 mcg DAILY MEMO Administration Filgrastim 300 mcg 10/21/17 23:30 10/25/17 11:53 Zarxio SQ 300 mcg DAILY MEMO Administration Furosemide 40 mg 10/26/17 16:00 Lasix IV Q8HR MEMO Gemfibrozil 600 mg 10/21/17 17:30 10/25/17 17:50 Lopid PO 600 mg AC-BID MEMO Administration Guaifenesin/Dextromethorphan 1 each 10/21/17 21:00 10/25/17 20:22 Mucinex Dm PO 1 each Q12HR MEMO Administration Hydromorphone HCl 0.125 mg 10/24/17 22:31 Dilaudid IVP Q3HR PRN Pain Scale 1 to 3 IF NPO Hydromorphone HCl 0.25 mg 10/24/17 22:31 Dilaudid IVP Q3HR PRN Pain Scale 4 to 6 IF NPO Insulin Aspart 0 unit 10/21/17 17:30 10/26/17 09:28 Novolog SQ Not Given ACHS [facility] Protocol Magnesium Hydroxide 2,400 mg 10/24/17 22:31 Milk Of Magnesia PO DAILY PRN Constipation Metformin HCl 1,000 mg 10/21/17 21:00 10/25/17 20:22 Glucophage PO 1,000 mg BID MEMO Administration Methylprednisolone Sodium Succinate 60 mg 10/22/17 12:00 10/26/17 06:28 Solu-Medrol IV 60 mg Q6HR MEMO Administration Mexiletine HCl 150 mg 10/22/17 09:00 10/26/17 10:24 Mexitil PO Not Given DAILY [facility] Miscellaneous Information 1 each 10/25/17 05:37 Magnesium Per Protocol MISCELLANE DAILY PRN Per Protocol Protocol Montelukast Sodium 10 mg 10/22/17 21:00 10/25/17 20:22 Singulair PO 10 mg HS MEMO Administration Morphine Sulfate 4 mg 10/23/17 23:54 10/25/17 20:22 Morphine Sulfate IVP 4 mg Q1HR PRN Administration Pain Scale 7 to 10 Multivitamins 1 each 10/25/17 12:00 10/25/17 11:54 Theragran PO 1 each DAILY@1200 MEMO Administration Naloxone HCl 0.2 mg 10/24/17 22:31 Narcan IV Q2M PRN Opioid Reversal Nicotine 1 patch 10/22/17 10:00 10/25/17 09:48 Habitrol 21mg/24hr Patch TRANSDERM 1 patch DAILY MEMO Administration Pantoprazole Sodium 40 mg 10/22/17 07:30 10/25/17 09:38 Protonix PO 40 mg AC-BRKFST MEMO Administration Pregabalin 75 mg 10/21/17 21:00 10/26/17 10:24 Lyrica PO Not Given BID MEMO Senna/Docusate Sodium 2 each 10/25/17 21:00 10/25/17 20:22 Senokot-S PO 2 each HS MEMO Administration Tamsulosin HCl 0.4 mg 10/22/17 09:00 10/26/17 10:24 Flomax PO Not Given DAILY MEMO Zolpidem Tartrate 10 mg 10/21/17 22:17 10/26/17 00:39 Ambien PO 10 mg HS PRN Administration Insomnia Intake and Output 10/25/17 10/26/17 10/26/17 22:59 06:59 14:59 Intake Total 842 520 Output Total 830 Balance 12 520 Intake: IV 250 400 Sodium Chloride 0.45% 1, 250 400 000 ml @ 50 mls/hr IV . Q20H [facility] Rx#:[id number] Oral 120 Blood Product 592 Platelet Pheresis Acda1 296 Unit [id number] Output: Urine 830 Other: Voiding Method Indwelling Catheter Urinal # Voids 1 10/26/17 07:09 10/26/17 07:09 Assessment and Plan Assessment: #1 new onset atrial fibrillation with controlled ventricular response, unknown duration #2 acute respiratory distress with symptoms of shortness of breath and chest discomfort #3 severe nonischemic cardiomyopathy, status post dual-chamber ICD which appears to be pacing appropriately #4 lung cancer #5 nicotine dependence 6 hypertension #7 diabetes #8 status post ORIF Plan: From beef splitter perspective we'll obtain a BNP as well as a 2-D echo with Doppler. Will give the patient Lasix IV push 80 mg times one then 40 mg IV push every 8 hours. Obtain input from oncology regarding starting DVT prophylaxis with either Lovenox or low-dose Xarelto. Further decisions regarding anticoagulation to be made. Further recommendations to follow. NERVE SPECIALIST note has been reviewed, I agree with a documented findings and plan of care. Patient was seen and examined.
[2017-10-26] MEDS: FUROSEMIDE 10 MG/ML 4 ML VIAL IV SCH ×2 (15:07→23:45)
[2017-10-26] MEDS: FILGRASTIM-SNDZ 300 MCG/0.5 ML SYRINGE SQ SCH (15:07)
--- NOTE | 2017-10-26 15:38 | ECHOF ---
Referral Reason:shortness of breath, chest pain MEASUREMENTS -------- HEIGHT: 182.9 cm WEIGHT: 98.9 kg BP: IVSd: 1.0 cm (0.6 - 1.1) LVIDd: 5.0 cm (3.9 - 5.3) LVPWd: 1.1 cm (0.6 - 1.1) EDV(Teich): 121 ml IVSs: 1.2 cm LVIDs: 4.0 cm LVPWs: 1.3 cm %IVS Thck: 30 % ESV(Teich): 71 ml EF(Teich): 41 % %FS: 20 % SV(Teich): 50 ml RVIDd: 3.2 cm (< 3.3) Ao Diam: 3.8 cm (2.0 - 3.7) LA Diam: 3.8 cm (2.7 - 3.8) EPSS: 2.0 cm MV E Josef: 1.20 m/s MV DecT: 150 ms MV Dec Heard: 8.0 m/s MV A Josef: 0.34 m/s MV E/A Ratio: 3.56 MV PHT: 44 ms AV Vmax: 1.54 m/s AV maxP.45 mmHg TR Vmax: 2.84 m/s TR maxP.31 mmHg RAP: 5.00 mmHg RVSP: 37.31 mmHg MV EF SLOPE: 103.18 mm/s (70 - 150) MV EXCURSION: 22.13 mm (> 18.000) FINDINGS -------- Paced rhythm. This was a technically adequate study. Left ventricular wall thickness is normal. Overall left ventricular systolic function is mild-moder ately impaired with, an EF between 40 - 45 %. The right ventricle is normal in size. The right atrial size is normal. There is mild aortic valve sclerosis. There is no evidence of aortic regurgitation. Mild mitral annular calcification present. [id number]-cfhffxnq mitral regurgitation is present. Mild tricuspid regurgitation present. There is mild pulmonary hypertension. The right ventricular systolic pressure, as measured by Doppler, is 37.31mmHg. There is no pulmonic regurgitation present. The aortic root size is normal. Echo free space represents a pericardial fat pad. CONCLUSIONS -------- 1. This was a technically adequate study. 2. Left ventricular wall thickness is normal. 3. Overall left ventricular systolic function is mild-moderately impaired with, an EF between 40 - 45 %. 4. There is mild aortic valve sclerosis. 5. Mild mitral annular calcification present. 6. Zkix-op-ruwjndvk mitral regurgitation is present. 7. Mild tricuspid regurgitation present. 8. There is mild pulmonary hypertension. 9. The right ventricular systolic pressure, as measured by Doppler, is 37.31mmHg. 10. The aortic root size is normal. 11. Echo free space represents a pericardial fat pad. [employer]: Layne Miller RDCS
--- NOTE | 2017-10-26 15:46 | PN ---
PROGRESS NOTE DATE OF SERVICE: 10/26/2017 He started to get more short of breath and had some missed pacemaker spikes on his telemetry. He was transferred from the Oncology floor to telemetry this morning. He is sleepy but arousable. He is quite short of breath and using accessory muscles of respiration. On physical examination, his respiratory rate is 26, pulse rate of 111, temperature 97.8, blood pressure 138/76, O2 saturation on 2 L by nasal cannula is 96%. HEENT reveals pupils that are equal. There is prominence of the jugular vein. Chest reveals decreased breath sounds at the bases. Prolonged expiration with wheeze. Cardiovascular system reveals an S1, S2. No S3, no S4. Short systolic murmur. The abdomen is soft. There is 1+ to 2+ pedal edema. His white count is 2.9, hemoglobin of 8.8, platelet count of 51, sodium is 124, potassium 5.5, chloride 89, bicarb 21, BUN 49, creatinine of 1.1. IMPRESSION: 1. Recent left hip fracture status post surgery. 2. Congestive heart failure. 3. Chronic obstructive pulmonary disease with exacerbation. 4. Squamous cell cancer of the lung with possible recurrence. 5. Hyponatremia, which may be due to SIADH. 6. Pancytopenia status post packed cells as well as platelet transfusion. At this point in time, give him a single dose of Lasix. Keep him in negative fluid balance. Agree with cardiology consultation. Depending on how he does we should make further changes to his care. His prognosis at this time is guarded. MMODL / IJN: [id number] /
--- NOTE | 2017-10-26 15:52 | PN ---
PROGRESS NOTE SUBJECTIVE: 71-year-old white male transferred out of ICU to the 5th floor as he is status post 2 units of blood after hip fracture surgery after he tripped and fell apparently on a hose. He was stabilized and sent down to ICU. Last night, he became very confused with abnormal labs, acting funny, was sent up to the floor for possible pacemaker malfunction. On exam today, he is clinically audibly wet and can hear crackles when he breathes. He is all swollen with 3+ pedal edema and generalized edema. Lungs shows crackles or rhonchi and rales x4. Cardiovascular: S1, S2. Respiratory rate 25 to 35. ASSESSMENT: 1. Acute congestive heart failure, suspect diastolic. 2. Chronic obstructive pulmonary disease. 3. Lung cancer. 4. Severe anemia, status post hip fracture. IV Lasix 60 mg ordered by bending shed worker, which will be given. I agree on this. Cardiology has been consulted. Pacemaker check will be done by Cardiology. He had hyponatremia, which would be treated with changing his IV fluids. Prognosis extremely poor. MMODL / IJN: [id number] /
--- NOTE | 2017-10-26 16:25 | PN ---
PROGRESS NOTE DATE OF SERVICE: October 26, 2017. CHIEF COMPLAINT: Short of breath. Evan seen today as a followup. He is very short of breath and tired. There is no melena, hematochezia, hematuria or hemoptysis and no fever or chills. CURRENT MEDICATIONS: Include albuterol inhaler, Lipitor 20 mg daily. Pulmicort b.i.d., Tums q.i.d., Coreg 6.25 mg b.i.d., Celexa 40 mg daily. Vitamin B12 a 1000 IM daily, Lovenox 30 mg subcu daily, 300 mcg subcu daily, Lasix 40 mg daily, Lopid 600 mg b.i.d., Mucinex every 12 hours, [place] as needed every 6 hours. Dilaudid as needed IV, NovoLog sliding scale. Milk of magnesia. Metformin 1000 mg b.i.d., Solu-Medrol 60 mg IV q.6 hours, Mexitil 150 mg p.o. daily. Singulair 10 mg daily, multivitamin, nicotine patch. Protonix 40 mg b.i.d., Lyrica 75 mg a day, and Ambien 10 mg at bedtime as needed. PHYSICAL EXAMINATION: He is alert, but he appears to be very dyspneic. His vital signs are temperature 97.7, afebrile, pulse is 97, respiration 24, blood pressure 105/70. HEENT: Normocephalic, atraumatic. NECK: Supple. Chest equal expansion bilaterally. Lungs reveal wheezing and scattered in the lower castillo. Heart is tachy, regular. ABDOMEN: Soft. Extremities reveal 1+ edema. Skin: Few bruises, no petechiae. LABORATORY DATA: WBC of 2.9, hemoglobin 8.8, hematocrit 27.0, platelets are 51. IMPRESSION: 1. Pancytopenia. There were premature cells in the peripheral blood. This is suspicious for a bone marrow pathology. 2. Multiple comorbidities including recent lower extremity fracture which required surgery. RECOMMENDATION: 1. Continue to monitor blood count. 2. The plan is to proceed with bone marrow evaluation next week once his medical condition permits. 3. Given his high risk of deep venous thrombosis it is okay to start the patient on low-molecular weight heparin as long as platelet count are above 50 K and as long as there is no evidence to suggest any clinical evidence of blood loss. MMODL / IJN: [id number] /
[2017-10-26 17:09] LABS: Glucose,Whole Blood 280 mg/dL (75-99)
[2017-10-26] MEDS ORDERED: HYDROmorphone 1 MG/ML 1 ML SYRINGE IVP PRN (19:53)
[2017-10-26] MEDS: HYDROmorphone 1 MG/ML 1 ML SYRINGE IVP PRN ×2 (20:07→23:27)
[2017-10-26 21:11] LABS: Glucose,Whole Blood 333 mg/dL (75-99)
[2017-10-26] MEDS: MONTELUKAST 10 MG TAB PO SCH (22:03)
[2017-10-26] MEDS: SENNOSIDES-DOCUSATE SODIUM 1 EACH TAB PO SCH (22:13)
[2017-10-26 23:15] LABS: Anisocytosis Moderate; HCT 25.5 % (39.0-53.0); HGB 8.1 gm/dL (13.0-17.5); Hypochromasia Slight; MCH 30.5 pg (25.0-35.0); MCV 95.3 fL (80.0-100.0); Macrocytosis Slight; Mean Platelet Volume 13.4; RBC 2.67 m/uL (4.30-5.90); RDW 21.1 % (11.5-15.5); WBC 2.1 k/uL (3.8-10.6)
[2017-10-26 23:35] LABS: Glucose,Whole Blood 314 mg/dL (75-99)
[2017-10-26 23:48] LABS: Platelet Count 31 k/uL (150-450)
[2017-10-27] MEDS ORDERED: ALPRAZolam 0.5 MG TAB PO PRN (00:18)
[2017-10-27 00:23] LABS: Anion Gap 15 mmol/L; Blood Urea Nitrogen 67 mg/dL (9-20); Calcium 8.3 mg/dL (8.4-10.2); Carbon Dioxide 18 mmol/L (22-30); Chloride 90 mmol/L (98-107); Glucose 256 mg/dL (74-99); Potassium 5.2 mmol/L (3.5-5.1); Sodium 123 mmol/L (137-145)
[2017-10-27 00:24] LABS: Band Neutrophils % 25 %; Eosinophils # (M) 0.02 k/uL (0-0.7); Large Platelets Present; Lymphocytes # (M) 0.76 k/uL (1.0-4.8); Metamyelocytes # (M) 0.13 k/uL (0); Metamyelocytes % 6 %; Monocytes # (M) 0.17 k/uL (0-1.0); Myelocytes # (M) 0.04 k/uL (0); Myelocytes % 2 %; Neutrophils % (M) 25 %; Nucleated Red Blood Cells 1 /100 WBC (0-0); Poikilocytosis (M) Present; Polychromasia Present; Total Cells Counted 200
[2017-10-27 00:49] LABS: Glucose,Whole Blood 258 mg/dL (75-99)
[2017-10-27] MEDS ORDERED: IPRATROPIUM-ALBUTEROL 3 ML NEB INHALATION PRN (01:34)
[2017-10-27] MEDS: IPRATROPIUM-ALBUTEROL 3 ML NEB INHALATION SCH ×5 (01:40→19:18)
[2017-10-27 02:21] LABS: Glucose,Whole Blood 267 mg/dL (75-99)
[2017-10-27 02:21] LABS: ABG Base Excess -7.7 mmol/L; ABG HCO3 15 mmol/L (21-25); ABG PCO2 22 mmHg (35-45); ABG PH 7.47 (7.35-7.45); ABG PO2 135 mmHg (83-108); ABG TCO2 16 mmol/L (19-24)
[2017-10-27] MEDS: guaiFENesin-DM 600/30MG 1 EACH TAB.ER.12H PO SCH ×3 (02:43→20:03)
--- NOTE | 2017-10-27 02:55 | XR ---
EXAM: XR Chest, 1 View CLINICAL HISTORY: Reason: sob TECHNIQUE: Frontal view of the chest. COMPARISON: 10/26/17 IMPRESSION: Unchanged right lower lobe consolidation and effusion compared to the study from earlier today.
[2017-10-27] MEDS ORDERED: VANCOMYCIN IV PER PHARMACY 1 EACH MISC MISCELLANE PRN (03:39)
[2017-10-27] MEDS ORDERED: VANCOMYCIN 1,750 MG in SODIUM CHLORIDE 0.9% 250 ML IVPB SCH ×2 (04:00→16:00)
[2017-10-27 04:33] LABS: Anisocytosis Moderate; HCT 24.8 % (39.0-53.0); HGB 7.7 gm/dL (13.0-17.5); MCH 29.7 pg (25.0-35.0); MCHC 31.1 g/dL (31.0-37.0); MCV 95.4 fL (80.0-100.0); Macrocytosis Slight; Mean Platelet Volume 14.8; RDW 23.2 % (11.5-15.5)
[2017-10-27] MEDS: HYDROmorphone 1 MG/ML 1 ML SYRINGE IVP PRN ×3 (04:37→15:16)
[2017-10-27 04:40] LABS: Platelet Count 29 k/uL (150-450); WBC 1.7 k/uL (3.8-10.6)
[2017-10-27 04:56] LABS: Anion Gap 13 mmol/L; Blood Urea Nitrogen 71 mg/dL (9-20); Calcium 8.5 mg/dL (8.4-10.2); Carbon Dioxide 18 mmol/L (22-30); Chloride 91 mmol/L (98-107); Glucose 236 mg/dL (74-99); Magnesium 2.3 mg/dL (1.6-2.3); Phosphorus 4.5 mg/dL (2.5-4.5); Sodium 122 mmol/L (137-145)
[2017-10-27 04:57] LABS: Potassium 5.6 mmol/L (3.5-5.1)
[2017-10-27 05:47] LABS: Band Neutrophils % 28 %; Large Platelets Present; Lymphocytes # (M) 0.58 k/uL (1.0-4.8); Metamyelocytes # (M) 0.09 k/uL (0); Metamyelocytes % 5 %; Monocytes # (M) 0.09 k/uL (0-1.0); Myelocytes # (M) 0.02 k/uL (0); Myelocytes % 1 %; Neutrophils % (M) 29 %; Nucleated Red Blood Cells 2 /100 WBC (0-0); Poikilocytosis (M) Present; Polychromasia Present; Total Cells Counted 200
[2017-10-27] MEDS: methylPREDNISolone SOD SUCCI 125 MG/2 ML VIAL IV SCH ×4 (05:52→23:09)
[2017-10-27] MEDS: BUDESONIDE 0.5 MG/2 ML NEBU INHALATION SCH ×2 (05:56→19:18)
[2017-10-27 07:40] LABS: Glucose,Whole Blood 307 mg/dL (75-99)
[2017-10-27] MEDS: FUROSEMIDE 10 MG/ML 4 ML VIAL IV SCH (10:07)
[2017-10-27] MEDS: INSULIN ASPART 100 UNIT/ML 1 ML 10 ML VIAL SQ SCH ×4 (10:20→23:08)
[2017-10-27] MEDS: ATORVASTATIN 20 MG TAB PO SCH (10:24)
[2017-10-27] MEDS: CITALOPRAM HYDROBROMIDE 20 MG TAB PO SCH (10:24)
[2017-10-27] MEDS: GEMFIBROZIL 600 MG TAB PO SCH ×2 (10:24→13:53)
[2017-10-27] MEDS: CYANOCOBALAMIN 1,000 MCG/ML 1 ML VIAL IM SCH (10:24)
[2017-10-27] MEDS: ENOXAPARIN 30 MG/0.3 ML SYRINGE SQ SCH (10:25)
[2017-10-27] MEDS: metFORMIN 500 MG TAB PO SCH (10:26)
[2017-10-27] MEDS: NICOTINE 21MG/24HR PATCH TRANSDERM SCH (10:26)
[2017-10-27] MEDS: PREGABALIN 75 MG CAP PO SCH ×2 (10:26→20:04)
[2017-10-27] MEDS: PANTOPRAZOLE 40 MG TABLET PO SCH (10:27)
[2017-10-27] MEDS: TAMSULOSIN 0.4 MG CAP.ER.24H PO SCH (10:27)
[2017-10-27] MEDS: FILGRASTIM-SNDZ 300 MCG/0.5 ML SYRINGE SQ SCH (10:37)
--- NOTE | 2017-10-27 10:52 | P.NPCON ---
History of Present Illness - Reason for Consult Consult date: 10/27/17 acute renal failure, hyponatremia - Chief Complaint Acute kidney injury and hyponatremia - History of Present Illness This is a 71-year-old male seen in consultation because of acute kidney injury and hyponatremia. Is admitted with difficulty breathing, significant new onset of anemia and pancytopenia and was found to have a fracture of his femur and underwent surgery for an open reduction internal fixation dated 10/25/2017. His sodium was 133 on admission with a creatinine of 0.8, sodium went down to 128 on 10/25/2017 one day prior to surgery. Further his creatinine which was 0.8 on admission and went up to 1 on 10/25/2017 a day before surgery and continues to go up to 1.4 as of this morning. He has been diuresed and has good urine output. He is currently extremely weak and barely able to open eyes and respond to questions and commands. Is somewhat pale. He is currently on nasal cannula O2. Past history significant for history of lung cancer May 2016 underwent right lobectomy chemotherapy and was deemed to be in remission. He is known with kidney stones the past, diabetes approximate 1 year card he myopathy ejection fraction in the 45% range AICD. He continues to smoke. Past Medical History Past Medical History: Cancer, Diabetes Mellitus, GERD/Reflux, Hyperlipidemia, Hypertension, Renal Disease Additional Past Medical History / Comment(s): R sided LUNG CA, cardiomyopathy with AICD, STATES WAS TOLD HAD KIDNEY STONES IN PAST, FREQUENT SINUSITIS, IDDM diagnosed within the past year, History of Any Multi-Drug Resistant Organisms: None Reported Past Surgical History: AICD, Orthopedic Surgery Additional Past Surgical History / Comment(s): 06/04/16 Robotic assisted R thoracoscopy, R upper lobectomy, mediastinal lymph node disection, cryoablation intercostal nerves 3-7. Other surgical hx: AICD, DFT, RT SHOULDER SX for dislocation, AICHA CATARACTS, bilateral lasik eye surgery, testicular surgery, Past Anesthesia/Blood Transfusion Reactions: No Reported Reaction Type of Cardiac Device: AICD Device Placement Date:: 2005 Aphria Past Psychological History: Anxiety Additional Psychological History / Comment(s): Pt currently resides with son. He is independent. He drives. Smoking Status: Current every day smoker Past Alcohol Use History: None Reported Additional Past Alcohol Use History / Comment(s): SMOKES 1 PPD SINCE AGE OF 17 OR YOUNGER Past Drug Use History: None Reported - Past Family History Father Family Medical History: Cancer Additional Family Medical History / Comment(s): Father of lung cancer in his 80's Mother Family Medical History: Myocardial Infarction (AK) Additional Family Medical History / Comment(s): Mother of AK in her 80's Medications and Allergies Home Medications Medication Instructions Recorded Confirmed Type Aspirin [Adult Low Dose Aspirin EC] 81 mg PO DAILY 01/06/16 10/24/17 History Carvedilol 6.25 mg PO BID 01/06/16 10/24/17 History Citalopram Hydrobromide [CeleXA] 40 mg PO DAILY 10/21/17 10/24/17 History Gemfibrozil [Lopid] 600 mg PO AC-BID 10/21/17 10/24/17 History Mexiletine [Mexitil] 150 mg PO DAILY 10/21/17 10/24/17 History Omeprazole 40 mg PO DAILY 10/21/17 10/24/17 History Potassium Chloride ER [K-Dur 10] 10 meq PO DAILY 10/21/17 10/24/17 History Pregabalin [Lyrica] 75 mg PO BID 10/21/17 10/24/17 History Rosuvastatin [Crestor] 10 mg PO DAILY 10/21/17 10/24/17 History Saw [place] 450mg 900 mg PO BID 10/21/17 10/24/17 History Tamsulosin [Flomax] 0.4 mg PO DAILY 10/21/17 10/24/17 History guaiFENesin-DM 600/30MG [Mucinex 1 each PO Q12HR 10/21/17 10/24/17 History Dm] metFORMIN HCL 1,000 mg PO BID 10/21/17 10/24/17 History Allergies Allergy/AdvReac Type Severity Reaction Status Date / Time No Known Allergies Allergy Verified 10/24/17 14:50 Physical Exam Vitals: Vital Signs Temp Pulse Pulse Pulse Resp BP BP 10/27/17 07:00 81 25 H 94/70 10/27/17 06:09 93 10/27/17 06:00 85 26 H 117/81 10/27/17 05:58 92 10/27/17 05:00 86 24 120/60 10/27/17 04:00 97.9 F 106 H 24 103/59 10/27/17 03:00 86 20 91/52 10/27/17 02:20 97.6 F 71 24 93/63 10/27/17 01:56 98 10/27/17 01:40 71 10/27/17 00:00 97.9 F 88 86 26 H 124/65 10/26/17 20:00 97.9 F 88 88 22 112/65 10/26/17 19:58 115 H 10/26/17 19:44 84 10/26/17 15:44 90 10/26/17 15:43 97.4 F L 99 97 24 92/70 10/26/17 15:31 88 10/26/17 12:01 92 10/26/17 12:00 97 F L 97 97 24 105/70 10/26/17 11:55 90 Pulse Ox 10/27/17 07:00 100 10/27/17 06:09 10/27/17 06:00 100 10/27/17 05:58 10/27/17 05:00 99 10/27/17 04:00 100 10/27/17 03:00 100 10/27/17 02:20 98 10/27/17 01:56 10/27/17 01:40 10/27/17 00:00 100 10/26/17 20:00 100 10/26/17 19:58 10/26/17 19:44 10/26/17 15:44 10/26/17 15:43 100 10/26/17 15:31 10/26/17 12:01 10/26/17 12:00 99 10/26/17 11:55 Intake and Output 10/26/17 10/27/17 10/27/17 22:59 06:59 14:59 Intake Total 660 340 Output Total 1300 450 Balance -640 -110 Intake: Oral 660 340 Output: Urine 1300 450 Other: Voiding Method Indwelling Catheter Indwelling Catheter Weight 107.5 kg On examination he is extremely weak and barely able to open eyes and respond to questions. HEENT exam no JVP lymphadenopathy thyromegaly no carotid bruit neck is supple no facial asymmetry Lungs are significant for bilateral fine crackles with poor air entry bilaterally There is some bronchial breath sounds on the left base. Heart sounds are unremarkable except he has irregular heartbeat and likely has atrial fibrillation. Abdomen soft nontender there's probably is splenomegaly as there is an epigastric possible mass although CAT scans done recently have not shown he sets mass dated July 2017. Extremity exam reveals minimal to mild edema Neurologically extremely weak. Results - Lab Results Most recent lab results ABG pH 7.47 (7.35-7.45) H 10/27/17 02:18 ABG pCO2 22 mmHg (35-45) L 10/27/17 02:18 ABG pO2 135 mmHg (83-108) H 10/27/17 02:18 ABG HCO3 15 mmol/L (21-25) L 10/27/17 02:18 ABG O2 Saturation 99.0 % (94-97) H 10/27/17 02:18 Calcium 8.5 mg/dL (8.4-10.2) 10/27/17 04:00 Phosphorus 4.5 mg/dL (2.5-4.5) 10/27/17 04:00 Magnesium 2.3 mg/dL (1.6-2.3) 10/27/17 04:00 10/27/17 04:06 10/27/17 04:00 Assessment and Plan Assessment: Impression. 1. Acute kidney injury secondary to prerenal. He seems to be in congestive heart failure and has been diuresed appropriately with his creatinine has gone up and he become hyponatremic. Ejection fraction is 40-45% dated 10/26/2017 yesterday. Whether there is an element of intravascular volume depletion is the other possibility to explain this worsening with diuresis. His BNP is somewhat high at 8360 as of yesterday. 2. Hyponatremia secondary to prerenal state again the same suspicion that this is congestive heart failure although with good diuresis the response has been worsening of hyponatremia. Some element of this is from high blood sugar which is in the 300 range. 3. Pancytopenia likely related to his lung cancer or some myelodysplastic syndrome. 4. Severe anemia possible some of it is from bleeding in the site of his fracture on the left femur. 5. Status post open reduction internal fixation 10/26/2017 for fracture left supple trochanteric femur. 6. Extreme weakness and not clear as to etiology. 7. Squamous cell CA of the lung right side with lobectomy 2016 and chemotherapy for one year supposedly in remission. 8. Thoracic aortic injury some increasing inside 4.5 cm. Recommendation. 1. Will hold Lasix. 2. Obtain urinalysis. 3. Discontinue metformin because of the risk of lactic acidosis. 4. Discontinue any nephrotoxic medication including the vancomycin and she will alternate drugs. Her graft 5. Reduce the Coreg because of the pressure being somewhat marginal. 5. Redo BNP. 6. Because the shortness of breath and possibility of this being unrelated to her edema but other causes such as pulmonary embolism needs to be excluded. Thank you for this consultation. We will continue to follow closely.
--- NOTE | 2017-10-27 10:53 | P.PN ---
Subjective Progress Note Date: 10/27/17 Principal diagnosis: Left hip/Femur Fracture Patient is 71 yo male seen at bedside this morning. He is 3 days postop from left sub/peritrochanteric femur fracture repair/stabilization with a long IT gamma nail and intamedullary hip screw. He has multiple medical issues is and is being managed by medicine. He does not communicate much this morning. He does not appear to be in acute distress. Objective - Vital Signs Vital signs: Vital Signs Temp 97.9 F 10/27/17 04:00 Pulse 81 10/27/17 07:00 Resp 25 H 10/27/17 07:00 BP 94/70 10/27/17 07:00 Pulse Ox 100 10/27/17 07:00 Intake & Output 10/26/17 10/27/17 10/27/17 18:59 06:59 18:59 Intake Total 616 640 Output Total 1300 450 Balance -684 190 Weight 107.5 kg Intake: Intake, IV Titration 20 Amount Sodium Chloride 0.9% 1, 20 000 ml @ 50 mls/hr IV . Q20H [facility] Rx#:[id number] Oral 596 640 Output: Urine 1300 450 Other: Voiding Method Indwelling Catheter Indwelling Catheter - Exam Inspection of the left lower extremity shows a benign surgical wound. There is no active bleeding or drainage. Neurovascular status appears to be grossly intact with motor and sensation throughout the left lower extremity. Calf is soft and nontender. 2+ dorsalis pedis pulse and less than 2 second cap refill is present. - Constitutional General appearance: Present: no acute distress - Labs CBC & Chem 7: 10/27/17 04:06 10/27/17 04:00 Labs: Abnormal Lab Results - Last 24 Hours (Table) 10/26/17 10/26/17 10/26/17 Range/Units 11:35 16:38 21:10 WBC (3.8-10.6) k/uL RBC (4.30-5.90) m/uL Hgb (13.0-17.5) gm/dL Hct (39.0-53.0) % RDW (11.5-15.5) % Plt Count (150-450) k/uL Neutrophils # (Manual) (1.3-7.7) k/uL Lymphocytes # (Manual) (1.0-4.8) k/uL Metamyelocytes # (Man) (0) k/uL Myelocytes # (Manual) (0) k/uL Nucleated RBCs (0-0) /100 WBC ABG pH (7.35-7.45) ABG pCO2 (35-45) mmHg ABG pO2 (83-108) mmHg ABG HCO3 (21-25) mmol/L ABG Total CO2 (19-24) mmol/L ABG O2 Saturation (94-97) % Sodium (137-145) mmol/L Potassium (3.5-5.1) mmol/L Chloride (98-107) mmol/L Carbon Dioxide (22-30) mmol/L BUN (9-20) mg/dL Creatinine (0.66-1.25) mg/dL Glucose (74-99) mg/dL POC Glucose (mg/dL) 238 H 280 H 333 H (75-99) mg/dL Calcium (8.4-10.2) mg/dL 10/26/17 10/26/17 10/26/17 Range/Units 22:47 23:33 23:55 WBC 2.1 L (3.8-10.6) k/uL RBC 2.67 L (4.30-5.90) m/uL Hgb 8.1 L (13.0-17.5) gm/dL Hct 25.5 L (39.0-53.0) % RDW 21.1 H (11.5-15.5) % Plt Count 31 L* (150-450) k/uL Neutrophils # (Manual) 1.00 L (1.3-7.7) k/uL Lymphocytes # (Manual) 0.76 L (1.0-4.8) k/uL Metamyelocytes # (Man) 0.13 H (0) k/uL Myelocytes # (Manual) 0.04 H (0) k/uL Nucleated RBCs 1 H (0-0) /100 WBC ABG pH (7.35-7.45) ABG pCO2 (35-45) mmHg ABG pO2 (83-108) mmHg ABG HCO3 (21-25) mmol/L ABG Total CO2 (19-24) mmol/L ABG O2 Saturation (94-97) % Sodium 123 L (137-145) mmol/L Potassium 5.2 H (3.5-5.1) mmol/L Chloride 90 L (98-107) mmol/L Carbon Dioxide 18 L (22-30) mmol/L BUN 67 H (9-20) mg/dL Creatinine 1.40 H (0.66-1.25) mg/dL Glucose 256 H (74-99) mg/dL POC Glucose (mg/dL) 314 H (75-99) mg/dL Calcium 8.3 L (8.4-10.2) mg/dL 10/27/17 10/27/17 10/27/17 Range/Units 00:48 02:14 02:18 WBC (3.8-10.6) k/uL RBC (4.30-5.90) m/uL Hgb (13.0-17.5) gm/dL Hct (39.0-53.0) % RDW (11.5-15.5) % Plt Count (150-450) k/uL Neutrophils # (Manual) (1.3-7.7) k/uL Lymphocytes # (Manual) (1.0-4.8) k/uL Metamyelocytes # (Man) (0) k/uL Myelocytes # (Manual) (0) k/uL Nucleated RBCs (0-0) /100 WBC ABG pH 7.47 H (7.35-7.45) ABG pCO2 22 L (35-45) mmHg ABG pO2 135 H (83-108) mmHg ABG HCO3 15 L (21-25) mmol/L ABG Total CO2 16 L (19-24) mmol/L ABG O2 Saturation 99.0 H (94-97) % Sodium (137-145) mmol/L Potassium (3.5-5.1) mmol/L Chloride (98-107) mmol/L Carbon Dioxide (22-30) mmol/L BUN (9-20) mg/dL Creatinine (0.66-1.25) mg/dL Glucose (74-99) mg/dL POC Glucose (mg/dL) 258 H 267 H (75-99) mg/dL Calcium (8.4-10.2) mg/dL 10/27/17 10/27/17 10/27/17 Range/Units 04:00 04:06 07:38 WBC 1.7 L* (3.8-10.6) k/uL RBC 2.60 L (4.30-5.90) m/uL Hgb 7.7 L (13.0-17.5) gm/dL Hct 24.8 L (39.0-53.0) % RDW 23.2 H (11.5-15.5) % Plt Count 29 L* (150-450) k/uL Neutrophils # (Manual) 0.90 L (1.3-7.7) k/uL Lymphocytes # (Manual) 0.58 L (1.0-4.8) k/uL Metamyelocytes # (Man) 0.09 H (0) k/uL Myelocytes # (Manual) 0.02 H (0) k/uL Nucleated RBCs 2 H (0-0) /100 WBC ABG pH (7.35-7.45) ABG pCO2 (35-45) mmHg ABG pO2 (83-108) mmHg ABG HCO3 (21-25) mmol/L ABG Total CO2 (19-24) mmol/L ABG O2 Saturation (94-97) % Sodium 122 L (137-145) mmol/L Potassium 5.6 H (3.5-5.1) mmol/L Chloride 91 L (98-107) mmol/L Carbon Dioxide 18 L (22-30) mmol/L BUN 71 H (9-20) mg/dL Creatinine 1.41 H (0.66-1.25) mg/dL Glucose 236 H (74-99) mg/dL POC Glucose (mg/dL) 307 H (75-99) mg/dL Calcium (8.4-10.2) mg/dL Microbiology - Last 24 Hours (Table) 10/26/17 08:52 Blood Culture - Preliminary Blood Assessment and Plan (1) Closed left hip fracture Narrative/Plan: He is to continue with routine postop orthopedic protocol including pain management, wound care, DVT prophylaxis, physical therapy where he is nonweightbearing with the left lower extremity, and medical management. We will continue to follow make further recommendations as appropriate.. Current Visit: Yes Status: Acute Priority: Medium Code(s): S72.002A - FRACTURE OF UNSP PART OF NECK OF LEFT FEMUR, INIT SNOMED Code(s): 945247232 Time with Patient: Less than 30
--- NOTE | 2017-10-27 11:05 | P.PN ---
Subjective Progress Note Date: 10/27/17 Principal diagnosis: AECOPD, pneumonia Patient seen in the ICU with nursing staff and family at bedside. The patient was transferred overnight due to respiratory distress. He was placed on BiPAP overnight. The patient is currently on nasal cannula. He is complaining of some shortness of breath. He is very weak and confused. His sodium is 122. He has been receiving Lasix. This is discussed with the family today. The Lasix will be held and she will be started on gentle IV fluid hydration. His antibiotics will be adjusted for aspiration pneumonia. Objective - Vital Signs Vital signs: Vital Signs Temp 97.9 F 10/27/17 04:00 Pulse 81 10/27/17 07:00 Resp 25 H 10/27/17 07:00 BP 94/70 10/27/17 07:00 Pulse Ox 100 10/27/17 07:00 Intake & Output 10/26/17 10/27/17 10/27/17 18:59 06:59 18:59 Intake Total 616 640 Output Total 1300 450 Balance -684 190 Weight 107.5 kg Intake: Intake, IV Titration 20 Amount Sodium Chloride 0.9% 1, 20 000 ml @ 50 mls/hr IV . Q20H [facility] Rx#:[id number] Oral 596 640 Output: Urine 1300 450 Other: Voiding Method Indwelling Catheter Indwelling Catheter - Exam Gen.: Patient is alert, confused, obese Cardiovascular: Irregular rate and rhythm, S1/S2 Lungs: Coarse breath sounds bilaterally Abdomen: Soft nontender nondistended positive bowel sounds Extremities: Trace edema - Labs CBC & Chem 7: 10/27/17 04:06 10/27/17 04:00 Labs: Abnormal Lab Results - Last 24 Hours (Table) 10/26/17 10/26/17 10/26/17 Range/Units 11:35 16:38 21:10 WBC (3.8-10.6) k/uL RBC (4.30-5.90) m/uL Hgb (13.0-17.5) gm/dL Hct (39.0-53.0) % RDW (11.5-15.5) % Plt Count (150-450) k/uL Neutrophils # (Manual) (1.3-7.7) k/uL Lymphocytes # (Manual) (1.0-4.8) k/uL Metamyelocytes # (Man) (0) k/uL Myelocytes # (Manual) (0) k/uL Nucleated RBCs (0-0) /100 WBC ABG pH (7.35-7.45) ABG pCO2 (35-45) mmHg ABG pO2 (83-108) mmHg ABG HCO3 (21-25) mmol/L ABG Total CO2 (19-24) mmol/L ABG O2 Saturation (94-97) % Sodium (137-145) mmol/L Potassium (3.5-5.1) mmol/L Chloride (98-107) mmol/L Carbon Dioxide (22-30) mmol/L BUN (9-20) mg/dL Creatinine (0.66-1.25) mg/dL Glucose (74-99) mg/dL POC Glucose (mg/dL) 238 H 280 H 333 H (75-99) mg/dL Calcium (8.4-10.2) mg/dL 10/26/17 10/26/17 10/26/17 Range/Units 22:47 23:33 23:55 WBC 2.1 L (3.8-10.6) k/uL RBC 2.67 L (4.30-5.90) m/uL Hgb 8.1 L (13.0-17.5) gm/dL Hct 25.5 L (39.0-53.0) % RDW 21.1 H (11.5-15.5) % Plt Count 31 L* (150-450) k/uL Neutrophils # (Manual) 1.00 L (1.3-7.7) k/uL Lymphocytes # (Manual) 0.76 L (1.0-4.8) k/uL Metamyelocytes # (Man) 0.13 H (0) k/uL Myelocytes # (Manual) 0.04 H (0) k/uL Nucleated RBCs 1 H (0-0) /100 WBC ABG pH (7.35-7.45) ABG pCO2 (35-45) mmHg ABG pO2 (83-108) mmHg ABG HCO3 (21-25) mmol/L ABG Total CO2 (19-24) mmol/L ABG O2 Saturation (94-97) % Sodium 123 L (137-145) mmol/L Potassium 5.2 H (3.5-5.1) mmol/L Chloride 90 L (98-107) mmol/L Carbon Dioxide 18 L (22-30) mmol/L BUN 67 H (9-20) mg/dL Creatinine 1.40 H (0.66-1.25) mg/dL Glucose 256 H (74-99) mg/dL POC Glucose (mg/dL) 314 H (75-99) mg/dL Calcium 8.3 L (8.4-10.2) mg/dL 10/27/17 10/27/17 10/27/17 Range/Units 00:48 02:14 02:18 WBC (3.8-10.6) k/uL RBC (4.30-5.90) m/uL Hgb (13.0-17.5) gm/dL Hct (39.0-53.0) % RDW (11.5-15.5) % Plt Count (150-450) k/uL Neutrophils # (Manual) (1.3-7.7) k/uL Lymphocytes # (Manual) (1.0-4.8) k/uL Metamyelocytes # (Man) (0) k/uL Myelocytes # (Manual) (0) k/uL Nucleated RBCs (0-0) /100 WBC ABG pH 7.47 H (7.35-7.45) ABG pCO2 22 L (35-45) mmHg ABG pO2 135 H (83-108) mmHg ABG HCO3 15 L (21-25) mmol/L ABG Total CO2 16 L (19-24) mmol/L ABG O2 Saturation 99.0 H (94-97) % Sodium (137-145) mmol/L Potassium (3.5-5.1) mmol/L Chloride (98-107) mmol/L Carbon Dioxide (22-30) mmol/L BUN (9-20) mg/dL Creatinine (0.66-1.25) mg/dL Glucose (74-99) mg/dL POC Glucose (mg/dL) 258 H 267 H (75-99) mg/dL Calcium (8.4-10.2) mg/dL 10/27/17 10/27/17 10/27/17 Range/Units 04:00 04:06 07:38 WBC 1.7 L* (3.8-10.6) k/uL RBC 2.60 L (4.30-5.90) m/uL Hgb 7.7 L (13.0-17.5) gm/dL Hct 24.8 L (39.0-53.0) % RDW 23.2 H (11.5-15.5) % Plt Count 29 L* (150-450) k/uL Neutrophils # (Manual) 0.90 L (1.3-7.7) k/uL Lymphocytes # (Manual) 0.58 L (1.0-4.8) k/uL Metamyelocytes # (Man) 0.09 H (0) k/uL Myelocytes # (Manual) 0.02 H (0) k/uL Nucleated RBCs 2 H (0-0) /100 WBC ABG pH (7.35-7.45) ABG pCO2 (35-45) mmHg ABG pO2 (83-108) mmHg ABG HCO3 (21-25) mmol/L ABG Total CO2 (19-24) mmol/L ABG O2 Saturation (94-97) % Sodium 122 L (137-145) mmol/L Potassium 5.6 H (3.5-5.1) mmol/L Chloride 91 L (98-107) mmol/L Carbon Dioxide 18 L (22-30) mmol/L BUN 71 H (9-20) mg/dL Creatinine 1.41 H (0.66-1.25) mg/dL Glucose 236 H (74-99) mg/dL POC Glucose (mg/dL) 307 H (75-99) mg/dL Calcium (8.4-10.2) mg/dL Microbiology - Last 24 Hours (Table) 10/26/17 08:52 Blood Culture - Preliminary Blood Assessment and Plan Assessment: Acute hypoxic respiratory failure Aspiration pneumonia, RLL s/p fall with right hip fracture, s/p repair Acute exacerbation of COPD Symptomatic anemia Bacteremia: G + cocci in clusters Encephalopathy Cardiomyopathy Pancytopenia Tobacco abuse History of squamous cell lung cancer, question recurrent Chronic right pleural effusion Mediastinal lymphadenopathy GERD Status post right thoracotomy and right upper lobectomy Diabetes mellitus type 2 Obesity No evidence of pulmonary edema on CXR O2 to maintain saturation greater than or equal to 90% Heme/onc recommendations appreciated - plan for BM biopsy once patient stabilizes, Lovenox once PLT > 50 Solu-Medrol taper Bronchodilators and Pulmicort Smoking cessation IVF 0.9 NS @ 50 cc/hr Hold Lasix Percussion and chest PT Sputum culture Consult nephrology Hold metformin, Ambien, Xanax, Lovenox, [place], Nicotine TD Consult DIRECTOR SUP[employer]Y Lower extremity dopplers Seroquel Qhs and Ativan PRN Dilaudid PRN ABX: Zosyn and Vanco Consult ID Josefina Repeat CT chest as an outpatient May need biopsy pending CT report results. Pulmonary hygiene and incentive spirometry Smoking cessation is highly recommended GI and DVT prophylaxis: SCD's due to low PLT, Protonix Family is at bedside and updated to plan of care. If patient's symptoms don't improve with less invasive measures, might consider bronchoscopy in the next 24- 48 hours CCT 52 min
[2017-10-27 12:26] LABS: Glucose,Whole Blood 265 mg/dL (75-99)
--- NOTE | 2017-10-27 13:22 | US ---
EXAMINATION TYPE: US venous doppler duplex LE BI DATE OF EXAM: 10/27/2017 1:09 PM COMPARISON: NONE CLINICAL HISTORY: rule out DVT. Patient had left knee surgery about 5 days ago. Swelling. Patient is currently taking blood thinners. Difficult exam as test was done portable in the ICU- patient unable to move easily SIDE PERFORMED: Bilateral TECHNIQUE: The lower extremity deep venous system is examined utilizing real time linear array sonog chayito with graded compression, doppler sonography and color-flow sonography. VESSELS IMAGED: External Iliac Vein (EIV) Common Femoral Vein Deep Femoral Vein Greater Saphenous Vein * Femoral Vein Popliteal Vein Small Saphenous Vein * Proximal Calf Veins (* superficial vessels) Right Leg: Appears negative for DVT Left Leg: Appears negative for DVT IMPRESSION: Negative exam. No evidence of deep venous thrombosis in both legs.
--- NOTE | 2017-10-27 13:23 | PN ---
PROGRESS NOTE This patient was transferred to the intensive care unit last night, because of the acute respiratory distress. The patient is comfortable at present. He responds to the questions minimally but no acute respiratory distress. Now is noted. Chest x-ray suggestive of worsening heart failure. Arterial blood gases showed pH of 7.47, pCO2 was 32, PO2 was 135, sodium is 122 and BUN is 71, creatinine 1.4. Chest x-ray, again reviewed does not show any significant failure though his BNP was elevated. Overall left ventricular systolic function is normal. First and second heart sounds are normal. Lungs reveal bilateral scattered wheezes. IMPRESSION: 1. Acute respiratory distress due to developing pneumonia status post recent surgery. 2. Severe anemia. I discussed patient's condition with marketing writer. IV antibiotics will be continued. Lasix was discontinued. Nephrology consultation is also requested. MMODL / IJN: [id number] /
--- NOTE | 2017-10-27 13:32 | US ---
EXAMINATION TYPE: US abdomen comp/pelvis limited DATE OF EXAM: 10/27/2017 COMPARISON: CT 08/06/2017 CLINICAL HISTORY: TAI and epigastric mass per order. History of Lung CA. Exam done portable in the I CU, difficult exam as patient could not move, roll, or take a deep breath in and hold EXAM MEASUREMENTS: Liver Length: 19.8 cm Gallbladder Wall: 0.8 cm CBD: 0.4 cm Spleen: 13.9 cm Right Kidney: 11.5 x 5.0 x 5.5 cm Left Kidney: 13.0 x 5.9 x 5.5 cm Pancreas: Tail obscured by bowel gas. No mass seen within visualized portions Liver: Enlarged, slightly nodular contour Gallbladder: Sludge and stones visualized. Wall is thickened with pericholecystic fluid visualized CBD: wnl as visualized, obscured by bowel gas Spleen: Enlarged Right Kidney: No hydronephrosis or masses seen Left Kidney: No hydronephrosis. Cystic area visualized measuring 1.2 x 1.0 x 1.1 cm Upper IVC: wnl Abd Aorta: Mid/distal portion limited evaluation due to overlying bowel gas. Atherosclerotic changes Bladder: Not distended due to quinn Bilateral Jets Seen No, bladder not distended. IMPRESSION: There are gallstones. There is irregular gallbladder mild wall thickening consistent some degree of cholecystitis. No evidence of renal obstruction. No mass was identified in the epigastrium ..
--- NOTE | 2017-10-27 13:41 | P.PN ---
Progress Note - Text Progress Note Date: 10/27/17 Case discussed with ID. Due to kidney injury, will discontinue Vancomycin and start Zyvox for Gram + cocci in blood.
[2017-10-27] MEDS: MEXILETINE 150 MG CAP PO SCH (13:51)
[2017-10-27] MEDS: SODIUM CHLORIDE 0.9% 1,000 ML IV SCH (13:51)
[2017-10-27] MEDS: MULTIVITAMINS, THERA 1 EACH TAB PO SCH (13:52)
[2017-10-27] MEDS: CARVEDILOL 3.125 MG TAB PO SCH (13:53)
[2017-10-27] MEDS: CARVEDILOL 6.25 MG TAB PO SCH (13:59)
[2017-10-27] MEDS ORDERED: DAPTOmycin IN 0.9% NACL 500 MG/10 ML SYRINGE IVP SCH (17:00)
--- NOTE | 2017-10-27 17:05 | PN ---
PROGRESS NOTE DATE OF SERVICE: October 27, 2017. CHIEF COMPLAINT: Short of breath. Eavn is seen today as a followup. He was transferred to the intensive care unit because of worsening dyspnea, agitation and confusion. He is currently in the intensive care unit and he is less agitated, but remains significantly dyspneic and he is confused. His platelet count dropped down further today and Lovenox was discontinued and he was put on Zyvox for possible aspiration pneumonia. MEDICATIONS: Reviewed in his electronic medical record. PHYSICAL EXAMINATION: He is agitated, dyspnea, confused. His vital signs temperature 97.4 afebrile, respiration 26, pulse is 103, blood pressure 99/69. HEENT: Normocephalic, atraumatic. NECK: Supple. Chest coarse breath sounds bilaterally. LUNGS: Prolonged expiration in all castillo and there is decreased breath sounds in the right lower lobe. Extremities reveal trace edema. Skin reveals a few bruises, petechiae. RADIOGRAPHIC DATA: Chest x-ray from this morning revealed unchanged right lower lobe consolidation and effusion. He has a venous Doppler of his lower extremities of both legs and which was negative for deep venous thrombosis. LABORATORY DATA: WBC of 1.7, hemoglobin 7.7, hematocrit 24.5, platelets are 29. Sodium 122, potassium 5.7, chloride 91, CO2 is 18, BUN 71, creatinine 1.4. IMPRESSION: 1. Severe pancytopenia with premature circulating cells in his peripheral blood. This is concerning of bone marrow pathologies as well as advanced MDS or even leukemia. 2. Further drop in his platelet count today compared to yesterday. 3. Agitation and respiratory distress and multiple other comorbidities. RECOMMENDATION: 1. I agree with withholding the Lovenox at this point in time given his significant thrombocytopenia, although he remains at risk of thrombosis. 2. Consider changing Zyvox to N alternative antibiotics as Zyvox can cause significant thrombocytopenia. 3. The overall prognosis is very guarded. If the respiratory status improves, may consider a bone marrow evaluation. The above was discussed with the patient's sister at bedside and also discussed his care with the ICU nursing staff. SARAH / POLO: [id number] /
[2017-10-27 17:10] LABS: Glucose,Whole Blood 250 mg/dL (75-99)
[2017-10-27] MEDS: PIPERACILLIN-TAZOBACTAM 3.375 GM in DEXTROSE/WATER 1 50ML.BAG IVPB SCH ×2 (17:38→23:09)
[2017-10-27] MEDS: MORPHINE SULFATE 5 MG/ML SYRINGE IVP PRN (19:50)
[2017-10-27] MEDS: SENNOSIDES-DOCUSATE SODIUM 1 EACH TAB PO SCH (20:04)
[2017-10-27] MEDS: MONTELUKAST 10 MG TAB PO SCH (20:04)
[2017-10-27] MEDS: LORazepam 2 MG/ML INJ IV PRN (20:21)
[2017-10-27] MEDS ORDERED: QUEtiapine 25 MG TAB PO SCH (21:00)
[2017-10-27] MEDS ORDERED: LINEZOLID 600 MG in DEXTROSE/WATER 1 300ML.BAG IVPB SCH (21:00)
[2017-10-27 23:05] LABS: Glucose,Whole Blood 205 mg/dL (75-99)
[2017-10-28] MEDS: LORazepam 2 MG/ML INJ IV PRN (02:45)
[2017-10-28 04:14] LABS: ABG Base Excess -4.4 mmol/L; ABG HCO3 20 mmol/L (21-25); ABG PCO2 33 mmHg (35-45); ABG PO2 175 mmHg (83-108); ABG TCO2 21 mmol/L (19-24)
[2017-10-28] MEDS: ACETYLCYSTEINE 800 MG/4 ML VIAL INHALATION SCH ×2 (04:18→07:52)
--- NOTE | 2017-10-28 04:54 | XR ---
EXAM: XR Chest, 1 View CLINICAL HISTORY: Reason: sob TECHNIQUE: Frontal view of the chest. COMPARISON: 10/27/17 IMPRESSION: Unchanged right lower lobe infiltrate and pleural effusion.
[2017-10-28 05:09] LABS: Appearance,Urine Cloudy (Clear); Bacteria,Urine Rare /hpf; Bilirubin,Urine 1+ (Negative); Blood,Urine Small (Negative); Color,Urine Dark Yellow; Glucose,Urine (UA) Negative (Negative); Ketones,Urine Negative (Negative); Leukocyte Esterase,Urine Negative (Negative); Mucus,Urine Rare /hpf; Nitrite,Urine Negative (Negative); Protein,Urine Trace (Negative); RBC,Urine 14 /hpf (0-5); Specific Gravity,Urine 1.015 (1.001-1.035); Squamous Epithelial Cell,Urine <1 /hpf (0-4); WBC,Urine 4 /hpf (0-5)
[2017-10-28 05:26] LABS: Calcium 7.7 mg/dL (8.4-10.2); Magnesium 2.7 mg/dL (1.6-2.3); Phosphorus 5.5 mg/dL (2.5-4.5); Potassium 5.7 mmol/L (3.5-5.1)
[2017-10-28] MEDS: methylPREDNISolone SOD SUCCI 125 MG/2 ML VIAL IV SCH ×2 (06:25→11:39)
[2017-10-28] MEDS: SODIUM CHLORIDE 0.9% 1,000 ML IV SCH ×2 (06:42→10:26)
[2017-10-28 07:22] LABS: Anisocytosis Moderate; HCT 24.1 % (39.0-53.0); HGB 7.6 gm/dL (13.0-17.5); Hypochromasia Slight; MCH 30.5 pg (25.0-35.0); MCHC 31.3 g/dL (31.0-37.0); MCV 97.4 fL (80.0-100.0); Macrocytosis Slight; Mean Platelet Volume 16.4; RBC 2.48 m/uL (4.30-5.90); RDW 21.4 % (11.5-15.5)
[2017-10-28 07:23] LABS: Platelet Count 28 k/uL (150-450); WBC 1.9 k/uL (3.8-10.6)
[2017-10-28] MEDS: IPRATROPIUM-ALBUTEROL 3 ML NEB INHALATION SCH ×2 (07:30→11:19)
[2017-10-28] MEDS: BUDESONIDE 0.5 MG/2 ML NEBU INHALATION SCH (07:30)
[2017-10-28 07:51] LABS: Band Neutrophils % 3 %; Eosinophils # (M) 0.02 k/uL (0-0.7); Lymphocytes # (M) 0.53 k/uL (1.0-4.8); Monocytes # (M) 0.29 k/uL (0-1.0); Neutrophils % (M) 53 %; Nucleated Red Blood Cells 0 /100 WBC (0-0); Polychromasia Present; Total Cells Counted 100
[2017-10-28] MEDS: GEMFIBROZIL 600 MG TAB PO SCH (08:09)
[2017-10-28] MEDS: CARVEDILOL 3.125 MG TAB PO SCH (08:09)
[2017-10-28] MEDS: PANTOPRAZOLE 40 MG TABLET PO SCH (08:09)
[2017-10-28 08:10] LABS: Glucose,Whole Blood 228 mg/dL (75-99)
[2017-10-28] MEDS: PIPERACILLIN-TAZOBACTAM 3.375 GM in DEXTROSE/WATER 1 50ML.BAG IVPB SCH (08:10)
[2017-10-28] MEDS: CITALOPRAM HYDROBROMIDE 20 MG TAB PO SCH (08:13)
[2017-10-28] MEDS: INSULIN ASPART 100 UNIT/ML 1 ML 10 ML VIAL SQ SCH (08:13)
[2017-10-28] MEDS: PREGABALIN 75 MG CAP PO SCH (08:14)
[2017-10-28] MEDS: TAMSULOSIN 0.4 MG CAP.ER.24H PO SCH (08:14)
[2017-10-28] MEDS: guaiFENesin-DM 600/30MG 1 EACH TAB.ER.12H PO SCH (08:14)
[2017-10-28] MEDS: MEXILETINE 150 MG CAP PO SCH (08:14)
[2017-10-28] MEDS: CYANOCOBALAMIN 1,000 MCG/ML 1 ML VIAL IM SCH (08:37)
[2017-10-28] MEDS: FILGRASTIM-SNDZ 300 MCG/0.5 ML SYRINGE SQ SCH (08:46)
[2017-10-28] MEDS ORDERED: PANTOPRAZOLE 40 MG/10 ML VIAL IVP SCH (09:30)
--- NOTE | 2017-10-28 09:57 | PN ---
PROGRESS NOTE DATE OF SERVICE: 10/27/2017. REASON FOR FOLLOWUP: 1. Possible aspiration pneumonia. 2. Positive blood culture. INTERVAL HISTORY: I was asked to evaluate patient with concern for possible aspiration pneumonia and a positive blood culture to recommend his antibiotic therapy The patient is afebrile this morning. He did have some respiratory distress that required transfer to the ICU there is no clear history of for nausea vomiting or choking on the food No nausea, vomiting has been noticed. No diarrhea and not requiring any pressor support. The patient remains to be lethargic unable to provide any history. Most of the information obtained from review of the chart, talking with nursing staff as well as the family. REVIEW OF SYSTEMS: Could not be reliably obtained. SURGICAL HISTORY: Reviewed. PAST MEDICAL HISTORY: Reviewed. Current medications were reviewed EXAMINATION: Blood pressure 107/52 with a pulse of 84, temperature of 98. He is 100% on 3 L nasal cannula. General description is an elderly white male lying in bed in no distress. Respiratory system unlabored breathing. Decreased breath sounds at bases. No wheeze. Heart S1, S2, regular rate and rhythm. Abdomen soft. No tenderness. No rigidity. Extremities some trace edema in the feet. Skin examination: No rash or mass palpable. Neurologic: The patient is lethargic, sleepy. LABS: Hemoglobin 7.7, white count 1.7 with a BUN of 71, creatinine 1.41. Blood culture with gram-positive cocci. DIAGNOSTIC IMPRESSION AND PLAN: 1. Patient with admission to the ICU with difficulty breathing with a question of an aspiration pneumonia. For which the patient will continue on the Zosyn. 2. Positive blood culture with question of possible contamination or related to his pneumonia Daptomycin was added as nephrology recommended against use of vancomycin and patient is necessary cannot use the Zyvox. However, if the organism turns to be staph epi daptomycin will be discontinued. Family was present at bedside. Questions were answered. MMODL / IJN: [id number] / CONRAD
[2017-10-28] MEDS: MORPHINE SULFATE 5 MG/ML SYRINGE IVP PRN (10:01)
--- NOTE | 2017-10-28 10:43 | P.PN ---
Subjective Progress Note Date: 10/28/17 Principal diagnosis: Left hip/Femur Fracture Patient is 71 yo male seen at bedside this morning. He is 4 days postop from left sub/peritrochanteric femur fracture repair/stabilization with a long IT gamma nail and intamedullary hip screw. He has multiple medical issues and is being managed in the ICU for pneumonia and multiple medical problems. He does not communicate this morning. Objective - Vital Signs Vital signs: Vital Signs Temp 97.4 F L 10/28/17 08:00 Pulse 97 10/28/17 10:00 Resp 26 H 10/28/17 10:00 BP 103/64 10/28/17 10:00 Pulse Ox 99 10/28/17 10:00 Intake & Output 10/27/17 10/28/17 10/28/17 18:59 06:59 18:59 Intake Total 540 637.5 207.5 Output Total 1010 795 335 Balance -470 -157.5 -127.5 Weight 105.1 kg Intake: IV 157.5 Piperacillin-Tazobactam 3 37.5 .375 gm In Dextrose/Water 1 50ml.bag @ 12.5 mls/hr IVPB Q8HR [facility] Rx#: [id number] Sodium Chloride 0.9% 1, 120 000 ml @ 50 mls/hr IV . Q20H [facility] Rx#:[id number] Intake, IV Titration 540 637.5 50 Amount DAPTOmycin 650 mg In 50 Sodium Chloride 0.9% 50 ml @ 100 mls/hr IV Q24HR@ 1700 [facility] Rx#:[id number] Piperacillin-Tazobactam 3 50 37.5 .375 gm In Dextrose/Water 1 50ml.bag @ 12.5 mls/hr IVPB Q8HR [facility] Rx#: [id number] Sodium Chloride 0.9% 1, 440 600 50 000 ml @ 50 mls/hr IV . Q20H [facility] Rx#:[id number] Output: Urine 1010 795 335 Other: Voiding Method Indwelling Catheter Indwelling Catheter Indwelling Catheter - Exam Inspection of the left lower extremity shows a benign surgical wound. There is kasie in place with mild drainage as expected. There is no active bleeding or purulence.. Neurovascular status appears to be grossly intact with motor and sensation throughout the left lower extremity. Calf is soft and nontender. 2+ dorsalis pedis pulse and less than 2 second cap refill is present. - Labs CBC & Chem 7: 10/28/17 04:23 10/28/17 04:23 Labs: Abnormal Lab Results - Last 24 Hours (Table) 10/27/17 10/27/17 10/27/17 Range/Units 12:23 17:09 23:02 WBC (3.8-10.6) k/uL RBC (4.30-5.90) m/uL Hgb (13.0-17.5) gm/dL Hct (39.0-53.0) % RDW (11.5-15.5) % Plt Count (150-450) k/uL Neutrophils # (Manual) (1.3-7.7) k/uL Lymphocytes # (Manual) (1.0-4.8) k/uL ABG pCO2 (35-45) mmHg ABG pO2 (83-108) mmHg ABG HCO3 (21-25) mmol/L ABG O2 Saturation (94-97) % Sodium (137-145) mmol/L Potassium (3.5-5.1) mmol/L Chloride (98-107) mmol/L Carbon Dioxide (22-30) mmol/L BUN (9-20) mg/dL Creatinine (0.66-1.25) mg/dL Glucose (74-99) mg/dL POC Glucose (mg/dL) 265 H 250 H 205 H (75-99) mg/dL Calcium (8.4-10.2) mg/dL Phosphorus (2.5-4.5) mg/dL Magnesium (1.6-2.3) mg/dL Urine Protein (Negative) Urine Blood (Negative) Urine Bilirubin (Negative) Urine RBC (0-5) /hpf Urine Bacteria (None) /hpf Urine Mucus (None) /hpf 10/28/17 10/28/17 10/28/17 Range/Units 04:13 04:23 04:23 WBC 1.9 L* (3.8-10.6) k/uL RBC 2.48 L (4.30-5.90) m/uL Hgb 7.6 L (13.0-17.5) gm/dL Hct 24.1 L (39.0-53.0) % RDW 21.4 H (11.5-15.5) % Plt Count 28 L* (150-450) k/uL Neutrophils # (Manual) 1.00 L (1.3-7.7) k/uL Lymphocytes # (Manual) 0.53 L (1.0-4.8) k/uL ABG pCO2 33 L (35-45) mmHg ABG pO2 175 H (83-108) mmHg ABG HCO3 20 L (21-25) mmol/L ABG O2 Saturation 99.0 H (94-97) % Sodium 126 L (137-145) mmol/L Potassium 5.7 H (3.5-5.1) mmol/L Chloride 93 L (98-107) mmol/L Carbon Dioxide 19 L (22-30) mmol/L BUN 94 H* (9-20) mg/dL Creatinine 1.60 H (0.66-1.25) mg/dL Glucose 172 H (74-99) mg/dL POC Glucose (mg/dL) (75-99) mg/dL Calcium 7.7 L (8.4-10.2) mg/dL Phosphorus 5.5 H (2.5-4.5) mg/dL Magnesium 2.7 H (1.6-2.3) mg/dL Urine Protein (Negative) Urine Blood (Negative) Urine Bilirubin (Negative) Urine RBC (0-5) /hpf Urine Bacteria (None) /hpf Urine Mucus (None) /hpf 10/28/17 10/28/17 Range/Units 04:45 08:08 WBC (3.8-10.6) k/uL RBC (4.30-5.90) m/uL Hgb (13.0-17.5) gm/dL Hct (39.0-53.0) % RDW (11.5-15.5) % Plt Count (150-450) k/uL Neutrophils # (Manual) (1.3-7.7) k/uL Lymphocytes # (Manual) (1.0-4.8) k/uL ABG pCO2 (35-45) mmHg ABG pO2 (83-108) mmHg ABG HCO3 (21-25) mmol/L ABG O2 Saturation (94-97) % Sodium (137-145) mmol/L Potassium (3.5-5.1) mmol/L Chloride (98-107) mmol/L Carbon Dioxide (22-30) mmol/L BUN (9-20) mg/dL Creatinine (0.66-1.25) mg/dL Glucose (74-99) mg/dL POC Glucose (mg/dL) 228 H (75-99) mg/dL Calcium (8.4-10.2) mg/dL Phosphorus (2.5-4.5) mg/dL Magnesium (1.6-2.3) mg/dL Urine Protein Trace H (Negative) Urine Blood Small H (Negative) Urine Bilirubin 1+ H (Negative) Urine RBC 14 H (0-5) /hpf Urine Bacteria Rare H (None) /hpf Urine Mucus Rare H (None) /hpf Microbiology - Last 24 Hours (Table) 10/26/17 08:52 Blood Culture Gram Stain - Preliminary Blood Blood Culture - Preliminary Coagulase Negative Staph 10/26/17 09:02 Blood Culture - Preliminary Blood No Growth after 24 hours Assessment and Plan (1) Closed left hip fracture Narrative/Plan: He is to continue with routine postop orthopedic protocol including pain management, wound care, DVT prophylaxis, nonweightbearing with the left lower extremity, and medical management. We will continue to follow make further recommendations as appropriate.. Current Visit: Yes Status: Acute Priority: Medium Code(s): S72.002A - FRACTURE OF UNSP PART OF NECK OF LEFT FEMUR, INIT SNOMED Code(s): 480048662 Time with Patient: Less than 30
--- NOTE | 2017-10-28 11:24 | PN ---
PROGRESS NOTE DATE OF SERVICE: 10/27/2017. SUBJECTIVE: This is a white male with pneumonia, COPD and diastolic heart failure. Placed on BiPAP, is on nasal cannula. Some shortness of breath. He was transferred to ICU due to shortness of breath and weakness and confusion. His sodium was down to 122. He has been receiving Lasix. He has had positive blood culture which he was started with IV vancomycin. He is being treated for possible aspiration pneumonia. He was going to be intubated, but they held off on intubation and his respiratory oxygen level was okay on 3-4 L. Temp 97.9, pulse is 70 to 80, respiration 25 to 26, blood pressure is 90s over 70s. O2 100%. Weight is 107 kg. He is making decent urine output 1300 one shift and 450 another shift. Lungs show scattered rhonchi and wheeze and rales. CARDIOVASCULAR: S1, S2. He is alert but confused. He is obese. He has third-spacing of fluids and 3+ pedal edema and generalized edema. Abdomen is soft, nontender. EXTREMITIES: Trace edema. He has pancytopenia on his CBC. Sodium 122, potassium 5.6, BUN is 71, creatinine 1.41. His white count is down to 1.7, hemoglobin is 7.7. Platelet count is 29. ASSESSMENT: 1. Acute hypoxemic respiratory failure. 2. Aspiration pneumonia right lower lobe. 3. Status post hip fracture, status post repair. 4. Chronic obstructive pulmonary disease. 5. Bacteremia, gram-positive cocci in clusters. 6. Encephalopathy. 7. Cardiomyopathy. 8. Pancytopenia. 9. Nicotine addiction. 10.Squamous cell lung cancer. 11.Right pleural effusion. 12.Mediastinal adenopathy. 13.Gastroesophageal reflux disease. 14.Status post right thoracotomy. 15.Diabetes mellitus type 2. PLAN: Continue empiric antibiotics for bacteremia and new onset pancytopenia, Dr. Washburn, oncology, is monitoring. Hold blood thinners as platelet count is low. Continue on Solu-Medrol, bronchodilators with DuoNeb and Pulmicort. Fluids to be switched to normal saline. Hold his Lasix due to hyponatremia. Nephrology is being consulted. He is being held off his multiple medicines that can affect the kidney function. He is being treated for an aspiration pneumonia with vancomycin and Zosyn. Prognosis guarded. Continue multiple medications as mentioned above. Infectious Disease consulted. ICU time is 30 minutes. Discussed with the daughter the case. MMODL / IJN: [id number] /
[2017-10-28] MEDS: MULTIVITAMINS, THERA 1 EACH TAB PO SCH (11:37)
[2017-10-28 11:38] LABS: Glucose,Whole Blood 253 mg/dL (75-99)
[2017-10-28] MEDS: HYDROmorphone 1 MG/ML 1 ML SYRINGE IVP PRN (11:40)
[2017-10-28] MEDS ORDERED: INSULIN ASPART 100 UNIT/ML 1 ML 10 ML VIAL SQ SCH (12:00)
[2017-10-28 12:02] VITALS: TEMP 97.3
--- NOTE | 2017-10-28 12:34 | P.PN ---
Subjective Progress Note Date: 10/28/17 Principal diagnosis: Aspiration pneumonia Patient seen and examined in the ICU with nursing staff and family at bedside. The patient had more trouble with breathing overnight. He was placed back on BiPAP. The patient's blood pressures have been marginal. She has been receiving IV fluid hydration. The patient is unresponsive this morning. He is only responsive to painful stimuli. His BUN and creatinine are worsening. He patient's white blood cells, hemoglobin, platelets have not recovered. The patient's overall prognosis is discussed with the patient's daughter and his sister. They are understanding of multi-organ system failure. They do not want him intubated and are requesting DO NOT RESUSCITATE. The family is agreeable to meet with hospice and proceed within the next 24 hours. Objective - Vital Signs Vital signs: Vital Signs Temp 97.3 F L 10/28/17 12:00 Pulse 82 10/28/17 12:00 Resp 22 10/28/17 12:00 BP 91/50 10/28/17 12:00 Pulse Ox 100 10/28/17 12:00 Intake & Output 10/27/17 10/28/17 10/28/17 18:59 06:59 18:59 Intake Total 540 637.5 360.0 Output Total 1010 795 485 Balance -470 -157.5 -125.0 Weight 105.1 kg Intake: IV 310.0 Piperacillin-Tazobactam 3 50.0 .375 gm In Dextrose/Water 1 50ml.bag @ 12.5 mls/hr IVPB Q8HR [facility] Rx#: [id number] Sodium Chloride 0.9% 1, 260 000 ml @ 75 mls/hr IV . [id number] [facility] Rx#:[id number] Intake, IV Titration 540 637.5 50 Amount DAPTOmycin 650 mg In 50 Sodium Chloride 0.9% 50 ml @ 100 mls/hr IV Q24HR@ 1700 MEMO Rx#:[id number] Piperacillin-Tazobactam 3 50 37.5 .375 gm In Dextrose/Water 1 50ml.bag @ 12.5 mls/hr IVPB Q8HR MEMO Rx#: [id number] Sodium Chloride 0.9% 1, 440 600 50 000 ml @ 75 mls/hr IV . [id number] [facility] Rx#:[id number] Output: Urine 1010 795 485 Other: Voiding Method Indwelling Catheter Indwelling Catheter Indwelling Catheter - Exam Gen.: Patient is nonresponsive, responds only to painful stimuli, on bipap Cardiovascular: Irregular rate and rhythm, S1/S2 Lungs: Coarse breath sounds bilaterally Abdomen: Soft nontender nondistended positive bowel sounds Extremities: Trace edema - Labs CBC & Chem 7: 10/28/17 04:23 10/28/17 04:23 Labs: Abnormal Lab Results - Last 24 Hours (Table) 10/27/17 10/27/17 10/28/17 Range/Units 17:09 23:02 04:13 WBC (3.8-10.6) k/uL RBC (4.30-5.90) m/uL Hgb (13.0-17.5) gm/dL Hct (39.0-53.0) % RDW (11.5-15.5) % Plt Count (150-450) k/uL Neutrophils # (Manual) (1.3-7.7) k/uL Lymphocytes # (Manual) (1.0-4.8) k/uL ABG pCO2 33 L (35-45) mmHg ABG pO2 175 H (83-108) mmHg ABG HCO3 20 L (21-25) mmol/L ABG O2 Saturation 99.0 H (94-97) % Sodium (137-145) mmol/L Potassium (3.5-5.1) mmol/L Chloride (98-107) mmol/L Carbon Dioxide (22-30) mmol/L BUN (9-20) mg/dL Creatinine (0.66-1.25) mg/dL Glucose (74-99) mg/dL POC Glucose (mg/dL) 250 H 205 H (75-99) mg/dL Calcium (8.4-10.2) mg/dL Phosphorus (2.5-4.5) mg/dL Magnesium (1.6-2.3) mg/dL Urine Protein (Negative) Urine Blood (Negative) Urine Bilirubin (Negative) Urine RBC (0-5) /hpf Urine Bacteria (None) /hpf Urine Mucus (None) /hpf 10/28/17 10/28/17 10/28/17 Range/Units 04:23 04:23 04:45 WBC 1.9 L* (3.8-10.6) k/uL RBC 2.48 L (4.30-5.90) m/uL Hgb 7.6 L (13.0-17.5) gm/dL Hct 24.1 L (39.0-53.0) % RDW 21.4 H (11.5-15.5) % Plt Count 28 L* (150-450) k/uL Neutrophils # (Manual) 1.00 L (1.3-7.7) k/uL Lymphocytes # (Manual) 0.53 L (1.0-4.8) k/uL ABG pCO2 (35-45) mmHg ABG pO2 (83-108) mmHg ABG HCO3 (21-25) mmol/L ABG O2 Saturation (94-97) % Sodium 126 L (137-145) mmol/L Potassium 5.7 H (3.5-5.1) mmol/L Chloride 93 L (98-107) mmol/L Carbon Dioxide 19 L (22-30) mmol/L BUN 94 H* (9-20) mg/dL Creatinine 1.60 H (0.66-1.25) mg/dL Glucose 172 H (74-99) mg/dL POC Glucose (mg/dL) (75-99) mg/dL Calcium 7.7 L (8.4-10.2) mg/dL Phosphorus 5.5 H (2.5-4.5) mg/dL Magnesium 2.7 H (1.6-2.3) mg/dL Urine Protein Trace H (Negative) Urine Blood Small H (Negative) Urine Bilirubin 1+ H (Negative) Urine RBC 14 H (0-5) /hpf Urine Bacteria Rare H (None) /hpf Urine Mucus Rare H (None) /hpf 10/28/17 10/28/17 Range/Units 08:08 11:36 WBC (3.8-10.6) k/uL RBC (4.30-5.90) m/uL Hgb (13.0-17.5) gm/dL Hct (39.0-53.0) % RDW (11.5-15.5) % Plt Count (150-450) k/uL Neutrophils # (Manual) (1.3-7.7) k/uL Lymphocytes # (Manual) (1.0-4.8) k/uL ABG pCO2 (35-45) mmHg ABG pO2 (83-108) mmHg ABG HCO3 (21-25) mmol/L ABG O2 Saturation (94-97) % Sodium (137-145) mmol/L Potassium (3.5-5.1) mmol/L Chloride (98-107) mmol/L Carbon Dioxide (22-30) mmol/L BUN (9-20) mg/dL Creatinine (0.66-1.25) mg/dL Glucose (74-99) mg/dL POC Glucose (mg/dL) 228 H 253 H (75-99) mg/dL Calcium (8.4-10.2) mg/dL Phosphorus (2.5-4.5) mg/dL Magnesium (1.6-2.3) mg/dL Urine Protein (Negative) Urine Blood (Negative) Urine Bilirubin (Negative) Urine RBC (0-5) /hpf Urine Bacteria (None) /hpf Urine Mucus (None) /hpf Microbiology - Last 24 Hours (Table) 10/26/17 09:02 Blood Culture - Preliminary Blood No Growth after 48 hours 10/26/17 08:52 Blood Culture Gram Stain - Preliminary Blood Blood Culture - Preliminary Coagulase Negative Staph Assessment and Plan Assessment: Acute hypoxic respiratory failure Aspiration pneumonia, RLL s/p fall with right hip fracture, s/p repair Acute exacerbation of COPD Symptomatic anemia Bacteremia: G + cocci in clusters Encephalopathy Cardiomyopathy Pancytopenia - concerning for advanced MDS or leukemia Tobacco abuse History of squamous cell lung cancer, question recurrent Chronic right pleural effusion Mediastinal lymphadenopathy GERD Status post right thoracotomy and right upper lobectomy Diabetes mellitus type 2 Obesity No evidence of pulmonary edema on CXR O2 to maintain saturation greater than or equal to 90% Heme/onc recommendations appreciated - plan for BM biopsy once patient stabilizes, Lovenox once PLT > 50 Solu-Medrol taper Bronchodilators and Pulmicort Smoking cessation IVF 0.9 NS @ 75 cc/hr Hold Lasix Percussion and chest PT Sputum culture Consult nephrology Hold metformin, Ambien, Xanax, Lovenox, [place], Nicotine TD Lower extremity dopplers negative for DVT Seroquel Qhs and Ativan PRN Dilaudid PRN ABX: Zosyn and Vanco Appreciate ID recs Singulair Repeat CT chest as an outpatient May need biopsy pending CT report results. Pulmonary hygiene and incentive spirometry Smoking cessation is highly recommended GI and DVT prophylaxis: SCD's due to low PLT, Protonix Case is discussed with nephrology as well as primary care physician Family is at bedside and updated on the patient's overall condition and grave prognosis. He has multiorgan system failure. They are agreeable to DO NOT RESUSCITATE status at this time. They are agreeable to proceed with hospice. CCT 48 min
[2017-10-28 14:09] VITALS: BP 112/65; PULSE 83; RESP 24
[2017-10-29] MEDS ORDERED: CYANOCOBALAMIN 1,000 MCG/ML 1 ML VIAL IM ONE (09:00)
--- NOTE | 2017-11-17 17:30 | DS ---
DISCHARGE SUMMARY DATE OF TRANSFER FROM ICU: 10/27/17. DISCHARGE HOME: 10/28/2017 Actually patient was terminal care. He was admitted with pneumonia, sepsis secondary to pneumonia and neutropenic sepsis. The patient became obtunded with metabolic encephalopathy, unable to eat or drink for multiple days. Family made him comfort care at which time the patient was placed on comfort care intake of medications per family and patient 10/28/2017. MMODL / IJN: [id number] /
== END 2017-10-28 14:26 | disposition hospice, inpatient (51) | DRG 981 ==
LOC: EC 09:21 → 5ONC 10:51 → 6ICU 10-24 18:22 → 5ONC 10-25 21:05 → 6SEL 10-26 09:33 → 6ICU 10-27 02:12
PROVIDERS: ADMIT Family Medicine; ATTEND Family Medicine
PROC: 30233N1 Transfusion of Nonautologous Red Blood Cells into Peripheral Vein, Percutaneous Approach (ICD-10-PCS; principal; 2017-10-21)
PROC: 30233R1 Transfusion of Nonautologous Platelets into Peripheral Vein, Percutaneous Approach (ICD-10-PCS; 2017-10-24)
PROC: 0QS706Z Reposition Left Upper Femur with Intramedullary Internal Fixation Device, Open Approach (ICD-10-PCS; 2017-10-25)
PROC: 5A09457 Assistance with Respiratory Ventilation, 24-96 Consecutive Hours, Continuous Positive Airway Pressure (ICD-10-PCS; 2017-10-26)
DX: J44.1 Chronic obstructive pulmonary disease with (acute) exacerbation (principal); J96.01 Acute respiratory failure with hypoxia; J69.0 Pneumonitis due to inhalation of food and vomit; G93.40 Encephalopathy, unspecified; I50.31 Acute diastolic (congestive) heart failure; N17.9 Acute kidney failure, unspecified; D61.818 Other pancytopenia; R78.81 Bacteremia; C95.90 Leukemia, unspecified not having achieved remission; E87.1 Hypo-osmolality and hyponatremia; I42.9 Cardiomyopathy, unspecified; S72.22XA Displaced subtrochanteric fracture of left femur, initial encounter for closed fracture; K21.9 Gastro-esophageal reflux disease without esophagitis; D46.9 Myelodysplastic syndrome, unspecified; I11.0 Hypertensive heart disease with heart failure; E11.65 Type 2 diabetes mellitus with hyperglycemia; E66.9 Obesity, unspecified; E78.5 Hyperlipidemia, unspecified; F17.200 Nicotine dependence, unspecified, uncomplicated; F41.9 Anxiety disorder, unspecified; R01.1 Cardiac murmur, unspecified; R59.0 Localized enlarged lymph nodes; I48.91 Unspecified atrial fibrillation; J32.9 Chronic sinusitis, unspecified; Z66 Do not resuscitate; Z79.82 Long term (current) use of aspirin; Z79.899 Other long term (current) drug therapy; Z79.84 Long term (current) use of oral hypoglycemic drugs; Z95.810 Presence of automatic (implantable) cardiac defibrillator; Z90.2 Acquired absence of lung [part of]; Z85.118 Personal history of other malignant neoplasm of bronchus and lung; Z68.31 Body mass index [BMI] 31.0-31.9, adult; Z82.49 Family history of ischemic heart disease and other diseases of the circulatory system; Z80.1 Family history of malignant neoplasm of trachea, bronchus and lung; W01.0XXA Fall on same level from slipping, tripping and stumbling without subsequent striking against object, initial encounter; Y92.239 Unspecified place in hospital as the place of occurrence of the external cause
CPT/HCPCS: 36415; 36600; 70450; 71010; 71020; 71045; 71260; 72125; 73502; 76700; 76857; 80048; 80053; 81001; 82272; 82550; 82553; 82607; 82728; 82747; 82805; 83036; 83540; 83550; 83735; 83880; 83883; 84100; 84165; 84484; 85025; 85027; 85379; 85610; 85730; 86038; 86039; 86334; 86431; 86644; 86645; 86747; 86850; 86900; 86901; 86920; 87040; 87077; 87186; 93005; 93306; 93970; 94640; 94660; 94667; 94668; 94760; 99285